=== PATIENT | male | born 1960 | race Two or more races ===

== ENCOUNTER 2016-12-31 13:06 | Inpatient (IN) | payer OTHER ==
[~2016-12-31] VITALS: Ht 182.9 cm; Wt 61.7 kg
--- NOTE | 2016-12-31 13:18 | NUR ---
PT BIBRA TO ER BED 14. C/O DIZZINESS. PT STATES HAD A SYNCOPAL EPISODE EARLIER THIS MORNING. ALSO C/O LOWER EXTREMITY PAIN. WOUNDS NOTED TO W/ VARRYING STAGES OF HEALING. APPEARS ANXIOUS. ON MONITIOR. AWAITINGMD EVAL.
--- NOTE | 2016-12-31 13:20 | NUR ---
DR QUINTANILLA AT BEDSIDE FOR EVAL.
[2016-12-31] MEDS ORDERED: IV NS 0.9% 1,000 ML BAG IV ONE (13:30)
[2016-12-31] MEDS ORDERED: IV NS 0.9% 1,000 ML ONE (13:41)
[2016-12-31] MEDS ORDERED: IV SET PRIMARY 1 EA INFUS.SET MC ONE (13:41)
[2016-12-31] MEDS ORDERED: clonazePAM 1 MG TABLET ONE (13:41)
[2016-12-31] MEDS ORDERED: clonazePAM 1 MG TABLET PO ONE (14:00)
--- NOTE | 2016-12-31 14:00 | NUR ---
IV LINE STARTED BLOOD DRAWN AND SENT TO LAB.
[2016-12-31 14:09] LABS: BASOPHILS % (AUTO) 0.5 % (0.0-2.0); EOSINOPHILS # (AUTO) 0.1 /CMM (0.0-0.7); EOSINOPHILS % (AUTO) 1.1 % (0.0-6.0); HEMATOCRIT 39 % (39-51); HEMOGLOBIN 12.4 g/dL (13.5-17.5); LYMPHOCYTES # (AUTO) 0.4 /CMM (0.8-4.8); LYMPHOCYTES % (AUTO) 7.6 % (20.0-44.0); MEAN CORPUSCULAR HEMOGLOBIN 26 PG (26.0-33.0); MEAN CORPUSCULAR HGB CONC 32 g/dl (31.0-36.0); MEAN CORPUSCULAR VOLUME 82 fL (80-96); MONOCYTES # (AUTO) 0.3 /CMM (0.1-1.30); MONOCYTES % (AUTO) 6.3 % (2.0-12.0); NEUTROPHILS % (AUTO) 84.5 % (43.0-81.0); PLATELET COUNT (AUTO) 414 /CMM (150-450); RDW COEFFICIENT OF VARIATION 16.2 (11.5-15.0); RED BLOOD CELL COUNT(AUTO) 4.76 MIL/uL (4.5-6.0); WHITE BLOOD COUNT (AUTO) 4.8 K/uL (4.3-11.0)
[2016-12-31 14:18] LABS: CALCIUM, SERUM 8.3 mg/dL (8.5-10.1); CARBON DIOXIDE 26 mmol/L (21-32); CHLORIDE 101 mmol/L (98-107); CREATININE 0.8 mg/dL (0.6-1.3); GLUCOSE 135 mg/dL (74-106); POTASSIUM 4.2 mmol/L (3.5-5.1); SODIUM SERUM 135 mmol/L (136-145); UREA NITROGEN, BLOOD 17 mg/dL (7-18)
[2016-12-31 14:22] LABS: INR 1.12 (0.87-1.13); PROTHROMBIN TIME 11.7 SECS (9.5-12.7)
[2016-12-31 14:24] LABS: ALANINE AMINOTRANSFERASE 38 U/L (12-78); ALBUMIN 3.4 g/dL (3.4-5.0); ALKALINE PHOSPHATASE 150 U/L (46-116); ASPARTATE AMINOTRANSFERASE 80 U/L (15-37); BILIRUBIN,DIRECT 0.6 mg/dL (0.0-0.2); TOTAL PROTEIN, SERUM 8.4 g/dL (6.4-8.2)
[2016-12-31 14:26] LABS: TROPONIN I < 0.017 ng/mL (0.00-0.056)
[2016-12-31] MEDS ORDERED: MORPHINE SULFATE SR 30 MG TABLET.SA PO ONE (14:30)
[2016-12-31] MEDS ORDERED: hydrOXYzine 10 MG TABLET PO ONE (14:30)
[2016-12-31] MEDS ORDERED: EMTR1TAB17 PO (14:48)
[2016-12-31] MEDS ORDERED: CLON1TAB PO (14:48)
[2016-12-31] MEDS ORDERED: CALC-838 PO (14:48)
[2016-12-31] MEDS ORDERED: ATOV750O PO (14:48)
[2016-12-31] MEDS ORDERED: DARU1TAB PO (14:48)
[2016-12-31] MEDS ORDERED: MORP30TA PO (14:48)
[2016-12-31] MEDS ORDERED: ACYC800T PO (14:48)
[2016-12-31] MEDS ORDERED: BUPR300T52 PO (14:48)
[2016-12-31] MEDS ORDERED: CALC-883 PO (14:48)
[2016-12-31] MEDS ORDERED: HYDR50CA PO (14:48)
[2016-12-31] MEDS ORDERED: DOLU50TA PO (14:48)
[2016-12-31] MEDS ORDERED: FOLI1TAB16 PO (14:48)
[2016-12-31] MEDS ORDERED: DOCU-25 PO (14:48)
[2016-12-31] MEDS ORDERED: ZINC50TA2 PO (14:48)
--- NOTE | 2016-12-31 14:50 | NUR ---
REPORT GIVEN TO KAYA. PT AWAITING TRANSFER TO FLOOR.
[2016-12-31 15:25] VITALS: BP 127/86
[2016-12-31 15:30] VITALS: BP 127/86
[2016-12-31] MEDS ORDERED: Medication Not On Formulary EA (Emtricitabine/Tenofov Alafenam (Descovy 200-25 mg Tablet PO SCH (15:30)
[2016-12-31] MEDS: ATOVAQUONE SUSP 750 MG/5 ML PACKET PO SCH ×2 (15:30→18:26)
[2016-12-31] MEDS ORDERED: Medication Not On Formulary EA (Dolutegravir Sodium (Tivicay) 50 MG) PO SCH (15:30)
--- NOTE | 2016-12-31 15:30 | NUR ---
RN NOTES RECEIVED PATIENT FROM ER, ARRIVED VIA GURNEY ASSISTED TO BED. PATIENT AWAKE ALERT AND VERBALLY RESPONSIVE ABLE TO MAKE NEEDS KNOWN. RESPIRATIONS EVEN AND UNLABORED, PER PATIENT HAS ANXIETY AND CHRONIC LEG WOUNDS WILL ASSESS. DR. SANDOVAL AWARE OF PATIENT'S ARRIVAL WILL CARRY OUT ADMISSION ORDERS AND CONTINUE TO MONITOR. IV ACCESS TO RIGHT AC NOTED PATENT AND INTACT NO REDNESS OR INFILTRATION NOTED. ORIENTED TO ROOM AND UNIT, CALL LIGHT WITHIN EASY REACH, WILL CONTINUE TO MONITOR
[2016-12-31] MEDS ORDERED: LORAZEPAM INJ 2 MG/ML VIAL ONE (15:54)
--- NOTE | 2016-12-31 16:10 | NUR ---
PT REFUSING TO GO TO CT SCAN. DEMANDING FOR ATIVAN. DR NAM MADE AWARE. ORDER FOR ATIVAN 1MG IVP. ORDER CARRIED OUT.
[2016-12-31] MEDS ORDERED: IV NS 0.9% 1,000 ML IV PRN (16:19)
[2016-12-31] MEDS ORDERED: MAG HYDROX/AL HYDROX/SIMETH 30 ML UDC PO PRN (16:30)
[2016-12-31] MEDS ORDERED: ZOLPIDEM TARTRATE 5 MG TABLET PO PRN (16:30)
[2016-12-31] MEDS: PANTOPRAZOLE 40 MG TABLET.DR PO SCH (16:30)
[2016-12-31] MEDS ORDERED: MAGNESIUM HYDROXIDE 30 ML UDC PO PRN (16:30)
[2016-12-31] MEDS ORDERED: Z GUARD REMEDY 2 OZ OINT TP PRN (16:30)
[2016-12-31] MEDS ORDERED: ONDANSETRON HCL/PF 4 MG/2 ML VIAL IVP PRN (16:30)
[2016-12-31] MEDS ORDERED: ACETAMINOPHEN 325 MG TABLET PO PRN (16:30)
[2016-12-31] MEDS ORDERED: hydrOXYzine PAMOATE 25 MG CAPSULE PO SCH (17:00)
[2016-12-31] MEDS: FOLIC ACID 1 MG TABLET PO SCH (18:26)
[2016-12-31] MEDS: ACYCLOVIR 800 MG TABLET PO SCH (18:26)
[2016-12-31] MEDS: DOCUSATE SODIUM 100 MG CAPSULE PO SCH (18:26)
[2016-12-31] MEDS: HYDROCODONE/APAP 5/325MG 1 EACH TABLET PO PRN ×2 (18:30→23:00)
--- NOTE | 2016-12-31 19:30 | NUR ---
ARMORED VEHICLE OFFICER NOTE RECEIVED PATIENT AWAKE AND ALERT IN BED. ABLE TO MAKE NEEDS KNOWN. NO RESPIRATORY DISTRESS OR SOB NOTED. PATIENT STATES HE IS HAVING 8/10 GENERALIZED PAIN. RELAXATION TECHNIQUES PROVIDED. WILL ADMINISTER PAIN MEDICATION ORDERED. IV SITE INTACT, WITH NO REDNESS OR INFILTRATION NOTED. BED LOCKED AND IN LOWEST POSITION. SIDE RAILS UP, CALL LIGHT WITHIN REACH. WILL CONTINUE TO MONITOR.
--- NOTE | 2016-12-31 19:30 | NUR ---
RN NOTES PATIENT IN AWAKE ALERT AND VERBALLY RESPONSIVE ABLE TO MAKE NEEDS KNOWN. RESPIRATIONS EVEN AND UNLABORED, PER PATIENT HAS ANXIETY AND CHRONIC LEG WOUNDS WILL ASSESS. DR. SANDOVAL AWARE OF PATIENT'S ARRIVAL WILL CARRY OUT ADMISSION ORDERS AND CONTINUE TO MONITOR. IV ACCESS TO RIGHT AC NOTED PATENT AND INTACT NO REDNESS OR INFILTRATION NOTED. ORIENTED TO ROOM AND UNIT, CALL LIGHT WITHIN EASY REACH, WILL CONTINUE TO MONITOR AND ENDORSE TO NEXT SHIFT FOR CONTINUITY OF CARE
[2016-12-31 20:00] VITALS: BP 144/87
[2016-12-31] MEDS: MORPHINE SULFATE SR 30 MG TABLET.SA PO PRN (20:18)
[2016-12-31 22:00] VITALS: BP 144/87
[2016-12-31] MEDS: clonazePAM 1 MG TABLET PO SCH (22:25)
[2017-01-01] VITALS (8 sets, daily range): BP systolic 105–146; BP diastolic 73–98
--- NOTE | 2017-01-01 00:38 | NUR ---
RN NOTES: PATIENT REQUESTED FOR SOMETHING TO HELP HIM SLEEP. ADMINISTERED AMBIEN PO. WILL CONT TO MONITOR.
[2017-01-01] MEDS: HYDROCODONE/APAP 5/325MG 1 EACH TABLET PO PRN ×4 (03:40→17:50)
--- NOTE | 2017-01-01 06:23 | NUR ---
TECHNICIAN CHEMICAL CLEANING NOTE PATIENT STABLE. AWAKE IN BED. NO RESPIRATORY DISTRESS OR SOB AT THIS TIME. PATIENT STATES HE IS HAVING 8/10 GENERALIZED PAIN. NO PAIN MEDICATION DUE AT THIS TIME. RELAXATION TECHNIQUES PROVIDED. ALL NEEDS MET AND ATTENDED TO. WILL ENDORSE TO DAY SHIFT FOR SUNNY.
[2017-01-01] MEDS: PANTOPRAZOLE 40 MG TABLET.DR PO SCH (07:30)
--- NOTE | 2017-01-01 07:56 | NUR ---
OVERHEAD CRANE INSPECTOR INITIAL NOTES REPORT RECEIVED AT THE BEDSIDE. PATIENT IS SLEEPING. NO SOB OR DISTRESS NOTED AT THIS TIME. PATIENT DOES NOT APPEAR TO BE IN PAIN, NO FACIAL GRIMACE NOTED. HEART RATE ST AT 107. BED IN A LOW POSITION, CALL LIGHT WITHIN PATIENT REACH. WILL CONTINUE TO MONITOR.
[2017-01-01] MEDS: ATOVAQUONE SUSP 750 MG/5 ML PACKET PO SCH (08:00)
[2017-01-01] MEDS: ACYCLOVIR 800 MG TABLET PO SCH ×2 (08:00→08:06)
[2017-01-01] MEDS: DOCUSATE SODIUM 100 MG CAPSULE PO SCH ×2 (08:02→17:00)
[2017-01-01] MEDS: FOLIC ACID 1 MG TABLET PO SCH (08:03)
[2017-01-01] MEDS: hydrOXYzine PAMOATE 25 MG CAPSULE PO SCH ×2 (08:04→17:50)
[2017-01-01] MEDS: clonazePAM 1 MG TABLET PO SCH ×2 (08:04→17:50)
[2017-01-01] MEDS: CALCIUM CARB 600MG /VIT D 1 EACH TABLET PO SCH (08:05)
[2017-01-01] MEDS: CHOLECALCIFEROL 1,000 UNIT TABLET (VIT D3) PO SCH (08:05)
[2017-01-01] MEDS: ZINC SULFATE 220 MG CAPSULE PO SCH (08:05)
[2017-01-01] MEDS: BUPROPION XL 150 MG TAB.ER.24 PO SCH (08:05)
[2017-01-01] MEDS: MORPHINE SULFATE SR 30 MG TABLET.SA PO PRN ×2 (10:02→23:02)
[2017-01-01 10:14] LABS: BASOPHILS % (AUTO) 0.3 % (0.0-2.0); EOSINOPHILS # (AUTO) 0.3 /CMM (0.0-0.7); EOSINOPHILS % (AUTO) 8.6 % (0.0-6.0); HEMATOCRIT 37 % (39-51); HEMOGLOBIN 11.7 g/dL (13.5-17.5); LYMPHOCYTES # (AUTO) 0.3 /CMM (0.8-4.8); LYMPHOCYTES % (AUTO) 9.7 % (20.0-44.0); MEAN CORPUSCULAR HEMOGLOBIN 26 PG (26.0-33.0); MEAN CORPUSCULAR HGB CONC 32 g/dl (31.0-36.0); MEAN CORPUSCULAR VOLUME 83 fL (80-96); MONOCYTES # (AUTO) 0.3 /CMM (0.1-1.30); MONOCYTES % (AUTO) 8.2 % (2.0-12.0); NEUTROPHILS # (AUTO) 2.5 /CMM (1.8-8.9); NEUTROPHILS % (AUTO) 73.2 % (43.0-81.0); PLATELET COUNT (AUTO) 333 /CMM (150-450); RDW COEFFICIENT OF VARIATION 17.1 (11.5-15.0); RED BLOOD CELL COUNT(AUTO) 4.45 MIL/uL (4.5-6.0); WHITE BLOOD COUNT (AUTO) 3.4 K/uL (4.3-11.0)
[2017-01-01 10:22] LABS: ALBUMIN 3.2 g/dL (3.4-5.0); BILIRUBIN,TOTAL 1.1 mg/dL (0.2-1.0); CALCIUM, SERUM 8.4 mg/dL (8.5-10.1); CREATININE 0.7 mg/dL (0.6-1.3); MAGNESIUM 2.3 mg/dL (1.8-2.4); PHOSPHORUS 4.4 mg/dL (2.5-4.9); POTASSIUM 3.6 mmol/L (3.5-5.1); TOTAL PROTEIN, SERUM 8.2 g/dL (6.4-8.2)
[2017-01-01 10:28] LABS: PREALBUMIN 13.6 MG/DL (18.0-35.7); THYROID STIMULATING HORMONE 7.79 uIU/mL (0.358-3.74)
--- NOTE | 2017-01-01 11:01 | NUR ---
Social service consult requested by Dr. Barboza for possible homelessness. Pt. was admitted to [facility] for syncope. Pt. is HIV positive and non-compliant with his medication. ZOEY met with pt. bedside. Pt. is alert and oriented x4. Pt. informed ZOEY he has been HIV positive for the past 33 years. Pt. states he has been to several hospitals in the past month. Pt. was initially at [facility] for four days and left AMA. Pt. states he took the bus to [facility] where he was hospitalized for a few days and discharged to the [facility] clinic located on [address], in [place]. Pt. was at the clinic yesterday and was sent to [facility] ED due to a syncope episode. Pt. informed ZOEY he resides at [facility] and has a housing advocate named Jaime. Pt. was unable to give ZOEY Sandoval's contact information. Pt. is open to placement and ZOEY informed trimming caser Daxa regarding pt. wanting placement. Pt. has an appointment tomorrow at the [facility] clinic on [address], in [place].
--- NOTE | 2017-01-01 11:38 | NUR ---
WOUND CARE CONSULT: PT PRESENTS WITH SACRAL SCARRING, MULTIPLE SCARS ON BODY INCLUDING LOWER LEGS AND SOME DRY ULCERS TO LOWER LEGS, PRESENT ON ADMISSION. EDEMA RESOLVING IN LOWER LEGS. RECOMMENDATIONS MADE FOR WOUND CARE. DISCUSSED WITH NURSING STAFF. DPM CONSULT WAS CALLED BY . WLL SEE PRN. [place]SON IN AGREEMENT WITH PLAN OF CARE.
--- NOTE | 2017-01-01 11:57 | NUR ---
RN NOTE PATIENT IS REFUSING IV FLUIDS AT THIS TIME. STATES "I DRINK ENOUGH" WILL INFORM MD.
[2017-01-01] MEDS ORDERED: HYDROGEL DRESSING 90 GM TUBE TP PRN (12:00)
[2017-01-01] MEDS: HYDROGEL DRESSING 90 GM TUBE TP SCH (13:22)
--- NOTE | 2017-01-01 15:18 | NUR ---
SW received a call from pt's DANYELLE Renteria informing SW that pt. would like to speak with her. SW met with pt. bedside. Pt. was sitting on his bed naked with a T-shirt covering his private parts. Pt. informed SW that he would like to leave the hospital because he hasn't seen any doctors and wants to go to the clinic to get his medications. SW explained to pt. that the doctors have seen him today and it would be best for him to stay at the hospital until his appointment tomorrow which is across the street from the hospital. Pt. informed SW he will make a call and decide as to staying or leaving. SW informed DANYELLE Renteria and artist suspect Adriana regarding pt. might wanting to leave AMA.
--- NOTE | 2017-01-01 18:19 | NUR ---
RN NOTES PATIENT STARTED EEG AND THEN ASKED TO STOP THE TEST. PATIENT IS REFUSING TO FINISH.
--- NOTE | 2017-01-01 18:36 | NUR ---
MS RN CLOSING NOTES NO SIGNIFICANT CHANGES IN PATIENT CONDITION THROUGHOUT THE SHIFT. NO SOB OR DISTRESS NOTED AT THIS TIME. PATIENT MEDICATED FOR PAIN. BED IN LOW POSITION, CALL LIGHT WITHIN PATIENT REACH. WILL ENDORSE FOR SUNNY.
--- NOTE | 2017-01-01 19:50 | NUR ---
MS/EMERGENCY SERVICES DISPATCHER; RECEIVED PT AT THE HALLWAY ON A WHEEL CHAIR AWAKE, ALERT AND ORIENTED. NO MENTIONED OF PAIN. HL RAC INTACT. PT WEARING HIS ON CLOTHES. PT WANTS TO SMOKE. I TOLD THE PT HE NEEDS TO SIGN THE SMOKING CONSENT WITH HE DID. PT WENT TO THE LOBBY WITH LORRY WEIGHER ON A WHEELCHAIR TO SMOKE. CONTINUE TO MONITOR.
--- NOTE | 2017-01-01 20:10 | NUR ---
MS/COMMERCIAL GREEN BUILDING DESIGNER; PT BACK FROM SMOKING ON A WHEELCHAIR ACCOMPANIED BY MANAGER RECRUITING. WENT TO HIS ROOM. WILL CONTINUE TO MONITOR. PT HAS NO IVF DUE TO REFUSING SINCE FROM DAY SHIFT .
--- NOTE | 2017-01-02 | NUR ---
MS/CUTTING AND SPLICING SUPERVISOR; PT INSISTED TO SMOKE, CHARGE NURSE INFORMED. PT WENT TO THE LOBBY VIA WHEELCHAIR ACCOMPANIED BY THE MUSEUM ATTENDANT.
--- NOTE | 2017-01-02 00:15 | NUR ---
MS/CAMP HEAD COUNSELOR; PT BACK FROM SMOKING ACCOMPANIED BY THE CAR SALTER VIA WHEELCHAIR. PT WENT TO BED.
--- NOTE | 2017-01-02 06:00 | NUR ---
MS/CITY DISTRIBUTION CLERK; PT WENT TO SMOKE AGAIN ACCOMPANIED BY THE DENTAL CERAMIST ASSISTANT VIA WHEELCHAIR.
--- NOTE | 2017-01-02 06:45 | NUR ---
MS/FASHION DIRECTOR; PT SLEPT ONLY FOR SHORT TIME . BREATHING NON LABORED. WILL CONTINUE TO MONITOR. CALL LIGHT WITHIN REACH. PT SAID HE VOIDED X5 BUT NO BM. WILL ENDORSE TO THE DAY SHIFT NURSE.
[2017-01-02 07:10] LABS: *BASOS 0 % (.); *EOS 9 % (.); *EOS, ABSOLUTE 0.3 x10E3/uL (0.0-0.4); *HCT 37.6 % (37.5-51.0); *HGB 11.7 g/dL (12.6-17.7); *IMMATURE GRANULOCYTES 0 % (.); *LYMPHOCYTES 13 % (.); *LYMPHS, ABSOLUTE 0.4 x10E3/uL (0.7-3.1); *MCH 25.9 pg (26.6-33.0); *MCHC 31.1 g/dL (31.5-35.7); *MCV 83 fL (79-97); *MONOCYTES 9 % (.); *MONOS, ABSOLUTE 0.3 x10E3/uL (0.1-0.9); *NEUTROPHILS 69 % (.); *NEUTROPHILS, ABSOLUTE 2.1 x10E3/uL (1.4-7.0); *PLT 383 x10E3/uL (150-379); *RBC 4.51 x10E6/uL (4.14-5.80); *RDW 16.3 % (12.3-15.4)
--- NOTE | 2017-01-02 07:10 | NUR ---
MS RN OPENING NOTES RECEIVED PT. FROM NIGHTSHIFT NURSE IN STABLE CONDITION. PT. IS A/O X3. NO SOB OR SIGNS OF DISTRESS NOTED. BREATHING IS EVEN AND UNLABORED. ON ROOM AIR AND SATING WELL AT 100%. PT. DENIES ANY DIZZINESS AT THIS TIME. NO SYNCOPAL EPISODES OCCURRED DURING THE NIGHTSHIFT. IV PRESENT ON RIGHT AC PATENT AND INTACT. PT. IS REFUSING ORDERED NS FLUIDS AT THIS TIME. MD IS AWARE. BED IN LOW LOCKED POSITION, SIDE RAILS UP X2, CALL LIGHT WITHIN REACH. WILL CONTINUE TO MONITOR.
[2017-01-02 07:58] VITALS: BP 124/92
[2017-01-02 08:00] VITALS: BP 124/92
[2017-01-02] MEDS: ACYCLOVIR 800 MG TABLET PO SCH (08:23)
[2017-01-02] MEDS: clonazePAM 1 MG TABLET PO SCH ×2 (08:23→16:54)
[2017-01-02] MEDS: HYDROGEL DRESSING 90 GM TUBE TP SCH (08:23)
[2017-01-02] MEDS: hydrOXYzine PAMOATE 25 MG CAPSULE PO SCH ×2 (08:28→16:54)
[2017-01-02] MEDS: ZINC SULFATE 220 MG CAPSULE PO SCH (08:32)
[2017-01-02] MEDS: CHOLECALCIFEROL 1,000 UNIT TABLET (VIT D3) PO SCH (08:32)
[2017-01-02] MEDS: FOLIC ACID 1 MG TABLET PO SCH (08:32)
[2017-01-02] MEDS: DOCUSATE SODIUM 100 MG CAPSULE PO SCH ×2 (08:33→16:54)
[2017-01-02] MEDS: ATOVAQUONE SUSP 750 MG/5 ML PACKET PO SCH (08:33)
[2017-01-02] MEDS: PANTOPRAZOLE 40 MG TABLET.DR PO SCH (08:34)
[2017-01-02] MEDS: CALCIUM CARB 600MG /VIT D 1 EACH TABLET PO SCH (08:36)
[2017-01-02] MEDS: BUPROPION XL 150 MG TAB.ER.24 PO SCH (08:36)
--- NOTE | 2017-01-02 09:26 | NUR ---
MS RN NOTES PT. WAS WHEELED OFF THE UNIT TO GO SMOKE. ACCOMPANIED BY PRICILLA THE AIRLINE MECHANIC
[2017-01-02] MEDS ORDERED: LACTULOSE 10 G/15 ML UDC (PYXIS) PO PRN (10:30)
[2017-01-02] MEDS: GABAPENTIN 300 MG CAPSULE PO SCH ×3 (10:48→16:53)
[2017-01-02] MEDS: SENNOSIDES 8.6 MG TABLET PO SCH ×2 (10:48→21:05)
[2017-01-02 12:11] LABS: *% CD 4 POS. LYMPH 6.3 % (30.8-58.5); *% CD 8 POS. LYMPH 75.7 % (12.0-35.5); *ABSOLUTE CD 4 HELPER 25 /uL (359-1519); *ABSOLUTE CD 8 SUPPRESSOR 303 /uL (109-897); *CD4/CD8 RATIO 0.08 (0.92-3.72)
--- NOTE | 2017-01-02 12:49 | NUR ---
SW met with pt. bedside and his [facility] case reviewer Michelle Giraldo and Macy Hoffman [phone], Managed Care Weed Controller bedside. Michelle and Macy discussed with pt. if he wants to continue to be managed by [facility] since pt. has been non-compliant and leaving AMA from several hospitals. Currently pt. has agreed into a verbal contract with [facility] to follow plan of care. Pt. has an outside psychiatrist that he sees frequently. During the meeting , pt. became emotional and started to tear up stating his youngest sister has cancer and recently had a double mastectomy. SW offered emotional support to pt. Pt. is willing to go to long-term facility and case reviewer Negra Mendez is aware. Weed Controller Randi informed SW that pt. is involved with [facility]. Randi also stated that if pt. disagrees to go to SNF, [facility] sober living programs in [place] might be an option as well and to call Ashutosh at .
[2017-01-02 13:26] LABS: BASOPHILS % (AUTO) 0.4 % (0.0-2.0); EOSINOPHILS # (AUTO) 0.4 /CMM (0.0-0.7); EOSINOPHILS % (AUTO) 11.9 % (0.0-6.0); HEMATOCRIT 36 % (39-51); HEMOGLOBIN 11.4 g/dL (13.5-17.5); LYMPHOCYTES # (AUTO) 0.6 /CMM (0.8-4.8); LYMPHOCYTES % (AUTO) 19.6 % (20.0-44.0); MEAN CORPUSCULAR HEMOGLOBIN 27 PG (26.0-33.0); MEAN CORPUSCULAR HGB CONC 32 g/dl (31.0-36.0); MEAN CORPUSCULAR VOLUME 84 fL (80-96); MONOCYTES # (AUTO) 0.3 /CMM (0.1-1.30); MONOCYTES % (AUTO) 10.1 % (2.0-12.0); NEUTROPHILS # (AUTO) 1.9 /CMM (1.8-8.9); PLATELET COUNT (AUTO) 317 /CMM (150-450); RDW COEFFICIENT OF VARIATION 17.1 (11.5-15.0); RED BLOOD CELL COUNT(AUTO) 4.26 MIL/uL (4.5-6.0); WHITE BLOOD COUNT (AUTO) 3.3 K/uL (4.3-11.0)
[2017-01-02 13:35] LABS: BILIRUBIN,TOTAL 0.7 mg/dL (0.2-1.0); CALCIUM, SERUM 8.1 mg/dL (8.5-10.1); CREATININE 0.7 mg/dL (0.6-1.3); TOTAL PROTEIN, SERUM 7.7 g/dL (6.4-8.2)
[2017-01-02] MEDS: MORPHINE SULFATE SR 30 MG TABLET.SA PO PRN (14:37)
[2017-01-02 16:00] VITALS: BP 107/73
--- NOTE | 2017-01-02 16:25 | NUR ---
ZOEY received a call from Med Surg director Corey stating that pt. would like to speak with SW. SW met with pt. bedside. Pt. informed SW that he would like for someone to buy him cigarettes. SW reiterated to pt. informing him that it is against hospital policy to buy him cigarettes. Pt. was not very happy with the response SW gave him and began mumbling saying, " this is so stupid, thank you."
[2017-01-02] MEDS: HYDROCODONE/APAP 5/325MG 1 EACH TABLET PO PRN (17:26)
--- NOTE | 2017-01-02 18:41 | NUR ---
MS RN CLOSING NOTES PT. REMAINS IN STABLE CONDITION. ALL NEEDS WERE MET DURING SHIFT AND ORDERS CARRIED OUT ACCORDINGLY. THERE WERE NO ACUTE CHANGES IN CONDITION DURING SHIFT. ALL SAFETY MEASURES IN PLACE. WILL ENDORSE TO NIGHTSHIFT NURSE FOR SUNNY
--- NOTE | 2017-01-02 19:30 | NUR ---
RN NOTES RECEIVED PATIENT UP IN WHEELCHAIR, AO X 3, ABLE TO MAKE NEEDS KNOWN. NO ACUTE DISTRESS NOTED. IV SITE PATENT, INTACT; FLUSHED. REASSURANCE GIVEN FOR ANXIETY. SAFETY REMINDERS GIVEN. CALL LIGHT WITHIN EASY REACH. WILL CONTINUE TO MONITOR.
[2017-01-02 20:00] VITALS: BP 104/73
--- NOTE | 2017-01-03 06:10 | NUR ---
RN NOTES PATIENT ASLEEP, EASILY AROUSABLE. RESPIRATIONS EVEN. NO SIGNS OF PAIN NOTED. DUE MEDS GIVEN WITH NO ASE NOTED. NEEDS ATTENDED. SAFETY PRECAUTIONS AND COMFORT MEASURES IN PLACE. WILL GIVE REPORT TO DAY SHIFT FOR CONTINUITY OF CARE.
[2017-01-03 08:00] VITALS: BP 100/58
--- NOTE | 2017-01-03 08:00 | NUR ---
m/s rehabilitation engineer: initial assessment received pt in bed sounds asleep, but easily arousable. no s/s of discomfort. call light within reach. will continue to monitor.
[2017-01-03] MEDS ORDERED: ASPIRIN 81 MG TAB.CHEW PO SCH (09:00)
[2017-01-03] MEDS: ZINC SULFATE 220 MG CAPSULE PO SCH (10:10)
[2017-01-03] MEDS: PANTOPRAZOLE 40 MG TABLET.DR PO SCH (10:10)
[2017-01-03] MEDS: clonazePAM 1 MG TABLET PO SCH (10:11)
[2017-01-03] MEDS: FOLIC ACID 1 MG TABLET PO SCH (10:11)
[2017-01-03] MEDS: hydrOXYzine PAMOATE 25 MG CAPSULE PO SCH (10:11)
[2017-01-03] MEDS: DOCUSATE SODIUM 100 MG CAPSULE PO SCH (10:11)
[2017-01-03] MEDS: ACYCLOVIR 800 MG TABLET PO SCH (10:11)
[2017-01-03] MEDS: CHOLECALCIFEROL 1,000 UNIT TABLET (VIT D3) PO SCH (10:11)
[2017-01-03] MEDS: GABAPENTIN 300 MG CAPSULE PO SCH ×2 (10:11→13:12)
[2017-01-03] MEDS: ATOVAQUONE SUSP 750 MG/5 ML PACKET PO SCH (10:13)
[2017-01-03] MEDS ORDERED: NICOTINE PATCH (21MG) 21 MG PATCH.TD24 TD SCH (10:14)
[2017-01-03] MEDS: BUPROPION XL 150 MG TAB.ER.24 PO SCH (10:14)
[2017-01-03] MEDS: CALCIUM CARB 600MG /VIT D 1 EACH TABLET PO SCH (10:56)
[2017-01-03] MEDS: MORPHINE SULFATE SR 30 MG TABLET.SA PO PRN (10:57)
--- NOTE | 2017-01-03 11:00 | NUR ---
m/s nurse transplant: notes seen by dr. love's student at this time.
[2017-01-03] MEDS: HYDROGEL DRESSING 90 GM TUBE TP SCH (11:04)
--- NOTE | 2017-01-03 11:30 | NUR ---
m/s chief of staff doctor: notes tx done to ble ulcer. instructed to call for assistance. will continue to monitor.
--- NOTE | 2017-01-03 13:37 | NUR ---
ZOEY was informed by director of casework Negra Mendez that pt. was accepted to [facility] and will be going there today. ZOEY contacted [facility] hospitality coordinator Michelle Giraldo and left her a voicemail message informing her that pt. will be discharged to [facility] located at [id number] [place] [address]. [place] .
--- NOTE | 2017-01-03 14:00 | NUR ---
m/s head silverman: md visit seen and examined by dr. love with order to discharge to [facility]. order acknowledged. pt made aware.
--- NOTE | 2017-01-03 14:45 | NUR ---
m/s route process administrator: notes placed a call to hermann lucero (sister) at this #[phone], but it's not a working number. pt doesn't her phone number. josiane sims notified, spoke to flo (rn) for continuity of care.
--- NOTE | 2017-01-03 15:30 | NUR ---
m/s turfgrass management professor: d'c instructions discharged instructions given to pt and verbalized understanding. pt refused ble ulcer photos. drsg remains in place, clean, and dry. no drainage/discharge noted. still awaiting for ambulance. will monitor.
--- NOTE | 2017-01-03 15:40 | NUR ---
m/s information analyst: notes h/l removed with tip intact with no swelling, no redness, and no bleeding noted.
--- NOTE | 2017-01-03 16:20 | NUR ---
m/s water restoration technician: notes med response here and report given to one of the crew. all belongings/valuables returned to pt
--- NOTE | 2017-01-03 17:00 | NUR ---
m/s software computer specialist: discharged discharged to snf in stable condition with all valuables and all d'c papers via roger accompanied by 2 med response crew.
== END 2017-01-03 17:03 | DRG 48 ==
LOC: ER 13:09 → TELE 15:05 → MED 01-01 08:48
PROVIDERS: ADMIT Internal Medicine; ATTEND Internal Medicine
DX: G90.8 Other disorders of autonomic nervous system (principal); B20 Human immunodeficiency virus [HIV] disease; E43 Unspecified severe protein-calorie malnutrition; R64 Cachexia; E87.1 Hypo-osmolality and hyponatremia; K76.0 Fatty (change of) liver, not elsewhere classified; D63.8 Anemia in other chronic diseases classified elsewhere; S81.801A Unspecified open wound, right lower leg, initial encounter; F17.210 Nicotine dependence, cigarettes, uncomplicated; R73.9 Hyperglycemia, unspecified; Z68.1 Body mass index [BMI] 19.9 or less, adult; R74.0 Nonspecific elevation of levels of transaminase and lactic acid dehydrogenase [LDH]; E03.9 Hypothyroidism, unspecified; R90.89 Other abnormal findings on diagnostic imaging of central nervous system; G93.9 Disorder of brain, unspecified; S81.802A Unspecified open wound, left lower leg, initial encounter; X58.XXXA Exposure to other specified factors, initial encounter; Y93.9 Activity, unspecified; Y92.9 Unspecified place or not applicable; Y99.9 Unspecified external cause status; Z59.0 Homelessness
CPT/HCPCS: 36415; 70450-TC; 71010-TC; 76700-TC; 80048-TC; 80053-TC; 80061-TC; 80074; 80076-TC; 82962-TC; 83735-TC; 84100-TC; 84134-TC; 84443-TC; 84484-TC; 85025-TC; 85730-TC; 86360; 87081-TC; 87340; 93880-TC; 97001-TC; A4606; A6248; A6402; J2060; J7030; Q0177; Z7610

== ENCOUNTER 2017-01-08 15:32 | Inpatient (IN) | payer OTHER ==
[~2017-01-08] VITALS: Ht 188 cm; Wt 62.1 kg
[~2017-01-08 15:32] MED LIST: ACYC800T PO; ATOV750O PO; BUPR300T52 PO; CALC-838 PO; CALC-883 PO; CLON1TAB PO; DARU1TAB PO; DOCU-25 PO; DOLU50TA PO; EMTR1TAB17 PO; FOLI1TAB16 PO; HYDR50CA PO; MORP30TA PO; ZINC50TA2 PO
--- NOTE | 2017-01-08 15:45 | NUR ---
PT BIB PA C/O GENERALIZED WEAKNESS AND LLE SWELLING. C/O PAIN "IN THE KNEE JOINT", VERY TENDER TO PALP. RESP EVEN UNLABORED. SKIN WARM NONDIAPHORETIC, TAUT IN LLE. VSS. IN ER BED 12 ON MONITOR.
--- NOTE | 2017-01-08 16:12 | NUR ---
CALLED NURSING SUP. FOR MS BED
[2017-01-08] MEDS ORDERED: LIDOCAINE /MPF 1% VIAL 5 ML VIAL TP ONE (16:30)
[2017-01-08] MEDS ORDERED: IV NS 0.9% 1,000 ML BAG IV ONE (16:30)
[2017-01-08] MEDS ORDERED: ONDANSETRON HCL/PF 4 MG/2 ML VIAL IV ONE (16:30)
[2017-01-08] MEDS ORDERED: MORPHINE SULFATE INJ 2 MG/ML DISP.SYRIN IV ONE (16:30)
[2017-01-08 16:31] LABS: BASOPHILS # (AUTO) 0.1 /CMM (0.0-0.2); BASOPHILS % (AUTO) 2.5 % (0.0-2.0); EOSINOPHILS # (AUTO) 0.1 /CMM (0.0-0.7); EOSINOPHILS % (AUTO) 3.5 % (0.0-6.0); HEMATOCRIT 28 % (39-51); HEMOGLOBIN 9.2 g/dL (13.5-17.5); LYMPHOCYTES # (AUTO) 0.4 /CMM (0.8-4.8); LYMPHOCYTES % (AUTO) 11.4 % (20.0-44.0); MEAN CORPUSCULAR HEMOGLOBIN 27 PG (26.0-33.0); MEAN CORPUSCULAR HGB CONC 32 g/dl (31.0-36.0); MEAN CORPUSCULAR VOLUME 83 fL (80-96); MONOCYTES # (AUTO) 0.3 /CMM (0.1-1.30); MONOCYTES % (AUTO) 9.2 % (2.0-12.0); NEUTROPHILS # (AUTO) 2.6 /CMM (1.8-8.9); NEUTROPHILS % (AUTO) 73.4 % (43.0-81.0); PLATELET COUNT (AUTO) 239 /CMM (150-450); RDW COEFFICIENT OF VARIATION 15.6 (11.5-15.0); RED BLOOD CELL COUNT(AUTO) 3.42 MIL/uL (4.5-6.0); WHITE BLOOD COUNT (AUTO) 3.5 K/uL (4.3-11.0)
[2017-01-08] MEDS ORDERED: ONDANSETRON HCL/PF 4 MG/2 ML VIAL ONE (16:34)
[2017-01-08] MEDS ORDERED: MORPHINE SULFATE INJ 10 MG/ML DISP.SYRIN ONE (16:35)
[2017-01-08 16:44] LABS: CALCIUM, SERUM 7.9 mg/dL (8.5-10.1); CREATININE 0.8 mg/dL (0.6-1.3); INR 1.09 (0.87-1.13); POTASSIUM 3.8 mmol/L (3.5-5.1); PROTHROMBIN TIME 11.3 SECS (9.5-12.7)
[2017-01-08 16:49] LABS: ALBUMIN 2.3 g/dL (3.4-5.0); BILIRUBIN,DIRECT 1.6 mg/dL (0.0-0.2); BILIRUBIN,TOTAL 1.9 mg/dL (0.2-1.0)
--- NOTE | 2017-01-08 16:54 | NUR ---
REPORT GIVEN TO ALEXANDRIA BASSETT FOR ADMISSION
[2017-01-08] MEDS ORDERED: LIDOCAINE HCL/PF 1% 30 ML SDV ONE (17:01)
[2017-01-08] MEDS ORDERED: HYDROMORPHONE 1 MG/1 ML DISP.SYRIN IV STA (17:41)
[2017-01-08] MEDS ORDERED: DOXYCYCLINE 100 MG in IV D5W 100 ML IV STA (17:58)
[2017-01-08] MEDS ORDERED: LEVOFLOXACIN 750 MG /D5W 150ML 750 MG in PREMIX 1 EA IV SCH (18:00)
[2017-01-08] MEDS ORDERED: LEVOFLOXACIN 750 MG /D5W 150ML 150 ML IV ONE (18:09)
[2017-01-08] MEDS ORDERED: HYDROMORPHONE 1 MG/1 ML DISP.SYRIN ONE (18:10)
[2017-01-08] MEDS ORDERED: ZOLP5TAB7 PO (18:24)
[2017-01-08] MEDS ORDERED: ACET325T53 PO (18:24)
[2017-01-08] MEDS ORDERED: AZIT600T2 PO (18:24)
[2017-01-08] MEDS ORDERED: LACT10SO29 PO (18:24)
[2017-01-08] MEDS ORDERED: CHOL3000 PO (18:24)
--- NOTE | 2017-01-08 18:25 | NUR ---
PT TRANSPORTED TO 325 IN STABLE CONDITION WITH ABX ONGOING.
[2017-01-08] MEDS ORDERED: MAG30ORA PO (18:33)
[2017-01-08] MEDS ORDERED: MORP30TA10 PO (18:33)
[2017-01-08] MEDS ORDERED: MAGN400O6 PO (18:33)
[2017-01-08] MEDS ORDERED: GABA300C PO (18:33)
[2017-01-08] MEDS ORDERED: TRIM100T PO (18:47)
[2017-01-08] MEDS ORDERED: NICO1PAT28 TD (18:47)
[2017-01-08] MEDS ORDERED: SENN-18 PO (18:47)
[2017-01-08] MEDS ORDERED: PANT40TA2 PO (18:47)
[2017-01-08] MEDS ORDERED: ONDA4TAB8 PO (18:47)
[2017-01-08] MEDS ORDERED: OXYC-34 PO (18:47)
[2017-01-08] MEDS ORDERED: CALC-6 PO (18:47)
[2017-01-08] MEDS ORDERED: ZINC220C6 PO (18:47)
[2017-01-08] MEDS ORDERED: ACETAMINOPHEN 325 MG TABLET PO PRN (19:00)
[2017-01-08] MEDS ORDERED: ONDANSETRON HCL/PF 4 MG/2 ML VIAL IVP PRN (19:00)
--- NOTE | 2017-01-08 19:30 | NUR ---
MS BELKIS INITIAL NOTES RECEIVED REPORT FROM AM NURSE EVA JACKSON OF SEPTIC ARTHRITIS. PT IS ALERT ORIENTED , LYING ON HIS BED LEFT KNEE UP ON PILLOWS. SKIN WARM AND DRY TO TOUCH, HE 'S ASKING ABOUT HIS MEDICATION FOR PAIN I TOLD HIM I NEED TO CHECK FIRST WHAT MEDICATION HE HAVE TONIGHT. RE-ORIENTED HIM WHERE HE AT AND HOW TO USED THE CALL LIGHT SYSTEM. NO SIGNS OF ANY ACUTE DISTRESS NOTED.EDEMA NOTED ON HIS BOTH FEET. HE ASKED FOR SOMETHING TO EAT AND WE JUST OFFERED SANDWICH AND JUICE. KEPT HIM WARM AND COMFORTABLE AT ALL TIMES. PLACE CALL LIGHT AT REACH. WILL CONTINUE TO MONITOR.
[2017-01-08 20:00] VITALS: BP 108/74
[2017-01-08] MEDS ORDERED: CEFEPIME 2 GM in IV D5W 100 ML IV SCH ×4 (21:00)
[2017-01-08] MEDS ORDERED: TIGECYCLINE 100 MG in IV D5W 100 ML IV SCH (21:00)
[2017-01-08] MEDS ORDERED: CIPROFLOXACIN IV RTU 400 MG in PREMIX 1 EA IV SCH (21:00)
[2017-01-08] MEDS: IV NS 0.9% 1,000 ML IV PRN (21:14)
[2017-01-08] MEDS: HYDROMORPHONE INJ 2 MG/ML DISP.SYRIN IV PRN (21:18)
[2017-01-08] MEDS: CEFEPIME 2 GM in IV D5W 100 ML IV SCH (21:19)
--- NOTE | 2017-01-08 21:20 | NUR ---
MS ANIMAL HUMANE AGENT SUPERVISOR/NOTES C/O LEFT KNEE PAIN 03/02 , DILAUDID 1 MG IVP GIVEN ORDERED. REPOSITION PT FOR COMFORT. IVF NS AT 75ML/HR ALSO STARTED. LIGHT DINNER ALSO SERVED. WILL CONTINUE TO MONITOR.,PLACE CALL LIGHT AT REACH.
[2017-01-08] MEDS ORDERED: AZITHROMYCIN 600 MG TABLET PO SCH (21:30)
[2017-01-08] MEDS ORDERED: MORPHINE SULFATE SR 30 MG TABLET.SA PO PRN (21:30)
[2017-01-08] MEDS ORDERED: clonazePAM 1 MG TABLET PO PRN (21:30)
[2017-01-08] MEDS ORDERED: LACTULOSE 10 G/15 ML UDC (PYXIS) PO PRN (21:30)
--- NOTE | 2017-01-08 22:10 | NUR ---
RETORT ENGINEER/NOTES PT SEEMS COMFORTABLE AT THIS TIME. AND HE WANTS TO HAVE SMOKE AND GET SOME FRESH AIR. SPOKE TO HIM AND HE SIGNED THE CONSENT TO GO DOWN. EDUCATE REGARDING SMOKING GIVEN AND PT UNDERSTOOD WELL. MARILEE STODDARD ACCOMPANIED FOR PT SAFETY . NO SIGNS OF ANY ACUTE DISTRESS NOTED.
[2017-01-08] MEDS ORDERED: clonazePAM 1 MG TABLET ONE (22:37)
[2017-01-08] MEDS ORDERED: SENNOSIDES 8.6 MG TABLET ONE (22:42)
[2017-01-08] MEDS ORDERED: AZITHROMYCIN 250 MG TABLET ONE (22:45)
[2017-01-08] MEDS: SENNOSIDES 8.6 MG TABLET PO SCH (22:47)
--- NOTE | 2017-01-08 22:50 | NUR ---
AIR CONDITIONING EQUIPMENT MECHANIC/NOTES PT AWAKE AND ASKING FOR HIS ANXIETY MEDS. KLONOPIN GIVEN ORDERED. SAFETY PRECAUTION APPLIED.KEPT HIM WARM AND COMFORTABLE AT ALL TIMES. WILL CONTINUE TO MONITOR.
[2017-01-09] MEDS ORDERED: LIDOCAINE 2% JEL UROJET 10 ML MM ONE (00:30)
[2017-01-09] MEDS ORDERED: ZOLPIDEM TARTRATE 5 MG TABLET PO PRN (00:30)
[2017-01-09] MEDS: LINEZOLID RTU BAG 600 MG in PREMIX 1 EA IV SCH ×3 (00:50→22:13)
[2017-01-09] MEDS ORDERED: ZOLPIDEM TARTRATE 5 MG TABLET ONE (00:54)
[2017-01-09] MEDS: ZOLPIDEM TARTRATE 5 MG TABLET PO PRN ×2 (00:57→22:27)
--- NOTE | 2017-01-09 00:57 | NUR ---
MS VP SECURITY NOTES PATENT STILL AWAKE AND WATCHING TV SITTING ON HIS WHEELCHAIR AND HE ASKED FOR HIS SLEEPING MEDICATION , I TOLD HIM HE NEEDS TO GO BACK TO HIS BED BEFORE I GIVE IT TO HIM FOR HIS OWN SAFETY AND PATIENT STATED "OK BUT YOU WILL GIVE ME ANOTHER MILK AND CRACKERS. STARTED TO INFUSE IVF AGAIN AND AMBIEN ALSO GIVEN ORDERED. MILK AND CRACKERS ALSO SERVED . EDUCATE PT REGARDING SIDE EFFECT OF AMBIEN THEN PATIENT STATE'S BULL SHIT I KNOW THAT ALREADY LEAVE ME ALONE ". BED ALARM SET AND WILL CONTINUE TO MONITOR. PLACE CALL LIGHT AT REACH.
--- NOTE | 2017-01-09 01:57 | NUR ---
MEDICAL CHEMIST/NOTES PT RESTING AT THIS TIME WITHOUT ANY ACUTE DISTRESS NOTED. IVF NS STILL INFUSING. WILL CONTINUE TO MONITOR.
[2017-01-09] MEDS: HYDROMORPHONE INJ 2 MG/ML DISP.SYRIN IV PRN ×5 (03:06→22:27)
--- NOTE | 2017-01-09 03:07 | NUR ---
TABLE GAMES FLOOR SUPERVISOR/NOTES PT WOKE UP AND SCREAMING AND SAYING 'WHERE IS THE KEN NURSE, I NEEDS MY PAIN MEDS, I WENT TO HIS ROOM AND TALKED TO HIM IN A NICE WAY AND HE STATES PAIN LIKE 10/10 ON HIS LEFT KNEE. DILAUDID 1 MG ADMINISTERED BY ANOTHER NURSE ASTRID/RN TOMAS IVP FOR PT COMFORT. UP HIS LEFT KNEE ON PILLOWS KEPT HIM WARM AND COMFORTABLE AT ALL TIMES. EDUCATE HIM REGARDING HIS MEDICATION. WILL CONTINUE TO MONITOR PLACE CALL LIGHT AT REACH.
--- NOTE | 2017-01-09 03:36 | NUR ---
ELECTRICAL HELPER/NOTES PT CALMED AT THIS TIME AFTER PAIN MEDS GIVEN , IVF STILL INFUSING. WILL CONTINUE TO MONITOR.
--- NOTE | 2017-01-09 05:30 | NUR ---
ASSISTANT SALES DIRECTOR/NOTES PT WOKE UP AND STARTED SCREAMING, ASKING FOR HIS PAIN SHOT , I TOLD HIM IS NOT DUE YET BUT I OFFERED OTHER PAIN MED LIKE OXY-IR. THEN HE SAID OK. HE ALSO ASKED FOR ANOTHER MILK AND CRACKER AT THE SAME TIME. I TOLD HIM OK I WILL GET IT BUT BE PATIENCE ALSO, BUT INSTEAD HE ANSWERED ME BAD WORDS AND TOMAS HIS EMPTY URINAL BOTTLE ON THE FLOOR. CALLED THE CHARGE NURSE BUT PATIENT STARTED SAYING BAD WORDS LIKE "FUCK YOU " . WE TRIED TO BE CALMED AND GET HIS PAIN MEDICATION.
[2017-01-09] MEDS: CEFEPIME 2 GM in IV D5W 100 ML IV SCH ×3 (05:52→21:06)
[2017-01-09] MEDS ORDERED: oxyCODONE IR immediate release 5 MG CAPSULE ONE (06:11)
--- NOTE | 2017-01-09 06:30 | NUR ---
DIETARY WORKER/NOTES I STARTED TO SCAN HIS MEDICATION AND VERIFIED HIS NAME AND DATE AT THE SAME THEN PATIENT STATED " LET ME CHECKED THE LABEL , I GAVE IT TO HIM AND HE STATES I DON'T LIKE IT, EVEN I EXPLAINED TO HIM THE PURPOSE OF THIS MEDICATION , HE STARTED TO QUIET AND SAYING I'LL JUST WAIT FOR MY PAIN SHOT. CHARGE NURSE AWARE. WILL CONTINUE TO MONITOR.
--- NOTE | 2017-01-09 07:30 | NUR ---
TECHNICAL ASSOCIATE/CLOSING NOTES PT AWAKE AND ALERT IVF STILL INFUSING AND HE'S AWARE THAT I ENDORSE TO AM NURSE ROBYN WILL ADMINISTERED HIS PAIN MEDICATION . NO SIGNS OF ANY ACUTE DISTRESS NOTED. ENDORSE TO AM NURSE FOR CONTINUITY OF CARE.
--- NOTE | 2017-01-09 07:58 | NUR ---
RN OPENING NOTES RECEIVED PATIENT IN BED, AWAKE, HOB ELEVATED, NO SOB OR DISTRESS NOTED. A/O X4 VERBALLY RESPONSIVE AND ABLE TO MAKE NEEDS KNOWN. IV INTACT AND PATENT. KEEP PATIENT CLEAN AND COMFORTABLE IN BED, CALL LIGHT WITHIN PATIENT REACH, WILL CONTINUE TO MONITOR ACCORDINGLY.
[2017-01-09 08:00] VITALS: BP 112/62
[2017-01-09] MEDS: ZINC SULFATE 220 MG CAPSULE PO SCH (08:46)
[2017-01-09] MEDS: DOCUSATE SODIUM 100 MG CAPSULE PO SCH ×2 (08:46→18:18)
[2017-01-09] MEDS: PANTOPRAZOLE 40 MG TABLET.DR PO SCH (08:46)
[2017-01-09] MEDS: FOLIC ACID 1 MG TABLET PO SCH (08:46)
[2017-01-09] MEDS: GABAPENTIN 300 MG CAPSULE PO SCH ×3 (08:46→18:17)
[2017-01-09] MEDS: NICOTINE PATCH (21MG) 21 MG PATCH.TD24 TD SCH (08:47)
[2017-01-09] MEDS ORDERED: TRIMETHOPRIM PO SCH (09:00)
[2017-01-09] MEDS ORDERED: hydrOXYzine PAMOATE 50 MG CAPSULE PO SCH (09:00)
[2017-01-09] MEDS ORDERED: Medication Not On Formulary EA (Dolutegravir Sodium (Tivicay) 50 MG) PO SCH (09:00)
[2017-01-09] MEDS ORDERED: Medication Not On Formulary EA (Emtricitabine/Tenofov Alafenam (Descovy 200-25 mg Tablet PO SCH (09:00)
[2017-01-09] MEDS ORDERED: HYDROMORPHONE 1 MG/1 ML DISP.SYRIN IV STA (10:18)
--- NOTE | 2017-01-09 10:30 | NUR ---
RN NOTES MIDLINE WAS INSERTED BY DR. DOLLY CARRINGTON.
[2017-01-09 10:33] LABS: BASOPHILS % (AUTO) 0.3 % (0.0-2.0); EOSINOPHILS # (AUTO) 0.1 /CMM (0.0-0.7); EOSINOPHILS % (AUTO) 4.8 % (0.0-6.0); HEMATOCRIT 26 % (39-51); HEMOGLOBIN 8.6 g/dL (13.5-17.5); LYMPHOCYTES # (AUTO) 0.3 /CMM (0.8-4.8); LYMPHOCYTES % (AUTO) 11.4 % (20.0-44.0); MEAN CORPUSCULAR HEMOGLOBIN 27 PG (26.0-33.0); MEAN CORPUSCULAR HGB CONC 33 g/dl (31.0-36.0); MEAN CORPUSCULAR VOLUME 82 fL (80-96); MONOCYTES # (AUTO) 0.2 /CMM (0.1-1.30); MONOCYTES % (AUTO) 9.3 % (2.0-12.0); NEUTROPHILS # (AUTO) 1.8 /CMM (1.8-8.9); NEUTROPHILS % (AUTO) 74.2 % (43.0-81.0); PLATELET COUNT (AUTO) 185 /CMM (150-450); RDW COEFFICIENT OF VARIATION 16.8 (11.5-15.0); RED BLOOD CELL COUNT(AUTO) 3.19 MIL/uL (4.5-6.0); WHITE BLOOD COUNT (AUTO) 2.5 K/uL (4.3-11.0)
[2017-01-09 10:52] LABS: BAND % (MANUAL) 2 % (0.0-5.0); EOSINOPHILS % (MANUAL) 3 % (0-4); LYMPHOCYTES % (MANUAL) 13 % (16-48); MONOCYTES % (MANUAL) 8 % (0-11.0); NEUTROPHILS % (MANUAL) 74 (42-76)
[2017-01-09 10:58] LABS: CALCIUM, SERUM 7.4 mg/dL (8.5-10.1); CREATININE 0.7 mg/dL (0.6-1.3); MAGNESIUM 1.7 mg/dL (1.8-2.4); PHOSPHORUS 2.4 mg/dL (2.5-4.9); POTASSIUM 3.8 mmol/L (3.5-5.1)
[2017-01-09 11:09] LABS: THYROID STIMULATING HORMONE 3.016 uIU/mL (0.358-3.74)
[2017-01-09] MEDS: clonazePAM 1 MG TABLET PO SCH ×2 (12:06→21:15)
[2017-01-09] MEDS: ACYCLOVIR 800 MG TABLET PO SCH (12:12)
[2017-01-09] MEDS: ATOVAQUONE SUSP 750 MG/5 ML PACKET PO SCH (14:49)
[2017-01-09] MEDS: BUPROPION XL 150 MG TAB.ER.24 PO SCH (14:50)
[2017-01-09] MEDS: oxyCODONE IR immediate release 5 MG CAPSULE PO PRN ×2 (14:52→21:15)
[2017-01-09 16:00] VITALS: BP 130/60
[2017-01-09] MEDS ORDERED: K PHOS NEUTRAL 250 MG TABLET PO ONE ×2 (17:00→19:00)
[2017-01-09] MEDS: hydrOXYzine PAMOATE 25 MG CAPSULE PO SCH (18:16)
[2017-01-09] MEDS: AZITHROMYCIN 250 MG TABLET PO SCH (18:17)
[2017-01-09 20:00] VITALS: BP 97/65
--- NOTE | 2017-01-09 20:03 | NUR ---
RN NOTES ALL NEEDS PROVIDED, ATTENDED, AND ANTICIPATED. KEPT PATIENT CLEAN AND COMFORTABLE IN BED. CALL LIGHT WITHIN PATIENT REACH, WILL CONTINUE TO MONITOR ACCORDINGLY. ENDORSED TO NEXT SHIFT RN TO CONTINUE CARE.
[2017-01-09] MEDS: SENNOSIDES 8.6 MG TABLET PO SCH (21:16)
--- NOTE | 2017-01-09 21:20 | NUR ---
PT COMPLAIN OF LEFT KNEE PAIN IN A SCALE OF 9/10. OXYCODONE 10MG PO GIVEN ORDERED. WILL CONTINUE TO MONITOR AND REASSESS.
--- NOTE | 2017-01-09 22:30 | NUR ---
PT COMPLAIN OF LEFT KNEE PAIN IN A SCALE OF 10/10. DILAUDID 1MG IV GIVEN ORDERED. WILL CONTINUE TO MONITOR AND REASSESS.
[2017-01-09 22:56] VITALS: BP 97/65
--- NOTE | 2017-01-09 23:45 | NUR ---
RN NOTES REPORT RECEIVED FROM KIKO BASSETT FOR CONTINUITY OF CARE.
[2017-01-09] MEDS: IV NS 0.9% 1,000 ML IV PRN (23:49)
[2017-01-10] MEDS: HYDROMORPHONE INJ 2 MG/ML DISP.SYRIN IV PRN ×5 (02:36→22:29)
[2017-01-10] MEDS: clonazePAM 1 MG TABLET PO SCH ×3 (04:39→20:42)
[2017-01-10] MEDS: CEFEPIME 2 GM in IV D5W 100 ML IV SCH (04:39)
--- NOTE | 2017-01-10 06:22 | NUR ---
RN NOTES PATIENT AWAKE, AO X 3, ABLE TO MAKE NEEDS KNOWN. NO ACUTE DISTRESS NOTED. IV SITES PATENT, INTACT; FLUSHED. DUE MEDS GIVEN WITH NO ASE NOTED. NEEDS ATTENDED. SAFETY PRECAUTIONS AND COMFORT MEASURES IN PLACE. WILL GIVE REPORT TO DAY SHIFT FOR CONTINUITY OF CARE.
--- NOTE | 2017-01-10 07:32 | NUR ---
RN OPENING NOTES RECEIVED PATIENT IN BED, AWAKE, HOB ELEVATED, NO SOB OR DISTRESS NOTED. A/O X3-4 VERBALLY RESPONSIVE AND ABLE TO MAKE NEEDS KNOWN. IV INTACT AND PATENT. KEEP PATIENT CLEAN AND COMFORTABLE IN BED, CALL LIGHT WITHIN PATIENT REACH, WILL CONTINUE TO MONITOR ACCORDINGLY.
[2017-01-10 08:00] VITALS: BP 100/67
[2017-01-10 08:12] LABS: BASOPHILS % (AUTO) 0.1 % (0.0-2.0); EOSINOPHILS # (AUTO) 0.2 /CMM (0.0-0.7); EOSINOPHILS % (AUTO) 8.9 % (0.0-6.0); HEMATOCRIT 27 % (39-51); HEMOGLOBIN 8.7 g/dL (13.5-17.5); LYMPHOCYTES # (AUTO) 0.3 /CMM (0.8-4.8); LYMPHOCYTES % (AUTO) 12.7 % (20.0-44.0); MEAN CORPUSCULAR HEMOGLOBIN 27 PG (26.0-33.0); MEAN CORPUSCULAR HGB CONC 33 g/dl (31.0-36.0); MEAN CORPUSCULAR VOLUME 82 fL (80-96); MONOCYTES # (AUTO) 0.2 /CMM (0.1-1.30); MONOCYTES % (AUTO) 9.6 % (2.0-12.0); NEUTROPHILS # (AUTO) 1.5 /CMM (1.8-8.9); NEUTROPHILS % (AUTO) 68.7 % (43.0-81.0); PLATELET COUNT (AUTO) 208 /CMM (150-450); RDW COEFFICIENT OF VARIATION 16.7 (11.5-15.0); RED BLOOD CELL COUNT(AUTO) 3.24 MIL/uL (4.5-6.0); WHITE BLOOD COUNT (AUTO) 2.1 K/uL (4.3-11.0)
[2017-01-10 08:34] LABS: CALCIUM, SERUM 7.5 mg/dL (8.5-10.1); CREATININE 0.6 mg/dL (0.6-1.3); MAGNESIUM 1.7 mg/dL (1.8-2.4); PHOSPHORUS 3.1 mg/dL (2.5-4.9); POTASSIUM 3.9 mmol/L (3.5-5.1)
[2017-01-10] MEDS: BUPROPION XL 150 MG TAB.ER.24 PO SCH (09:00)
[2017-01-10 09:05] LABS: BAND % (MANUAL) 5 % (0.0-5.0); EOSINOPHILS % (MANUAL) 3 % (0-4); LYMPHOCYTES % (MANUAL) 15 % (16-48); MONOCYTES % (MANUAL) 10 % (0-11.0); NEUTROPHILS % (MANUAL) 67 (42-76)
[2017-01-10] MEDS: ATOVAQUONE SUSP 750 MG/5 ML PACKET PO SCH (10:22)
[2017-01-10] MEDS: GABAPENTIN 300 MG CAPSULE PO SCH ×3 (10:22→17:56)
[2017-01-10] MEDS: ACYCLOVIR 800 MG TABLET PO SCH (10:22)
[2017-01-10] MEDS: PANTOPRAZOLE 40 MG TABLET.DR PO SCH (10:22)
[2017-01-10] MEDS: NICOTINE PATCH (21MG) 21 MG PATCH.TD24 TD SCH (10:22)
[2017-01-10] MEDS: FOLIC ACID 1 MG TABLET PO SCH (10:22)
[2017-01-10] MEDS: hydrOXYzine PAMOATE 25 MG CAPSULE PO SCH ×2 (10:22→17:56)
[2017-01-10] MEDS: ZINC SULFATE 220 MG CAPSULE PO SCH (10:23)
[2017-01-10] MEDS: DOCUSATE SODIUM 100 MG CAPSULE PO SCH ×2 (10:23→17:56)
[2017-01-10] MEDS ORDERED: EMTRICITABINE/TENOFOVIR 1 TAB PO SCH (10:30)
[2017-01-10] MEDS: RITONAVIR 100 MG CAPSULE PO SCH ×2 (10:30→17:00)
[2017-01-10] MEDS: TENOFOVIR DISOPROXIL FUMARATE 300 MG TABLET PO SCH (11:00)
[2017-01-10] MEDS: EMTRICITABINE 200 MG CAPSULE PO SCH (11:00)
--- NOTE | 2017-01-10 12:50 | NUR ---
RN NOTES PATIENT REFUSED HIV MEDICATIONS.
[2017-01-10] MEDS: CLINDAMYCIN 900 MG in IV D5W 50 ML IV SCH ×2 (12:59→20:32)
[2017-01-10] MEDS: CEFAZOLIN 2 GM in IV D5W 50 ML IV SCH ×2 (13:40→21:18)
--- NOTE | 2017-01-10 14:25 | NUR ---
RN NOTES ARCHIE CARRINGTON INFORMED ME THAT PATIENT MAY BE DISCHARGE TOMORROW MORNING.
[2017-01-10] MEDS: Magnesium 1GM/D5W 100ML PREMIX 100 ML IV SCH ×2 (14:33→15:14)
--- NOTE | 2017-01-10 15:19 | NUR ---
derrick worker met with patient at bedside along with registered nurse hh case manager Lyla and informed patient that he cannot return to [facility]. derrick worker asked patient if he would be interested in going to a sober living facility. Patient stated that he was at [facility] and wanted to return. derrick worker spoke to Renato from [facility] ([phone]/ [phone]) who stated that he would get in touch with the patient's registered nurse hh case manager Jaime (Housing Navigator) to see if he could reconnect the patient with services. Renato stated that he would follow-up with high school social studies teacher. derrick worker attempted to contact patient's high school social studies teacher from [facility] BETTY Haynes ([phone]) however, she was unavailable. derrick worker left a detailed message with her contact information. derrick worker will follow-up.
[2017-01-10 16:00] VITALS: BP 90/52
--- NOTE | 2017-01-10 16:01 | NUR ---
bone worker spoke to BETTY Haynes ([phone]) social insurance administrator from [facility] who stated that patient has burned all bridges with [facility] as she stated that he was caught "dealing" and were not going to accept him back. Per Macy, pt. has been in hospitals multiple times and leaves AMA. Per Macy, they have tried everything to help him. Macy stated that he could be discharged to another intermediate. bone worker will follow-up with patient.
--- NOTE | 2017-01-10 17:07 | NUR ---
apartment maintenance worker informed caser up Lyla that there is no shelters open on the weekends. modeling agency manager Lyla stated that she would follow-up with [facility] since it is there patient and they should be able to take him back.
[2017-01-10 20:06] VITALS: BP 90/64
[2017-01-10] MEDS: SENNOSIDES 8.6 MG TABLET PO SCH (20:42)
[2017-01-10] MEDS: oxyCODONE IR immediate release 5 MG CAPSULE PO PRN (20:42)
[2017-01-10 20:56] VITALS: BP 90/64
--- NOTE | 2017-01-10 21:29 | NUR ---
RN OPENING NOTES RECEIVED PATIENT IN BED, AWAKE, NO SOB OR DISTRESS NOTED. A/O X3-4 VERBALLY RESPONSIVE, IV INTACT AND PATENT. NO INFILTRATION/REDNESS NOTED. KEEP PATIENT CLEAN AND COMFORTABLE IN BED. CALL LIGHT WITHIN PATIENT REACH, WILL CONTINUE TO MONITOR ACCORDINGLY.
[2017-01-10] MEDS: ZOLPIDEM TARTRATE 5 MG TABLET PO PRN (21:33)
[2017-01-11] MEDS: IV NS 0.9% 1,000 ML IV PRN ×2 (00:58→17:47)
[2017-01-11] MEDS: HYDROMORPHONE INJ 2 MG/ML DISP.SYRIN IV PRN ×6 (02:45→23:58)
[2017-01-11] MEDS: CLINDAMYCIN 900 MG in IV D5W 50 ML IV SCH ×3 (04:19→20:15)
[2017-01-11] MEDS: clonazePAM 1 MG TABLET PO SCH ×3 (04:19→20:15)
[2017-01-11] MEDS: CEFAZOLIN 2 GM in IV D5W 50 ML IV SCH ×3 (05:02→21:51)
--- NOTE | 2017-01-11 06:06 | NUR ---
RN NOTES PATIENT AWAKE IN BED. AO X 3. NO SOB. RESPIRATION EVEN AND UNLABORED. NO ACUTE DISTRESS NOTED. IV SITES PATENT AND INTACT. NO REDNESS/INFILTRATION NOTED. ALL NEEDS ATTENDED AND ANTICIPATED. SAFETY PRECAUTIONS AND COMFORT MEASURES IMPLEMENTED. WILL GIVE REPORT TO NEXT SHIFT NURSE FOR SUNNY.
--- NOTE | 2017-01-11 07:11 | NUR ---
RN MS OPENING NOTES RECEIVED PATIENT IN BED, ASLEEP, HOB ELEVATED, NO SOB OR DISTRESS NOTED. A/O X4 VERBALLY RESPONSIVE AND ABLE TO MAKE NEEDS KNOWN. MIDLINE INTACT AND PATENT. KEEP PATIENT CLEAN AND COMFORTABLE IN BED, CALL LIGHT WITHIN PATIENT REACH, WILL CONTINUE TO MONITOR ACCORDINGLY.
[2017-01-11 08:00] VITALS: BP 96/65
[2017-01-11] MEDS: NICOTINE PATCH (21MG) 21 MG PATCH.TD24 TD SCH (08:21)
[2017-01-11] MEDS: ACYCLOVIR 800 MG TABLET PO SCH (08:22)
[2017-01-11] MEDS: GABAPENTIN 300 MG CAPSULE PO SCH ×3 (08:22→17:00)
[2017-01-11] MEDS: DOCUSATE SODIUM 100 MG CAPSULE PO SCH ×2 (08:22→17:00)
[2017-01-11] MEDS: FOLIC ACID 1 MG TABLET PO SCH (08:22)
[2017-01-11] MEDS: ATOVAQUONE SUSP 750 MG/5 ML PACKET PO SCH (08:22)
[2017-01-11] MEDS: hydrOXYzine PAMOATE 25 MG CAPSULE PO SCH ×2 (08:22→17:00)
[2017-01-11] MEDS: ZINC SULFATE 220 MG CAPSULE PO SCH (08:23)
[2017-01-11] MEDS: PANTOPRAZOLE 40 MG TABLET.DR PO SCH (08:23)
[2017-01-11] MEDS: TENOFOVIR DISOPROXIL FUMARATE 300 MG TABLET PO SCH (08:23)
[2017-01-11] MEDS: EMTRICITABINE 200 MG CAPSULE PO SCH (08:23)
[2017-01-11] MEDS: BUPROPION XL 150 MG TAB.ER.24 PO SCH (08:23)
[2017-01-11] MEDS: oxyCODONE IR immediate release 5 MG CAPSULE PO PRN ×2 (09:05→18:30)
--- NOTE | 2017-01-11 10:25 | NUR ---
RN NOTES PATIENT IS LYING DOWN IN BED WITH NO SOB OR DISTRESS NOTED.
[2017-01-11] MEDS: RALTEGRAVIR POTASSIUM 400 MG TABLET PO SCH ×2 (11:06→17:00)
--- NOTE | 2017-01-11 14:25 | NUR ---
RN NOTES PATIENT WENT DOWNSTAIR TO SMOKE ON STABLE CONDITION WITH NO SOB OR DISTRESS NOTED.
[2017-01-11 15:54] LABS: BASOPHILS % (AUTO) 0.7 % (0.0-2.0); EOSINOPHILS # (AUTO) 0.2 /CMM (0.0-0.7); EOSINOPHILS % (AUTO) 10.8 % (0.0-6.0); HEMATOCRIT 30 % (39-51); HEMOGLOBIN 9.8 g/dL (13.5-17.5); LYMPHOCYTES # (AUTO) 0.2 /CMM (0.8-4.8); LYMPHOCYTES % (AUTO) 13.2 % (20.0-44.0); MEAN CORPUSCULAR HEMOGLOBIN 27 PG (26.0-33.0); MEAN CORPUSCULAR HGB CONC 32 g/dl (31.0-36.0); MEAN CORPUSCULAR VOLUME 83 fL (80-96); MONOCYTES # (AUTO) 0.2 /CMM (0.1-1.30); MONOCYTES % (AUTO) 8.9 % (2.0-12.0); NEUTROPHILS # (AUTO) 1.2 /CMM (1.8-8.9); NEUTROPHILS % (AUTO) 66.4 % (43.0-81.0); PLATELET COUNT (AUTO) 220 /CMM (150-450); RDW COEFFICIENT OF VARIATION 16.4 (11.5-15.0); RED BLOOD CELL COUNT(AUTO) 3.67 MIL/uL (4.5-6.0)
[2017-01-11 15:59] LABS: WHITE BLOOD COUNT (AUTO) 1.9 K/uL (4.3-11.0)
[2017-01-11 16:00] VITALS: BP 90/55
[2017-01-11 16:12] LABS: CALCIUM, SERUM 7.6 mg/dL (8.5-10.1); CREATININE 0.7 mg/dL (0.6-1.3); MAGNESIUM 1.8 mg/dL (1.8-2.4); PHOSPHORUS 3.6 mg/dL (2.5-4.9); POTASSIUM 4.4 mmol/L (3.5-5.1)
[2017-01-11 16:41] LABS: BAND % (MANUAL) 7 % (0.0-5.0); EOSINOPHILS % (MANUAL) 9 % (0-4); LYMPHOCYTES % (MANUAL) 14 % (16-48); MONOCYTES % (MANUAL) 3 % (0-11.0); NEUTROPHILS % (MANUAL) 67 (42-76)
[2017-01-11 20:00] VITALS: BP 101/59
[2017-01-11] MEDS: SENNOSIDES 8.6 MG TABLET PO SCH (21:53)
[2017-01-12] MEDS: oxyCODONE IR immediate release 5 MG CAPSULE PO PRN ×2 (02:53→11:16)
[2017-01-12] MEDS: HYDROMORPHONE INJ 2 MG/ML DISP.SYRIN IV PRN ×3 (04:12→12:57)
[2017-01-12] MEDS: CLINDAMYCIN 900 MG in IV D5W 50 ML IV SCH ×3 (04:14→20:19)
[2017-01-12] MEDS: clonazePAM 1 MG TABLET PO SCH ×3 (04:14→20:20)
[2017-01-12] MEDS: CEFAZOLIN 2 GM in IV D5W 50 ML IV SCH ×3 (05:25→21:25)
--- NOTE | 2017-01-12 06:34 | NUR ---
MS RN NOTES AWAKE & RESPONSIVE. NOT IN ANY DISTRESS. NO SOB NOTED. DENIES ANY PAIN OR DISCOMFORT AT THIS TIME. WITH IVF INFUSING WELL.AM CARE DONE. MONITORED ACCORDINGLY. CALL LIGHT WITHIN REACH. BED IN LOWEST POSITION. SR UP X 2 FOR SAFETY. WILL ENDORSE TO NEXT SHIFT.
--- NOTE | 2017-01-12 07:35 | NUR ---
RN MS NOTES PATIENT ASLEEP BUT EASILY AROUSABLE, COMPLAINTS OF PAIN BUT TOLERABLE AT THIS TIME, NO DISTRESS NOTED, BREATHING EVEN AND UNLABORED, ALL NEEDS ATTENDED, SAFETY MEASURES IN PLACED, CALL LIGHT WITHIN REACH, WILL CONTINUE TO MONITOR.
[2017-01-12 08:00] VITALS: BP 97/53
[2017-01-12] MEDS: GABAPENTIN 300 MG CAPSULE PO SCH ×3 (08:26→16:21)
[2017-01-12] MEDS: ACYCLOVIR 800 MG TABLET PO SCH (08:26)
[2017-01-12] MEDS: DOCUSATE SODIUM 100 MG CAPSULE PO SCH ×2 (08:26→16:21)
[2017-01-12] MEDS: BUPROPION XL 150 MG TAB.ER.24 PO SCH (08:26)
[2017-01-12] MEDS: PANTOPRAZOLE 40 MG TABLET.DR PO SCH (08:26)
[2017-01-12] MEDS: FOLIC ACID 1 MG TABLET PO SCH (08:26)
[2017-01-12] MEDS: NICOTINE PATCH (21MG) 21 MG PATCH.TD24 TD SCH (08:27)
[2017-01-12] MEDS: EMTRICITABINE 200 MG CAPSULE PO SCH (08:27)
[2017-01-12] MEDS: RALTEGRAVIR POTASSIUM 400 MG TABLET PO SCH ×2 (08:27→16:20)
[2017-01-12] MEDS: ATOVAQUONE SUSP 750 MG/5 ML PACKET PO SCH (08:27)
[2017-01-12] MEDS: ZINC SULFATE 220 MG CAPSULE PO SCH (08:27)
[2017-01-12] MEDS: hydrOXYzine PAMOATE 25 MG CAPSULE PO SCH ×2 (08:27→16:21)
[2017-01-12] MEDS: TENOFOVIR DISOPROXIL FUMARATE 300 MG TABLET PO SCH (08:28)
[2017-01-12 10:21] LABS: BASOPHILS % (AUTO) 0.1 % (0.0-2.0); EOSINOPHILS # (AUTO) 0.2 /CMM (0.0-0.7); EOSINOPHILS % (AUTO) 10.2 % (0.0-6.0); HEMATOCRIT 25 % (39-51); LYMPHOCYTES # (AUTO) 0.2 /CMM (0.8-4.8); LYMPHOCYTES % (AUTO) 11.4 % (20.0-44.0); MEAN CORPUSCULAR HEMOGLOBIN 26 PG (26.0-33.0); MEAN CORPUSCULAR HGB CONC 32 g/dl (31.0-36.0); MEAN CORPUSCULAR VOLUME 82 fL (80-96); MONOCYTES # (AUTO) 0.2 /CMM (0.1-1.30); MONOCYTES % (AUTO) 11.7 % (2.0-12.0); NEUTROPHILS # (AUTO) 1.4 /CMM (1.8-8.9); NEUTROPHILS % (AUTO) 66.6 % (43.0-81.0); PLATELET COUNT (AUTO) 211 /CMM (150-450); RDW COEFFICIENT OF VARIATION 16.5 (11.5-15.0); RED BLOOD CELL COUNT(AUTO) 3.03 MIL/uL (4.5-6.0)
[2017-01-12 10:42] LABS: CALCIUM, SERUM 6.9 mg/dL (8.5-10.1); CREATININE 0.7 mg/dL (0.6-1.3); MAGNESIUM 1.7 mg/dL (1.8-2.4); PHOSPHORUS 3.7 mg/dL (2.5-4.9)
[2017-01-12 10:52] LABS: BAND % (MANUAL) 12 % (0.0-5.0); EOSINOPHILS % (MANUAL) 6 % (0-4); LYMPHOCYTES % (MANUAL) 11 % (16-48); MONOCYTES % (MANUAL) 8 % (0-11.0); NEUTROPHILS % (MANUAL) 63 (42-76)
[2017-01-12 10:59] VITALS: BP 97/53
[2017-01-12] MEDS: Magnesium 1GM/D5W 100ML PREMIX 100 ML IV SCH ×2 (13:02→14:06)
[2017-01-12] MEDS: FLUOCINONIDE 0.05% CREAM 60 GM TUBE TP SCH ×2 (14:00→18:37)
[2017-01-12] MEDS: MORPHINE SULFATE SR 30 MG TABLET.SA PO SCH ×2 (14:56→23:10)
--- NOTE | 2017-01-12 15:15 | NUR ---
RN MS NOTES PATIENT SEEN BY DR. CARRINGTON AND RECEIVED NEW ORDERS, ORDERS NOTED AND CARRIED OUT. PATIENT AWARE AND APPRECIATIVE.
[2017-01-12 16:00] VITALS: BP 96/61
[2017-01-12] MEDS: HYDROMORPHONE 1 MG/1 ML DISP.SYRIN IV PRN ×2 (16:22→20:35)
--- NOTE | 2017-01-12 19:21 | NUR ---
RN MS NOTES PATIENT ALERT AND ORIENTED, ABLE TO TOLERATE PAIN AT THIS TIME, ALL DUE MEDS GIVEN ORDERED, NO SOB NOR DISTRESS NOTED, PATIENT SMOKE A FEW TIMES ACCOMPANIED BY STAFF, ALL NEEDS ATTENDED, CALL LIGHT WITHIN REACH, SAFETY MEASURES IN PLACED, WILL ENDORSE TO GLUCOSE AND SYRUP WEIGHER FOR SUNNY.
--- NOTE | 2017-01-12 19:25 | NUR ---
RN OPEN NOTES RECEIVED PATIENT AWAKE IN BED. A/O X4. NO SIGNS OF DISTRESS OR DISCOMFORT. BREATHING EVEN AND UNLABORED. IV ACCESS IN SILVIO MIDLINE WITH NS INFUSING, NO SIGNS OF REDNESS OR INFILTRATION. BED IN LOW LOCKED POSITION WITH SIDE RAILS X2. CALL LIGHT WITHIN REACH. WILL CONTINUE TO MONITOR.
[2017-01-12 20:00] VITALS: BP 92/57
[2017-01-12] MEDS: IV NS 0.9% 1,000 ML IV PRN (20:19)
[2017-01-12] MEDS: SENNOSIDES 8.6 MG TABLET PO SCH (21:25)
[2017-01-13] MEDS: HYDROMORPHONE 1 MG/1 ML DISP.SYRIN IV PRN ×7 (02:11→23:01)
[2017-01-13] MEDS: CLINDAMYCIN 900 MG in IV D5W 50 ML IV SCH ×2 (04:21→12:46)
[2017-01-13] MEDS: clonazePAM 1 MG TABLET PO SCH ×3 (04:21→20:37)
[2017-01-13] MEDS: CEFAZOLIN 2 GM in IV D5W 50 ML IV SCH ×3 (05:54→20:36)
[2017-01-13 07:17] LABS: BASOPHILS % (AUTO) 0.3 % (0.0-2.0); EOSINOPHILS # (AUTO) 0.3 /CMM (0.0-0.7); HEMATOCRIT 25 % (39-51); HEMOGLOBIN 8.3 g/dL (13.5-17.5); LYMPHOCYTES # (AUTO) 0.3 /CMM (0.8-4.8); LYMPHOCYTES % (AUTO) 14.5 % (20.0-44.0); MEAN CORPUSCULAR HEMOGLOBIN 27 PG (26.0-33.0); MEAN CORPUSCULAR HGB CONC 33 g/dl (31.0-36.0); MEAN CORPUSCULAR VOLUME 83 fL (80-96); MONOCYTES # (AUTO) 0.2 /CMM (0.1-1.30); NEUTROPHILS # (AUTO) 1.3 /CMM (1.8-8.9); NEUTROPHILS % (AUTO) 62.2 % (43.0-81.0); PLATELET COUNT (AUTO) 206 /CMM (150-450); RDW COEFFICIENT OF VARIATION 16.6 (11.5-15.0); RED BLOOD CELL COUNT(AUTO) 3.07 MIL/uL (4.5-6.0); WHITE BLOOD COUNT (AUTO) 2.1 K/uL (4.3-11.0)
--- NOTE | 2017-01-13 07:25 | NUR ---
RECEIVED PT IN BED, AWAKE AND ALERT. PT SHOWS NO SIGNS OF DISTRESS AND HAS NO COMPLAINTS OF PAIN. SILVIO MIDLINE IS RUNNING NS AT 75ML/HR. SAFETY MEASURES ARE IN PLACE. WILL CONTINUE TO MONITOR.
--- NOTE | 2017-01-13 07:28 | NUR ---
RN CLOSING NOTES PATIENT AWAKE IN BED. A/O X4. NO SIGNS OF DISTRESS OR DISCOMFORT. BREATHING EVEN AND UNLABORED. IV ACCESS IN SILVIO MIDLINE WITH NS INFUSING, NO SIGNS OF REDNESS OR INFILTRATION. ALL NEEDS MET. NO SIGNIFICANT CHANGES THROUGH THE NIGHT. BED IN LOW LOCKED POSITION WITH SIDE RAILS X2. CALL LIGHT WITHIN REACH. ENDORSED TO AM SHIFT FOR SUNNY.
[2017-01-13 07:34] LABS: CALCIUM, SERUM 7.1 mg/dL (8.5-10.1); CREATININE 0.7 mg/dL (0.6-1.3); MAGNESIUM 2.1 mg/dL (1.8-2.4); PHOSPHORUS 3.5 mg/dL (2.5-4.9); POTASSIUM 4.1 mmol/L (3.5-5.1)
[2017-01-13 07:44] LABS: BAND % (MANUAL) 4 % (0.0-5.0); EOSINOPHILS % (MANUAL) 13 % (0-4); LYMPHOCYTES % (MANUAL) 15 % (16-48); MONOCYTES % (MANUAL) 13 % (0-11.0); NEUTROPHILS % (MANUAL) 55 (42-76)
[2017-01-13 08:00] VITALS: BP 98/60
[2017-01-13] MEDS: EMTRICITABINE 200 MG CAPSULE PO SCH (08:30)
[2017-01-13] MEDS: FOLIC ACID 1 MG TABLET PO SCH (08:30)
[2017-01-13] MEDS: DOCUSATE SODIUM 100 MG CAPSULE PO SCH ×2 (08:30→16:00)
[2017-01-13] MEDS: RALTEGRAVIR POTASSIUM 400 MG TABLET PO SCH ×2 (08:30→16:00)
[2017-01-13] MEDS: MORPHINE SULFATE SR 30 MG TABLET.SA PO SCH ×2 (08:33→21:44)
[2017-01-13] MEDS: GABAPENTIN 300 MG CAPSULE PO SCH ×3 (08:33→16:00)
[2017-01-13] MEDS: ATOVAQUONE SUSP 750 MG/5 ML PACKET PO SCH (08:33)
[2017-01-13] MEDS: NICOTINE PATCH (21MG) 21 MG PATCH.TD24 TD SCH (08:34)
[2017-01-13] MEDS: ACYCLOVIR 800 MG TABLET PO SCH (08:34)
[2017-01-13] MEDS: hydrOXYzine PAMOATE 25 MG CAPSULE PO SCH ×2 (08:34→16:00)
[2017-01-13] MEDS: ZINC SULFATE 220 MG CAPSULE PO SCH (08:34)
[2017-01-13] MEDS: BUPROPION XL 150 MG TAB.ER.24 PO SCH (08:34)
[2017-01-13] MEDS: PANTOPRAZOLE 40 MG TABLET.DR PO SCH (08:34)
[2017-01-13] MEDS: TENOFOVIR DISOPROXIL FUMARATE 300 MG TABLET PO SCH (08:34)
[2017-01-13] MEDS: FLUOCINONIDE 0.05% CREAM 60 GM TUBE TP SCH ×2 (08:35→16:03)
[2017-01-13] MEDS: oxyCODONE IR immediate release 5 MG CAPSULE PO PRN (11:20)
[2017-01-13 16:00] VITALS: BP 118/66
--- NOTE | 2017-01-13 17:00 | NUR ---
PER MEDARDO, PATIENT IS ACCEPTED TO [facility] AND WILL BE DISCHARGED TOMORROW 01/14/17. CHARGE NURSE MADE AWARE.
--- NOTE | 2017-01-13 19:26 | NUR ---
PT IS IN BED, ALERT AND AWAKE. PT SHOWS NO SIGNS OF SOB OR DIFFICULTY BREATHING. SILVIO MIDLINE INTACT AND PATENT. ALL MEDS WERE GIVEN ORDERED. BED IS IN LOW AND LOCKED POSITION, SIDE RAILS UP X2, AND CALL LIGHT IS IN REACH. ENDORSED TO CRIMINAL JUSTICE INSTRUCTOR RN FOR CONTINUITY OF CARE.
[2017-01-13 20:00] VITALS: BP 89/61
[2017-01-13 20:30] VITALS: BP 92/60
[2017-01-13] MEDS: IV NS 0.9% 1,000 ML IV PRN (20:36)
[2017-01-13] MEDS: SENNOSIDES 8.6 MG TABLET PO SCH (21:44)
[2017-01-14] MEDS: HYDROMORPHONE 1 MG/1 ML DISP.SYRIN IV PRN ×5 (03:53→22:41)
[2017-01-14] MEDS: CEFAZOLIN 2 GM in IV D5W 50 ML IV SCH ×3 (04:54→21:37)
[2017-01-14] MEDS: clonazePAM 1 MG TABLET PO SCH ×3 (04:54→23:21)
--- NOTE | 2017-01-14 06:39 | NUR ---
RN CLOSING NOTES PATIENT RESTING IN BED. A/O X4. NO SIGNS OF DISTRESS OR DISCOMFORT. BREATHING EVEN AND UNLABORED. IV ACCESS IN SILVIO MIDLINE WITH NS INFUSING, NO SIGNS OF REDNESS OR INFILTRATION. ALL NEEDS MET. NO SIGNIFICANT CHANGES THROUGH THE NIGHT. BED IN LOW LOCKED POSITION WITH SIDE RAILS X2. CALL LIGHT WITHIN REACH. WILL ENDORSE TO AM SHIFT FOR SUNNY.
--- NOTE | 2017-01-14 07:30 | NUR ---
RECEIVED PT. IN AM ALERT AND ORIENTED X4. CASE FOLDER LIGHT FREQ.VS STABLE.
[2017-01-14 08:00] VITALS: BP 93/50
[2017-01-14] MEDS: hydrOXYzine PAMOATE 25 MG CAPSULE PO SCH ×2 (08:55→17:57)
[2017-01-14] MEDS: EMTRICITABINE 200 MG CAPSULE PO SCH (08:55)
[2017-01-14] MEDS: ACYCLOVIR 800 MG TABLET PO SCH (08:55)
[2017-01-14] MEDS: BUPROPION XL 150 MG TAB.ER.24 PO SCH (08:56)
[2017-01-14] MEDS: DOCUSATE SODIUM 100 MG CAPSULE PO SCH ×2 (08:56→17:57)
[2017-01-14] MEDS: FOLIC ACID 1 MG TABLET PO SCH (08:56)
[2017-01-14] MEDS: PANTOPRAZOLE 40 MG TABLET.DR PO SCH (08:57)
[2017-01-14] MEDS: ZINC SULFATE 220 MG CAPSULE PO SCH (08:57)
[2017-01-14] MEDS: NICOTINE PATCH (21MG) 21 MG PATCH.TD24 TD SCH (08:57)
[2017-01-14] MEDS: GABAPENTIN 300 MG CAPSULE PO SCH ×3 (08:57→17:57)
[2017-01-14] MEDS: TENOFOVIR DISOPROXIL FUMARATE 300 MG TABLET PO SCH (08:57)
[2017-01-14] MEDS: ATOVAQUONE SUSP 750 MG/5 ML PACKET PO SCH (08:57)
[2017-01-14] MEDS: RALTEGRAVIR POTASSIUM 400 MG TABLET PO SCH ×2 (09:01→17:56)
[2017-01-14] MEDS: FLUOCINONIDE 0.05% CREAM 60 GM TUBE TP SCH ×2 (09:12→17:59)
[2017-01-14] MEDS: MORPHINE SULFATE SR 30 MG TABLET.SA PO SCH ×2 (10:22→21:02)
--- NOTE | 2017-01-14 10:30 | NUR ---
REQUESTING PAIN MEDS OFTEN.BP CHECKED PRIOR TO EACH PAIN INJ. DUE TO FACT BP RUNNING LOW.
--- NOTE | 2017-01-14 11:37 | NUR ---
ZOEY returned Dayron Romero call from [facility] . Dayron informed ZOEY that Can from [place] will be coming to visit with pt. and discuss housing options. ZOEY informed Dayron that pt. will be discharged today to [facility] facility.
--- NOTE | 2017-01-14 14:00 | NUR ---
INFECTIOUS DZ NURSE IN TO SEE PT.
[2017-01-14] MEDS: MEROPENEM 500 MG in IV NS 0.9% 50 ML IV SCH ×2 (14:27→20:49)
--- NOTE | 2017-01-14 15:30 | NUR ---
STILL NO DC AWAITING PLACEMENT.
[2017-01-14 16:00] VITALS: BP 88/57
[2017-01-14] MEDS: IV NS 0.9% 1,000 ML IV PRN (16:19)
--- NOTE | 2017-01-14 18:00 | NUR ---
NO CHANGE IN STATUS.
--- NOTE | 2017-01-14 19:30 | NUR ---
MS/RN RECEIVE PATIENT AWAKE, ALERT, ORIENTED, COMFORTABLE, NO DISTRESS NOTED, CALL LIGHT IN REACH. WILL MONITOR.
[2017-01-14 20:00] VITALS: BP 95/62
[2017-01-14] MEDS: SENNOSIDES 8.6 MG TABLET PO SCH (20:57)
--- NOTE | 2017-01-14 23:25 | NUR ---
MS/RN PATIENT REFUSED IV FLUIDS.
--- NOTE | 2017-01-14 23:40 | NUR ---
MS RN OPENING NOTES: RECEIVED PT FROM DANYELLE RIZZO. PT IS IN BED AND IS RESTING IN BED. NO SIGNS OR SYMPTOMS OF DISTRESS NOTED AT THIS TIME. CALL LIGHT WITHIN PT'S REACH. BED KEPT IN LOCKED, LOWEST POSITION, AND SIDE RAILS X 2 UP. PT IS STILL REFUSING IV FLUIDS. WILL CONTINUE TO MONITOR PT.
--- NOTE | 2017-01-14 23:41 | NUR ---
MS/RN PATIENT IS AWAKE, NO CHANGE IN CONDITION. ENDORSED TO NEXT RN FOR CONTINUITY OF CARE.
[2017-01-15] MEDS: HYDROMORPHONE 1 MG/1 ML DISP.SYRIN IV PRN ×4 (03:31→20:06)
--- NOTE | 2017-01-15 03:31 | NUR ---
LI BASSETT NOTES: PT COMPLAINED OF 8/10 L KNEE PAIN. PT WAS ADMINISTERED DILAUDID 1MG IV. WILL CONTINUE TO MONITOR PT. Addendum: 01/15/17 at 0519 by LISSETH BENAVIDEZ RN MS BASSETT NOTES* (NOT TELE)
--- NOTE | 2017-01-15 04:00 | NUR ---
MS RN NOTES: ENCOURAGED PT TO ELEVATE LEGS FOR HIS BP TO RISE UP. WILL CONTINUE TO MONITOR PT.
[2017-01-15] MEDS: MEROPENEM 500 MG in IV NS 0.9% 50 ML IV SCH ×3 (04:03→22:01)
--- NOTE | 2017-01-15 04:03 | NUR ---
MS RN NOTES: WAS ABLE TO GET PT TO COOPERATE AND RESTART HIM BACK ON THE IV FLUIDS.
[2017-01-15] MEDS: CEFAZOLIN 2 GM in IV D5W 50 ML IV SCH ×3 (04:37→22:01)
[2017-01-15] MEDS: clonazePAM 1 MG TABLET PO SCH ×3 (04:48→20:06)
--- NOTE | 2017-01-15 07:19 | NUR ---
MS RN CLOSING NOTES: ALL NEEDS WERE ATTENDED AND ANTICIPATED FOR. PT IS ASLEEP IN BED WITH LEGS ELEVATED. NO SIGNS OR SYMPTOMS OF DISTRESS NOTED AT THIS TIME. CALL LIGHT WITHIN PT'S REACH. BED KEPT IN LOCKED, LOWEST POSITION, AND SIDE RAILS X 2 UP. PT'S IV IS INTACT AND IS BEING INFUSED WITH NS AT 75ML/HR. ENDORSED TO AM NURSE FOR SUNNY.
--- NOTE | 2017-01-15 07:50 | NUR ---
RN MS NOTES RECEIVED PATIENT IN BED, NO APPARENT DISTRESS NOTED, NO SOB NOTED. SILVIO MIDLINE PATENT INFUSING NS AT 75ML/HR. ALL NEEDS MET, KEPT CLEAN AND DRY, CALL LIGHT WITHIN REACH.
[2017-01-15 08:00] VITALS: BP 97/61
[2017-01-15] MEDS: DOCUSATE SODIUM 100 MG CAPSULE PO SCH ×2 (08:57→16:34)
[2017-01-15] MEDS: BUPROPION XL 150 MG TAB.ER.24 PO SCH (08:57)
[2017-01-15] MEDS: hydrOXYzine PAMOATE 25 MG CAPSULE PO SCH ×2 (08:58→16:34)
[2017-01-15] MEDS: EMTRICITABINE 200 MG CAPSULE PO SCH (08:58)
[2017-01-15] MEDS: GABAPENTIN 300 MG CAPSULE PO SCH ×3 (08:58→16:34)
[2017-01-15] MEDS: TENOFOVIR DISOPROXIL FUMARATE 300 MG TABLET PO SCH (08:58)
[2017-01-15] MEDS: FOLIC ACID 1 MG TABLET PO SCH (08:58)
[2017-01-15] MEDS: NICOTINE PATCH (21MG) 21 MG PATCH.TD24 TD SCH (08:58)
[2017-01-15] MEDS: ZINC SULFATE 220 MG CAPSULE PO SCH (08:58)
[2017-01-15] MEDS: ACYCLOVIR 800 MG TABLET PO SCH (08:58)
[2017-01-15] MEDS: RALTEGRAVIR POTASSIUM 400 MG TABLET PO SCH ×2 (08:59→16:33)
[2017-01-15] MEDS: PANTOPRAZOLE 40 MG TABLET.DR PO SCH (08:59)
[2017-01-15] MEDS: MORPHINE SULFATE SR 30 MG TABLET.SA PO SCH ×2 (09:00→22:03)
[2017-01-15] MEDS ORDERED: GABAPENTIN 300 MG CAPSULE PO SCH (09:00)
[2017-01-15] MEDS: FLUOCINONIDE 0.05% CREAM 60 GM TUBE TP SCH ×2 (09:47→16:27)
[2017-01-15] MEDS: ATOVAQUONE SUSP 750 MG/5 ML PACKET PO SCH (09:48)
[2017-01-15 16:00] VITALS: BP 88/60
--- NOTE | 2017-01-15 19:14 | NUR ---
RN MS CLOSING NOTES PATIENT IN BED, NO APPARENT DISTRESS NOTED, NO SOB NOTED NO FACIAL GRIMACING NOTED. ALL DUE MEDS GIVEN ALL NEEDS MET, KEPT LEAN AND DRY. SILVIO MIDLINE PATENT, WILL ENDORSE CARE TO PM SHIFT.
--- NOTE | 2017-01-15 19:45 | NUR ---
MS RN INITIAL NOTES RECEIVED PATIENT IN BED, COMPLAINTS OF PAIN 03/02. NO SOB NOTED. SILVIO MIDLINE PATENT INFUSING NS AT 75ML/HR. BED IS IN LOW AND LOCKED POSITION, CALL LIGHT WITHIN REACH. WILL CONTINUE TO MONITOR PT
[2017-01-15 20:00] VITALS: BP 96/63
[2017-01-15] MEDS: SENNOSIDES 8.6 MG TABLET PO SCH (22:01)
[2017-01-15] MEDS: IV NS 0.9% 1,000 ML IV PRN (22:02)
[2017-01-16] MEDS: HYDROMORPHONE 1 MG/1 ML DISP.SYRIN IV PRN ×7 (00:14→22:47)
[2017-01-16] MEDS: clonazePAM 1 MG TABLET PO SCH ×3 (03:33→21:10)
[2017-01-16] MEDS: CEFAZOLIN 2 GM in IV D5W 50 ML IV SCH ×3 (04:02→22:46)
[2017-01-16] MEDS: MEROPENEM 500 MG in IV NS 0.9% 50 ML IV SCH ×3 (04:02→21:11)
--- NOTE | 2017-01-16 06:26 | NUR ---
MS RN CLOSING NOTES PT IS IN BED RESTING, NO SOB OR DISTRESS NOTED. SILVIO MIDLINE IS PATENT AND INTACT WITH NS RUNNING AT 75ML/ HR. ALL NEEDS WERE ANTICIPATED AND MET, ALL DUE MEDS WERE GIVEN. BED IS IN LOW AND LOCKED POSITION, CALL LIGHT IS WITHIN REACH. WILL ENDORSE TO DAY SHIFT.
[2017-01-16 08:00] VITALS: BP 91/56
--- NOTE | 2017-01-16 08:54 | NUR ---
MS RN OPENING NOTES: PT IS IN BED AND IS RESTING IN BED. NO SIGNS OR SYMPTOMS OF DISTRESS NOTED AT THIS TIME. RESPIRATIOSN EVEN AND UNLABORED. PATIENT COMPLAINING OF PAIN 9/10 IN THE LEFT KNEE. CALL LIGHT WITHIN REACH. BED LOCKED IN THE LOWEST POSITION, AND SIDE RAILS X 2 UP. PT IS COOPERATING WITH TREATMENT AT THIS TIME. WILL CONTINUE TO MONITOR ASSESS AND EDUCATE PT
--- NOTE | 2017-01-16 08:54 | NUR ---
RN OPENING NOTES PT IS IN BED AND IS RESTING IN BED. NO SIGNS OR SYMPTOMS OF DISTRESS NOTED AT THIS TIME. RESPIRATIOSN EVEN AND UNLABORED. PATIENT COMPLAINING OF PAIN 9/10 IN THE LEFT KNEE. PATIENT HAS SILVIO MIDLINE THAT IS PATENT ANS INTACT. NS RUNNING 75ML/HR AT THIS TIME. CALL LIGHT WITHIN REACH. BED LOCKED IN THE LOWEST POSITION, AND SIDE RAILS X 2 UP. PT IS COOPERATING WITH TREATMENT AT THIS TIME. WILL CONTINUE TO MONITOR ASSESS AND EDUCATE PT
[2017-01-16] MEDS: hydrOXYzine PAMOATE 25 MG CAPSULE PO SCH ×2 (09:36→16:39)
[2017-01-16] MEDS: NICOTINE PATCH (21MG) 21 MG PATCH.TD24 TD SCH (09:36)
[2017-01-16] MEDS: GABAPENTIN 300 MG CAPSULE PO SCH ×3 (09:37→16:47)
[2017-01-16] MEDS: PANTOPRAZOLE 40 MG TABLET.DR PO SCH (09:37)
[2017-01-16] MEDS: DOCUSATE SODIUM 100 MG CAPSULE PO SCH ×2 (09:37→16:39)
[2017-01-16] MEDS: ACYCLOVIR 800 MG TABLET PO SCH (09:37)
[2017-01-16] MEDS: BUPROPION XL 150 MG TAB.ER.24 PO SCH (09:37)
[2017-01-16] MEDS: FOLIC ACID 1 MG TABLET PO SCH (09:37)
[2017-01-16] MEDS: ZINC SULFATE 220 MG CAPSULE PO SCH (09:37)
[2017-01-16] MEDS: FLUOCINONIDE 0.05% CREAM 60 GM TUBE TP SCH ×2 (09:38→16:40)
[2017-01-16] MEDS: TENOFOVIR DISOPROXIL FUMARATE 300 MG TABLET PO SCH (09:42)
[2017-01-16] MEDS: EMTRICITABINE 200 MG CAPSULE PO SCH (09:43)
[2017-01-16] MEDS: RALTEGRAVIR POTASSIUM 400 MG TABLET PO SCH ×2 (09:43→16:39)
[2017-01-16] MEDS: MORPHINE SULFATE SR 30 MG TABLET.SA PO SCH ×2 (09:45→21:11)
[2017-01-16] MEDS: ATOVAQUONE SUSP 750 MG/5 ML PACKET PO SCH (09:50)
[2017-01-16] MEDS: AZITHROMYCIN 250 MG TABLET PO SCH (14:32)
[2017-01-16 16:00] VITALS: BP 99/65
--- NOTE | 2017-01-16 19:12 | NUR ---
RN OPENING NOTES PT IS IN BED AND IS RESTING IN BED. NO SIGNS OR SYMPTOMS OF DISTRESS NOTED AT THIS TIME. RESPIRATIONS EVEN AND UNLABORED. PATIENT COMPLAINING OF PAIN 8/10 IN THE LEFT KNEE. PATIENT HAS SILVIO MIDLINE THAT IS PATENT ANS INTACT. NS RUNNING 75ML/HR AT THIS TIME. CALL LIGHT WITHIN REACH. BED LOCKED IN THE LOWEST POSITION, AND SIDE RAILS X 2 UP. WILL GIVE REPORT TO NIGHT RN FOR CONTINUATION OF CARE. Addendum: 01/16/17 at 1939 by ELIEL GROVER RN RN CLOSING NOTES PT IS IN BED AND IS RESTING IN BED. NO SIGNS OR SYMPTOMS OF DISTRESS NOTED AT THIS TIME. RESPIRATIONS EVEN AND UNLABORED. PATIENT COMPLAINING OF PAIN 8/10 IN THE LEFT KNEE. PATIENT HAS SILVIO MIDLINE THAT IS PATENT ANS INTACT. NS RUNNING 75ML/HR AT THIS TIME. CALL LIGHT WITHIN REACH. BED LOCKED IN THE LOWEST POSITION, AND SIDE RAILS X 2 UP. WILL GIVE REPORT TO NIGHT RN FOR CONTINUATION OF CARE.
[2017-01-16 20:23] VITALS: BP 96/61
[2017-01-16] MEDS: SENNOSIDES 8.6 MG TABLET PO SCH (21:10)
[2017-01-16] MEDS: IV NS 0.9% 1,000 ML IV PRN (22:50)
--- NOTE | 2017-01-16 22:54 | NUR ---
ms/rn notes patient complained of left knee pain, medicated with dilaudid ivp as ordered. v/s stable. fall precautions rendered. will monitor.
[2017-01-17] MEDS: HYDROMORPHONE 1 MG/1 ML DISP.SYRIN IV PRN ×5 (03:13→20:16)
--- NOTE | 2017-01-17 03:17 | NUR ---
ms/rn notes patient complained of left knee pain, 8/10 level of pain medicated with dilaudid ivp as ordered. v/s stable. fall precautions rendered. will monitor.
[2017-01-17] MEDS: clonazePAM 1 MG TABLET PO SCH ×3 (04:07→21:20)
[2017-01-17] MEDS: CEFAZOLIN 2 GM in IV D5W 50 ML IV SCH ×3 (04:08→22:11)
[2017-01-17] MEDS: MEROPENEM 500 MG in IV NS 0.9% 50 ML IV SCH ×3 (04:11→21:20)
--- NOTE | 2017-01-17 07:37 | NUR ---
RN MS OPENING NOTES RECEIVED PATIENT IN BED, AWAKE, HOB ELEVATED, NO SOB OR DISTRESS NOTED. A/O X4 VERBALLY RESPONSIVE AND ABLE TO MAKE NEEDS KNOWN. MIDLINE INTACT AND PATENT. KEEP PATIENT CLEAN AND COMFORTABLE IN BED, CALL LIGHT WITHIN PATIENT REACH, WILL CONTINUE TO MONITOR ACCORDINGLY.
[2017-01-17 08:00] VITALS: BP 92/60
[2017-01-17] MEDS: hydrOXYzine PAMOATE 25 MG CAPSULE PO SCH ×2 (08:25→17:15)
[2017-01-17] MEDS: FOLIC ACID 1 MG TABLET PO SCH (08:25)
[2017-01-17] MEDS: ZINC SULFATE 220 MG CAPSULE PO SCH (08:26)
[2017-01-17] MEDS: GABAPENTIN 300 MG CAPSULE PO SCH ×3 (08:26→17:15)
[2017-01-17] MEDS: DOCUSATE SODIUM 100 MG CAPSULE PO SCH ×2 (08:26→17:15)
[2017-01-17] MEDS: MORPHINE SULFATE SR 30 MG TABLET.SA PO SCH ×2 (08:26→21:00)
[2017-01-17] MEDS: BUPROPION XL 150 MG TAB.ER.24 PO SCH (08:26)
[2017-01-17] MEDS: PANTOPRAZOLE 40 MG TABLET.DR PO SCH (08:27)
[2017-01-17] MEDS: ACYCLOVIR 800 MG TABLET PO SCH (08:27)
[2017-01-17] MEDS: ATOVAQUONE SUSP 750 MG/5 ML PACKET PO SCH (08:27)
[2017-01-17] MEDS: NICOTINE PATCH (21MG) 21 MG PATCH.TD24 TD SCH (08:27)
[2017-01-17] MEDS: TENOFOVIR DISOPROXIL FUMARATE 300 MG TABLET PO SCH (08:28)
[2017-01-17] MEDS: EMTRICITABINE 200 MG CAPSULE PO SCH (08:28)
[2017-01-17] MEDS: RALTEGRAVIR POTASSIUM 400 MG TABLET PO SCH ×2 (08:28→17:15)
[2017-01-17] MEDS: FLUOCINONIDE 0.05% CREAM 60 GM TUBE TP SCH ×2 (08:43→17:15)
--- NOTE | 2017-01-17 11:45 | NUR ---
RN NOTES PATIENT IS IN WHEELCHAIR IN STABLE CONDITION WITH NO SOB OR DISTRESS NOTED.
[2017-01-17 16:00] VITALS: BP 102/66
--- NOTE | 2017-01-17 19:20 | NUR ---
MS/RN NOTES RECEIVED PT. SITTING UP IN BED. AWAKE, ALERT AND ORIENTED X4. BREATHING EVEN AND UNLABORED ON ROOM AIR. NO SOB OR RESPIRATORY DISTRESS NOTED AT THIS TIME. PT. COMPLAINING OF GENERALIZED PAIN 01/30 WILL ADMINISTER TO PT. PAIN MEDICATION ORDERED. PT. WITH RIGHT UPPER ARM MIDLINE PRESENT, PATENT AND INTACT. BED IN LOWEST POSITION, CALL LIGHT WITHIN REACH, SIDE RAILS UP X2, WILL CONTINUE TO MONITOR.
[2017-01-17 20:00] VITALS: BP 95/58
[2017-01-17] MEDS: SENNOSIDES 8.6 MG TABLET PO SCH (22:00)
[2017-01-18] MEDS: HYDROMORPHONE 1 MG/1 ML DISP.SYRIN IV PRN ×5 (01:36→15:29)
[2017-01-18] MEDS: clonazePAM 1 MG TABLET PO SCH ×2 (04:00→12:04)
[2017-01-18] MEDS: MEROPENEM 500 MG in IV NS 0.9% 50 ML IV SCH ×2 (05:14→12:28)
[2017-01-18] MEDS: CEFAZOLIN 2 GM in IV D5W 50 ML IV SCH ×2 (06:05→12:03)
--- NOTE | 2017-01-18 06:13 | NUR ---
MS/RN NOTES PT. LYING IN BED RESTING. BREATHING EVEN AND UNLABORED ON ROOM AIR. NO SOB OR RESPIRATORY DISTRESS OR COMPLAINTS OF PAIN NOTED AT THIS TIME. PT. WITH RIGHT UPPER ARM MIDLINE PRESENT, PATENT AND INTACT. ALL PT. NEEDS MET. BED IN LOWEST POSITION, CALL LIGHT WITHIN REACH, SIDE RAILS UP X2, WILL ENDORSE TO DAYSHIFT NURSE FOR CONTINUITY OF CARE.
[2017-01-18] MEDS: oxyCODONE IR immediate release 5 MG CAPSULE PO PRN (07:19)
[2017-01-18 08:00] VITALS: BP 95/68
[2017-01-18] MEDS: EMTRICITABINE 200 MG CAPSULE PO SCH (09:00)
[2017-01-18] MEDS: MORPHINE SULFATE SR 30 MG TABLET.SA PO SCH (09:00)
[2017-01-18] MEDS: ATOVAQUONE SUSP 750 MG/5 ML PACKET PO SCH (09:05)
[2017-01-18] MEDS: FOLIC ACID 1 MG TABLET PO SCH (09:06)
[2017-01-18] MEDS: PANTOPRAZOLE 40 MG TABLET.DR PO SCH (09:06)
[2017-01-18] MEDS: BUPROPION XL 150 MG TAB.ER.24 PO SCH (09:06)
[2017-01-18] MEDS: ZINC SULFATE 220 MG CAPSULE PO SCH (09:06)
[2017-01-18] MEDS: ACYCLOVIR 800 MG TABLET PO SCH (09:06)
[2017-01-18] MEDS: GABAPENTIN 300 MG CAPSULE PO SCH ×2 (09:06→12:04)
[2017-01-18] MEDS: RALTEGRAVIR POTASSIUM 400 MG TABLET PO SCH (09:07)
[2017-01-18] MEDS: NICOTINE PATCH (21MG) 21 MG PATCH.TD24 TD SCH (09:07)
[2017-01-18] MEDS: hydrOXYzine PAMOATE 25 MG CAPSULE PO SCH (09:07)
[2017-01-18] MEDS: TENOFOVIR DISOPROXIL FUMARATE 300 MG TABLET PO SCH (09:07)
[2017-01-18] MEDS: DOCUSATE SODIUM 100 MG CAPSULE PO SCH (09:08)
[2017-01-18] MEDS: FLUOCINONIDE 0.05% CREAM 60 GM TUBE TP SCH (09:19)
--- NOTE | 2017-01-18 14:25 | NUR ---
RN NOTES PATIENT IS IN WHEELCHAIR IN STABLE CONDITION WITH NO SOB OR DISTRESS NOTED.
--- NOTE | 2017-01-18 17:10 | NUR ---
RN NOTES DISCHARGE INSTRUCTIONS GIVEN TO PATIENT AND ABLE TO UNDERSTAND INSTRUCTIONS AND SIGNED DISCHARGE PAPER AND BELONGINGS LIST. PATIENT LEFT VIA GURNEY ACCOMPANIED WITH EMT'S IN STABLE CONDITION. NO SOB OR DISTRESS NOTED. PICTURES TAKEN AND FILED. VITALS SIGNS CHECKED AND RECORDED. MD AND CHARGE NURSE AWARE.
--- NOTE | 2017-01-22 14:43 | NUR ---
SW received a voicemail from pt's casework manager Adrienne from [facility] [phone] informing SW that pt. informed him that he has not yet received wound care treatment and IV treatment at his board and care. ZOEY contacted casework manager Lyla regarding Adrienne's concerns. Lyla informed SW she spoke with Adrienne and left a message for Vanessa, board and care senior pensions administrator regarding pt. not receiving treatment.
== END 2017-01-18 16:00 | disposition home or self-care (01) | DRG 48 ==
LOC: ER 15:38 → MED 17:01
PROVIDERS: ADMIT Nurse Practitioner Acute Care; ATTEND Nurse Practitioner Acute Care
PROC: 05H533Z Insertion of Infusion Device into Right Subclavian Vein, Percutaneous Approach (ICD-10-PCS; principal; 2017-01-14)
DX: G90.8 Other disorders of autonomic nervous system (principal); E43 Unspecified severe protein-calorie malnutrition; B20 Human immunodeficiency virus [HIV] disease; M00.9 Pyogenic arthritis, unspecified; E87.1 Hypo-osmolality and hyponatremia; E27.40 Unspecified adrenocortical insufficiency; F11.20 Opioid dependence, uncomplicated; Z88.2 Allergy status to sulfonamides; Z88.1 Allergy status to other antibiotic agents; Z88.8 Allergy status to other drugs, medicaments and biological substances; D63.8 Anemia in other chronic diseases classified elsewhere; B18.2 Chronic viral hepatitis C; Z59.0 Homelessness; Z76.5 Malingerer [conscious simulation]; Z91.19 Patient's noncompliance with other medical treatment and regimen; Z79.2 Long term (current) use of antibiotics; R73.9 Hyperglycemia, unspecified; E03.9 Hypothyroidism, unspecified; F17.200 Nicotine dependence, unspecified, uncomplicated; K59.03 Drug induced constipation; T40.2X5A Adverse effect of other opioids, initial encounter; Z79.899 Other long term (current) drug therapy; B95.0 Streptococcus, group A, as the cause of diseases classified elsewhere; D72.819 Decreased white blood cell count, unspecified; F22 Delusional disorders; Z85.89 Personal history of malignant neoplasm of other organs and systems
CPT/HCPCS: 36415; 36569; 71010-TC; 73564-TC; 80048-TC; 80061-TC; 80076-TC; 83605-TC; 83735-TC; 84100-TC; 84443-TC; 85025-TC; 85730-TC; 86850-TC; 86880-TC; 87040-TC; 87070-TC; 87081-TC; 87186-TC; 89051-TC; 97001-TC; A4216; A4606; A6402; A6403; J0690; J0692; J0744; J1170; J1956; J2020; J2185; J2270; J2405; J3243; J3475; J3490; J7030; J7060; Q0177; Z7610

== ENCOUNTER 2017-01-24 14:35 | Emergency (ER) | payer OTHER ==
[~2017-01-24 14:35] MED LIST changes: +ACET325T53 PO; +AZIT600T2 PO; -CALC-838 PO; +CHOL3000 PO; +GABA300C PO; +LACT10SO29 PO; +MAG30ORA PO; +MAGN400O6 PO; -MORP30TA PO; +MORP30TA10 PO; +NICO1PAT28 TD; +ONDA4TAB8 PO; +OXYC-34 PO; +PANT40TA2 PO; +SENN-18 PO; +TRIM100T PO; +ZINC220C6 PO; -ZINC50TA2 PO; +ZOLP5TAB7 PO
--- NOTE | 2017-01-24 14:43 | NUR ---
ERROR IN REGISTRATION
== END 2017-01-24 15:00 | disposition left against medical advice (07) ==
LOC: ER 14:44
DX: Z53.21 Procedure and treatment not carried out due to patient leaving prior to being seen by health care provider (principal)
CPT/HCPCS: A4606; Z7610

== ENCOUNTER 2017-01-24 14:59 | Emergency (ER) | payer OTHER ==
--- NOTE | 2017-01-24 16:04 | NUR ---
DR CARRINGTON AT BEDSIDE FOR PICC LINE PLACEMENT.
[2017-01-24] MEDS ORDERED: HYDROMORPHONE INJ 2 MG/ML DISP.SYRIN ONE (16:25)
[2017-01-24] MEDS ORDERED: HYDROMORPHONE INJ 2 MG/ML DISP.SYRIN IV ONE (16:30)
== END 2017-01-24 16:58 | disposition home or self-care (01) ==
LOC: ER 15:01
DX: Z45.2 Encounter for adjustment and management of vascular access device (principal); K21.9 Gastro-esophageal reflux disease without esophagitis; I10 Essential (primary) hypertension; Z88.2 Allergy status to sulfonamides; Z88.1 Allergy status to other antibiotic agents; Z88.8 Allergy status to other drugs, medicaments and biological substances
CPT/HCPCS: A4606; J1170; Z7610

== ENCOUNTER 2017-02-18 21:34 | Emergency (ER) | payer OTHER ==
[~2017-02-18] VITALS: Ht 188 cm; Wt 72.1 kg
--- NOTE | 2017-02-18 21:50 | NUR ---
PT WHEELED TO ER BED 12. SENT HERE FROM [facility] FOR MIDLINE PLACEMENT. STATES ACCIDENTALLY PULLED OUT LAST FRIDAY. PT IS AAO, STABLE VITALS. NAD NOTED. AWAITING MD CAMARGO.
--- NOTE | 2017-02-18 22:59 | NUR ---
DR CARRINGTON AT BEDSIDE FOR MIDLINE PLACEMENT.
[2017-02-18] MEDS ORDERED: ONDANSETRON HCL/PF 4 MG/2 ML VIAL ONE (23:19)
[2017-02-18] MEDS ORDERED: HYDROMORPHONE INJ 2 MG/ML DISP.SYRIN ONE (23:19)
[2017-02-18] MEDS ORDERED: ONDANSETRON HCL/PF 4 MG/2 ML VIAL IV ONE (23:30)
[2017-02-18] MEDS ORDERED: HYDROMORPHONE INJ 2 MG/ML DISP.SYRIN IV ONE (23:30)
--- NOTE | 2017-02-18 23:38 | NUR ---
PT OK FOR D/C. CALLED FACILITY TO TAKE PT BACK. D/C IN STABLE CONDITION.
[2017-02-18 23:39] VITALS: BP 112/74
== END 2017-02-18 23:40 | disposition home or self-care (01) ==
LOC: ER 21:36
DX: Z95.9 Presence of cardiac and vascular implant and graft, unspecified (principal); I10 Essential (primary) hypertension; K21.9 Gastro-esophageal reflux disease without esophagitis; Z88.2 Allergy status to sulfonamides; Z88.1 Allergy status to other antibiotic agents; Z88.8 Allergy status to other drugs, medicaments and biological substances
CPT/HCPCS: 36569; 96374; 96375; 99285; A4606; J1170; J2405; Z7610

== ENCOUNTER 2017-02-26 00:17 | Inpatient (IN) | payer OTHER ==
[2017-02-26] VITALS (10 sets, daily range): BP systolic 83–99; BP diastolic 48–55
[~2017-02-26] VITALS: Ht 175.3 cm; Wt 68.0 kg
--- NOTE | 2017-02-26 00:33 | NUR ---
56 YO MALE C/O GENERALIZED BODY PAIN. PT ASSISTED TO ER BED, SKIN WARM AND DRY, RR EVEN AND UNLABORED. PT GOWNED, PLACED ON ELECTRICIAN SOUND. AWAITING ORDERS FROM PROVIDER, WILL CONTINUE TO MONITOR
--- NOTE | 2017-02-26 01:35 | NUR ---
LAB AT BED SIDE FOR BLOOD DRAW
[2017-02-26 02:02] LABS: CALCIUM, SERUM 7.5 mg/dL (8.5-10.1); CREATININE 0.9 mg/dL (0.6-1.3); POTASSIUM 3.8 mmol/L (3.5-5.1)
[2017-02-26 02:05] LABS: INR 1.14 (0.87-1.13); PROTHROMBIN TIME 12.3 SECS (9.5-12.7)
[2017-02-26 02:37] LABS: EOSINOPHILS # (AUTO) 0.2 /CMM (0.0-0.7); EOSINOPHILS % (AUTO) 10.9 % (0.0-6.0); LYMPHOCYTES # (AUTO) 0.2 /CMM (0.8-4.8); LYMPHOCYTES % (AUTO) 12.7 % (20.0-44.0); MEAN CORPUSCULAR HEMOGLOBIN 34 PG (26.0-33.0); MEAN CORPUSCULAR HGB CONC 33 g/dl (31.0-36.0); MEAN CORPUSCULAR VOLUME 105 fL (80-96); MONOCYTES # (AUTO) 0.1 /CMM (0.1-1.30); NEUTROPHILS # (AUTO) 1.3 /CMM (1.8-8.9); NEUTROPHILS % (AUTO) 70.4 % (43.0-81.0); PLATELET COUNT (AUTO) 136 /CMM (150-450)
[2017-02-26 02:45] LABS: HEMOGLOBIN 4.4 g/dL (13.5-17.5); WHITE BLOOD COUNT (AUTO) 1.9 K/uL (4.3-11.0)
[2017-02-26 02:46] LABS: HEMATOCRIT 14 % (39-51)
--- NOTE | 2017-02-26 02:52 | NUR ---
ASSIGNED M/S 307-1
--- NOTE | 2017-02-26 05:19 | NUR ---
medicated pt as ordered
[2017-02-26 05:56] LABS: BAND % (MANUAL) 1 % (0.0-5.0); EOSINOPHILS % (MANUAL) 3 % (0-4); LYMPHOCYTES % (MANUAL) 16 % (16-48); METAMYELOCYTES % 1 % (0-0); MYELOCYTES % 1 % (0-0); NEUTROPHILS % (MANUAL) 78 (42-76)
--- NOTE | 2017-02-26 06:36 | NUR ---
medicated pt as ordered
--- NOTE | 2017-02-26 06:48 | NUR ---
patient resting in er bed, nad noted, skin warm and dry, will continue to monitor. Pt in on security monitor
--- NOTE | 2017-02-26 07:36 | NUR ---
lizeth ambrose took report for riky
--- NOTE | 2017-02-26 07:39 | NUR ---
TRANSPORTED PT TO [facility] BED WITHOUT INCIDENT
[2017-02-26 08:27] LABS: IRON, SERUM 76 ug/dl (50-175); TOTAL IRON BINDING CAPACITY 233 ug/dl (250-450)
--- NOTE | 2017-02-26 09:00 | NUR ---
PT AOX4, VSS, AGITATED, REFUSING TO GIVE ANY HISTORY AND ASSESSMENT PRIOR TO BEING MEDICATED FOR PAIN. PT NOTIFIED THAT MEDICATION IS OUT OF STOCK IN THE [facility]LE [facility], AND THE ORDER IS BEING CHANGED BY PHARMACY. PT NOTED TO HAVE RUE MIDLINE THAT HE STATS WAS INSERTED HERE PRIOR TO HIS PREVIOUS DISCHARGE TO [facility]. UNABLE TO ASSESS MIDLINE DUE TO MULTIPLE LAYERS OF HEAVENLY SOILED DRESSINGS AND TAPE. REFUSED ADDITIONAL IV INSERTION. FULLY HEALED SCARS NOTED ONE SACRAL AMD ONE ON RUE, PT REFUSED PHOTOS.
--- NOTE | 2017-02-26 11:00 | NUR ---
PT IS UNCOOPERATIVE. MIDLINE CARE PROVIDED.
[2017-02-27] VITALS (16 sets, daily range): BP systolic 90–111; BP diastolic 51–72
[2017-02-27 06:29] LABS: BASOPHILS % (AUTO) 0.1 % (0.0-2.0); EOSINOPHILS # (AUTO) 0.2 /CMM (0.0-0.7); EOSINOPHILS % (AUTO) 13.7 % (0.0-6.0); LYMPHOCYTES # (AUTO) 0.2 /CMM (0.8-4.8); LYMPHOCYTES % (AUTO) 21.7 % (20.0-44.0); MEAN CORPUSCULAR HEMOGLOBIN 39 PG (26.0-33.0); MEAN CORPUSCULAR HGB CONC 35 g/dl (31.0-36.0); MEAN CORPUSCULAR VOLUME 111 fL (80-96); MONOCYTES # (AUTO) 0.1 /CMM (0.1-1.30); MONOCYTES % (AUTO) 7.3 % (2.0-12.0); NEUTROPHILS # (AUTO) 0.6 /CMM (1.8-8.9); NEUTROPHILS % (AUTO) 57.2 % (43.0-81.0); PLATELET COUNT (AUTO) 119 /CMM (150-450); RETICULOCYTE COUNT 8.4 % (0.6-2.5)
[2017-02-27 06:32] LABS: RED BLOOD CELL COUNT(AUTO) 1.32 MIL/uL (4.5-6.0)
[2017-02-27 06:34] LABS: HEMOGLOBIN 5.1 g/dL (13.5-17.5); WHITE BLOOD COUNT (AUTO) 1.1 K/uL (4.3-11.0)
[2017-02-27 06:35] LABS: HEMATOCRIT 15 % (39-51)
[2017-02-27 07:21] LABS: CALCIUM, SERUM 7.2 mg/dL (8.5-10.1); CREATININE 0.8 mg/dL (0.6-1.3); MAGNESIUM 1.9 mg/dL (1.8-2.4); PHOSPHORUS 2.6 mg/dL (2.5-4.9); POTASSIUM 3.4 mmol/L (3.5-5.1)
[2017-02-27 07:31] LABS: THYROID STIMULATING HORMONE 2.002 uIU/mL (0.358-3.74); URIC ACID 5.4 mg/dL (2.6-7.2)
--- NOTE | 2017-02-27 08:04 | NUR ---
RN NOTES RECV'D REPORT FROM RAGHAV RN "IMELDA". ASSESSED PT A&OX4 LYING IN BED. NO SOB. ROOM AIR. TELE MONITOR NSR 70-80 BPM. ASSISTED PT TO W/C AND BR. BM+. VOIDS. NO SKIN BREAKDOWN. LEFT KNEE SWELLING. C/O KNEE PAIN NOC RN GAVE MORPHINE PO SCHEDULED. WBC 1.1. AFEBRILE. HGB 4.4 OVER NIGHT GIVEN PRBC X2 UNITS NOW HGB 5.1. WILL TRANSFUSE ADDT'L PRBC. IV IRON HAS ALSO BEEN ORDERED BY . IVF NS @75CC/HR RUNNING RUE MIDLINE PATENT. BED IN LOW LOCKED POSITION. BED ALARM ON. SIDE RAILS UP X3. CALL IN REACH. WILL CONT TO MONITOR CLOSELY.
--- NOTE | 2017-02-27 08:15 | NUR ---
SW left a voicemail message for pt's special education case manager Adrienne at [facility] [phone] informing him that pt. was evicted from his board and care for selling drugs and that pt. will be discharged today to a [facility] since it's the only option available at this time.
--- NOTE | 2017-02-27 10:39 | NUR ---
RN NOTES SPOKE WITH DR. PARRY NOTIFIED WBC 1.1 AND SHE IS AGREEABLE TO REVERSE ISOLATION PRECAUTIONS. PT HAS H/O HIV/AIDS.
[2017-02-27 11:10] LABS: *BASOS 1 % (.); *COMMENTS Note: (.); *EOS 9 % (.); *EOS, ABSOLUTE 0.1 x10E3/uL (0.0-0.4); *IMMATURE GRANULOCYTES 1 % (.); *LYMPHOCYTES 20 % (.); *LYMPHS, ABSOLUTE 0.3 x10E3/uL (0.7-3.1); *MCH 32.2 pg (26.6-33.0); *MCHC 32.2 g/dL (31.5-35.7); *MCV 100 fL (79-97); *MONOCYTES 7 % (.); *MONOS, ABSOLUTE 0.1 x10E3/uL (0.1-0.9); *NEUTROPHILS 62 % (.); *NEUTROPHILS, ABSOLUTE 0.8 x10E3/uL (1.4-7.0); *NRBC 4 % (0 - 0); *PLT 110 x10E3/uL (150-379); *RBC 1.21 x10E6/uL (4.14-5.80); *RDW 15.6 % (12.3-15.4)
--- NOTE | 2017-02-27 11:31 | NUR ---
ms rn note spoke with dr belle aware that hg 5.[address] love order 2 units prbc
--- NOTE | 2017-02-27 12:18 | NUR ---
MS RN NOTE SPOKE WITH DR PARRY NOTIFIED THAT FOR BLOOD TRANSFUSION HAS WARM AUTOANTIBODIES IN BLOOD OK TO GIVE BENADRYL 25 MG IV Q8 HR PRN , ORDER CARRIED OUT Addendum: 02/27/17 at 1227 by LEONIE GATES RN IST UNIT PRBC START TO INFUSE ORDERED , NO ADVERSE REACTION NOTED STARTED AT 50 ML PER HOUR ,WILL CONT TO MONITOR CLOSELY
--- NOTE | 2017-02-27 13:14 | NUR ---
RN NOTES PT TOLERATING PRBC TRF INFUSING AT PRESENT. SITTING UP IN BED WATCHING TV. ATE ABOUT 50% DIET OFFERED. DENIES SOB. RA O2 SATS 100%. TELE MONITOR NSR. NEUTROPENIC ISOLATION PRECAUTIONS IN PLACE. BED IN LOW LOCKED POSITION. CALL LIGHT IN REACH. WILL CONT TO MONITOR.
--- NOTE | 2017-02-27 15:17 | NUR ---
MS RN NOTE BLOOD TRANSFUSION COMPLETED , NO ADVERSE REACTION NOTED , VS WNL ,NOT IN ACUTE DISTRESS
[2017-02-27 16:35] LABS: ALBUMIN 2.5 g/dL (3.4-5.0); BILIRUBIN,DIRECT 1.7 mg/dL (0.0-0.2); BILIRUBIN,TOTAL 3.9 mg/dL (0.2-1.0); TOTAL PROTEIN, SERUM 6.2 g/dL (6.4-8.2)
--- NOTE | 2017-02-27 16:40 | NUR ---
RN NOTES PT SITTING UP AWAKE IN BED WATCHING TV. MD BARROW'D IV IRON. PT TOLERATED PRBC. WILL START NEXT PRBC UNIT ONCE READY IN BLOOD BANK.
--- NOTE | 2017-02-27 17:28 | NUR ---
MS RN NOTE REFUSED TO BE CLEANED AND CHANGED LINEN ,OFFEREDX3 STILL REFUGED WILL CONT TO MONITOR CLOSELY
--- NOTE | 2017-02-27 17:35 | NUR ---
RN NOTES 2ND UNIT PRBC STARTED 15 MIN AGO. NO REACTION AT PRESENT. PT RESTING COMFORTABLY. WILL RECHECK VITALS IN ONE HR.
--- NOTE | 2017-02-27 17:57 | NUR ---
RN NOTES PT CURRENTLY RECEIVING 2ND PRBC ON THIS SHIFT AND TOLERATING WELL. NO SOB. DENIES FEVER, CHILLS, BACK PAIN. PT RECEIVED NORCO TWICE PRN AND MORPHINE IR PO SCHEDULED ONCE TODAY. HE HAS EATEN ABOUT 50% OF FOOD PROVIDED. PT IS RESTING COMFORTABLY O2 SATS 100% RA. WILL ENDORSE REPORT TO NOC RN. BED IN LOW LOCKED POSITION. SIDE RAILS UP X3. CALL LIGHT IN REACH.
--- NOTE | 2017-02-27 19:15 | NUR ---
RN INITIAL NOTES RECEIVED REPORT FROM AM SHIFT. PATIENT IS IN BED, AWAKE AND ALERT X3-4. PATIENT OBSERVED WITH SOME AGITATION AND NONCOMPLIANCE WITH CARE OFFERED. CURRENTLY RECEIVING 2ND UNIT OF BLOOD FROM AM SHIFT, NO TRANSFUSION REACTION NOTED. C/O BACK PAIN, MEDICATED WITH NORCO BY AM NURSE. ON ROOM AIR WITH NO DISTRESS. WITH SILVIO MIDLINE, INTACT AND PATENT. NOTED WITH LLE SWELLING, ELEVATED WITH PILLOWS TOLERATED. PATIENT'S NEEDS ANTICIPATED AND MET. SAFETY AND COMFORT ENSURED. BED IN LOW AND LOCKED POSITION. CALL LIGHT IN REACH. WILL MONITOR.
--- NOTE | 2017-02-27 21:15 | NUR ---
RN NOTES H/H AND REPEAT BLOOD CULTURES DRAWN ORDERED AT THIS TIME. AT 2030, BLOOD TRANSFUSION COMPLETED. NO TRANSFUSION REACTION NOTED. VS STABLE, RECORDED AT TRANSFUSION SPREADSHEET.
[2017-02-27 21:33] LABS: HEMOGLOBIN 6.4 g/dL (13.5-17.5)
--- NOTE | 2017-02-27 22:30 | NUR ---
RN NOTES RECEIVED REPORT FROM LABS REGARDING PATIENT'S H/H RESULTS, WITH VALUE OF 6.4/20. CALLED AND SPOKE WITH DR. SANDOVAL AND CONFIRMED AND VERIFIED STANDING ORDER FROM DR. TURNER AND DR. PARRY THIS AM, TO GIVE 1UNIT OF PRBC IF REPEAT HEMOGLOBIN POST BLOOD TRANSFUSION IS LESS THAN 7. ORDER OBTAINED, NOTED AND CARRIED OUT. F/UP ACCORDINGLY WITH BLOOD BANK, AWAITING AVAILABILITY.
--- NOTE | 2017-02-27 23:45 | NUR ---
RN NOTES 1unit OF PRBC STARTED ORDERED. VERIFIED AND CHECKED PRBC WITH ANOTHER RN. VS STABLE AT THIS TIME, AFEBRILE. WILL MONITOR.
[2017-02-28] VITALS (16 sets, daily range): BP systolic 83–115; BP diastolic 53–67
--- NOTE | 2017-02-28 03:00 | NUR ---
RN NOTES BLOOD TRANSFUSION COMPLETED. NO TRANSFUSION REACTION NOTED. PATIENT'S NEEDS ANTICIPATED AND MET. SAFETY AND COMFORT ENSURED. PATIENT WITH C/O BACK PAIN, MEDICATED WITH DILAUDID PRN PER PATIENT'S REQUESTS, SAFETY AND COMFORT ENSURED AT THIS TIME. CALL LIGHT IN REACH.
--- NOTE | 2017-02-28 06:45 | NUR ---
RN CLOSING NOTES PATIENT WITH NO ACUTE DISTRESS AND CHANGE IN CONDITION OBSERVED OVERNIGHT. PATIENT'S NEEDS ANTICIPATED AND MET, HOWEVER PATIENT STRONGLY REFUSES PM/AM CARE. SILIVO MIDLINE REMAINS INTACT AND PATENT. ALL DUE MEDS GIVEN ORDERED. AM LABS DRAWN. SAFETY AND COMFORT ENSURED. BED IN LOW AND LOCKED POSITION. CALL LIGHT IN REACH. WILL ENDORSE ACCORDINGLY FOR CONTINUITY OF CARE.
--- NOTE | 2017-02-28 07:30 | NUR ---
RN INITIAL NOTES PATIENT IS IN BED, AWAKE AND ALERT X3-4. C/O KNEE PAIN, MORPHINE ADMINISTERED PER SCHEDULE.ON ROOM AIR WITH NO DISTRESS. WITH SILVIO MIDLINE, INTACT AND PATENT. NOTED WITH LLE SWELLING, ELEVATED WITH PILLOWS TOLERATED. PATIENT'S NEEDS ANTICIPATED AND MET. SAFETY AND COMFORT ENSURED. BED IN LOW AND LOCKED POSITION. CALL LIGHT IN REACH. WILL MONITOR.
[2017-02-28 07:37] LABS: D-DIMER 0.97 mg/L(FEU (0.17-0.50); INR 1.11 (0.87-1.13)
[2017-02-28 07:45] LABS: CALCIUM, SERUM 7.2 mg/dL (8.5-10.1); CREATININE 0.8 mg/dL (0.6-1.3); MAGNESIUM 1.9 mg/dL (1.8-2.4); PHOSPHORUS 2.3 mg/dL (2.5-4.9); POTASSIUM 4.1 mmol/L (3.5-5.1)
[2017-02-28 08:29] LABS: EOSINOPHILS # (AUTO) 0.1 /CMM (0.0-0.7); HEMATOCRIT 21 % (39-51); LYMPHOCYTES # (AUTO) 0.1 /CMM (0.8-4.8); LYMPHOCYTES % (AUTO) 4.7 % (20.0-44.0); MEAN CORPUSCULAR HEMOGLOBIN 32 PG (26.0-33.0); MEAN CORPUSCULAR HGB CONC 33 g/dl (31.0-36.0); MEAN CORPUSCULAR VOLUME 99 fL (80-96); MONOCYTES # (AUTO) 0.1 /CMM (0.1-1.30); MONOCYTES % (AUTO) 2.4 % (2.0-12.0); NEUTROPHILS # (AUTO) 2.5 /CMM (1.8-8.9); NEUTROPHILS % (AUTO) 88.9 % (43.0-81.0); PLATELET COUNT (AUTO) 102 /CMM (150-450); RDW COEFFICIENT OF VARIATION 18.6 (11.5-15.0); RED BLOOD CELL COUNT(AUTO) 2.11 MIL/uL (4.5-6.0); WHITE BLOOD COUNT (AUTO) 2.8 K/uL (4.3-11.0)
[2017-02-28 08:33] LABS: HEMOGLOBIN 6.8 g/dL (13.5-17.5)
--- NOTE | 2017-02-28 08:56 | NUR ---
WOUND CARE CONSULT: PT ADAMANTLY REFUSED SKIN ASSESSMENT. PT ON WALTER ISOFLEX LOW AIRLOSS BED. ALL SKIN PROTECTION MEASURES IN PLACE AND DISCUSSED WITH NURSING STAFF. PER NURSING STAFF, PT HAS SACRAL SCAR. WILL SEE PRN. [place]SON IN AGREEMENT WITH PLAN OF CARE.
[2017-02-28 09:08] LABS: BAND % (MANUAL) 16 % (0.0-5.0); EOSINOPHILS % (MANUAL) 3 % (0-4); LYMPHOCYTES % (MANUAL) 5 % (16-48); METAMYELOCYTES % 1 % (0-0); MONOCYTES % (MANUAL) 4 % (0-11.0); NEUTROPHILS % (MANUAL) 71 (42-76)
--- NOTE | 2017-02-28 14:47 | NUR ---
SW met with pt. bedside. Pt. is alert and oriented x4. Pt. is disgruntle not very cooperative with SW. SW is familiar with pt. from previous admissions. Pt. was residing at [facility] for the past month and has been evicted as of earlier this month due to selling narcotics outside his board and care. Pt. has burned his bridges from several homes and placements due to his behaviors and drug use. Pt's bilingual patient support caseworker from [facility] Michelle Giraldo RN stopped by to speak with bilingual patient support caseworker Ashutosh today and to see pt. telecommunications project manager Ashutosh informed SW that Michelle was informed about pt. losing his placement and might have to go to homeless penitentiary, if deemed appropriate at time of discharge. SW to follow up with pt. prior to discharge regarding discharge plan. Currently pt. is not medically cleared for discharge and is receiving blood transfusion.
[2017-02-28 16:49] LABS: HEMOGLOBIN 7.7 g/dL (13.5-17.5)
--- NOTE | 2017-02-28 19:21 | NUR ---
RECEIVED NEW ORDER FOR MIDLINE INSERTION FROM JAILER(I.D) SINCE SHE THINKS MIDLINE IS OLD AND POSSIBLY INFECTED.PATIENT IS ALERT AND VERBALIZED IT WAS INSERTED 02/27/2017.ORDER WAS CANCELLED AND N.P MADE AWARE
--- NOTE | 2017-02-28 19:46 | NUR ---
RN INITIAL NOTE ; PT ON THE BED RESTING WITHOUT ANY DISTRESS . A/O X 4 , BREATHING EVEN AND UNLABORED ON ROOM AIR . SILVIO MIDLINE INTACT AND PATENT . VERBALIZED PAIN WITHIN TOLERABLE LEVEL AT THIS TIME. CONTINENT TO BOWEL/BLADDER . CALL LIGHT WITHIN REACH . WILL CONTINUE TO MONITOR .
--- NOTE | 2017-02-28 21:15 | NUR ---
RN NOTE; PRN DILAUDID 0.5 MG IV GIVEN FOR KNEE PAIN LEVEL 8/10 , TOLERATED WELL AT THIS TIME. WILL REASSESS.
--- NOTE | 2017-02-28 22:05 | NUR ---
RN NOTE; PRN AMBIEN 5 MG PO GIVEN PER PT REQUEST FOR INSOMNIA , TOLERATED WELL AT THIS TIME . WILL REASSESS
[2017-03-01 01:19] LABS: ERYTHROPOIETIN 381.4 mIU/mL (2.6-18.5)
--- NOTE | 2017-03-01 03:25 | NUR ---
RN NOTE; PRN DILAUDID 0.5 MG IV GIVEN FOR KNEE PAIN LEVEL 8/10 , TOLERATED WELL AT THIS TIME. WILL CONTINUE TO MONITOR.
[2017-03-01 04:00] VITALS: BP 90/51
[2017-03-01 05:11] LABS: HAPTOGLOBIN <10 mg/dL (34-200)
--- NOTE | 2017-03-01 07:00 | NUR ---
RN EOS NOTE; PT REMAINED STABLE DURING THE SHIFT . ALL NEEDS ATTENDED PROMPTLY. PRN PAIN MEDS GIVEN NEEDED , PT REFUSED AM CARE AND AM BLOOD DRAW . RISK EXPLAINED X 3 . ALL PRESCRIBED ATB TOLERATED WELL. WILL ENDORSE TO NEXT SHIFT RN FOR CONTINUITY OF CARE.
--- NOTE | 2017-03-01 07:00 | NUR ---
RN NOTES RECEIVED PATIENT IN BED ALERT, AWAKE, ORIENTED X3 WITH BREATHING NORMAL, EVEN AND UNLABORED. NO SOB NOTED. ON ROOM AIR, SATURATING WELL. NO ACUTE DISTRESS NOTED. PAIN MANAGEMENT PER ORDER. SILVIO MIDLINE IS PATENT AND INTACT. KEPT CLEAN, DRY AND COMFORTABLE. ALL NEEDS ATTENDED. SAFETY MEASURE OBSERVED. CALL LIGHT WITH IN REACH. WILL CONT TO MONITOR.
[2017-03-01 08:00] VITALS: BP 107/68
[2017-03-01 10:57] LABS: BASOPHILS % (AUTO) 0.2 % (0.0-2.0); EOSINOPHILS # (AUTO) 0.2 /CMM (0.0-0.7); EOSINOPHILS % (AUTO) 6.4 % (0.0-6.0); HEMATOCRIT 23 % (39-51); HEMOGLOBIN 7.9 g/dL (13.5-17.5); LYMPHOCYTES # (AUTO) 0.3 /CMM (0.8-4.8); LYMPHOCYTES % (AUTO) 11.5 % (20.0-44.0); MEAN CORPUSCULAR HEMOGLOBIN 36 PG (26.0-33.0); MEAN CORPUSCULAR HGB CONC 34 g/dl (31.0-36.0); MEAN CORPUSCULAR VOLUME 105 fL (80-96); MONOCYTES # (AUTO) 0.1 /CMM (0.1-1.30); NEUTROPHILS # (AUTO) 2.1 /CMM (1.8-8.9); NEUTROPHILS % (AUTO) 79.9 % (43.0-81.0); PLATELET COUNT (AUTO) 112 /CMM (150-450); RDW COEFFICIENT OF VARIATION 17.3 (11.5-15.0); RED BLOOD CELL COUNT(AUTO) 2.19 MIL/uL (4.5-6.0); WHITE BLOOD COUNT (AUTO) 2.6 K/uL (4.3-11.0)
[2017-03-01 11:17] LABS: ALBUMIN 2.9 g/dL (3.4-5.0); BILIRUBIN,TOTAL 3.6 mg/dL (0.2-1.0); CALCIUM, SERUM 7.9 mg/dL (8.5-10.1); CREATININE 0.7 mg/dL (0.6-1.3); POTASSIUM 4.1 mmol/L (3.5-5.1); TOTAL PROTEIN, SERUM 7.3 g/dL (6.4-8.2)
[2017-03-01 11:21] LABS: BAND % (MANUAL) 7 % (0.0-5.0); EOSINOPHILS % (MANUAL) 2 % (0-4); LYMPHOCYTES % (MANUAL) 13 % (16-48); MONOCYTES % (MANUAL) 6 % (0-11.0); NEUTROPHILS % (MANUAL) 72 (42-76)
[2017-03-01 11:23] LABS: D-DIMER 1.46 mg/L(FEU (0.17-0.50); INR 1.12 (0.87-1.13); PROTHROMBIN TIME 12.1 SECS (9.5-12.7)
[2017-03-01 16:00] VITALS: BP 120/71
[2017-03-01 16:19] VITALS: BP 120/71
--- NOTE | 2017-03-01 18:55 | NUR ---
RN NOTES PATIENT ENDORSED TO NEXT SHIFT IN STABLE CONDITION WITH BREATHING NORMAL, EVEN AND UNLABORED. NO SOB NOTED. NO ACUTE DISTRESS NOTED. KEPT CLEAN, DRY AND COMFORTABLE. ALL NEEDS ATTENDED. SAFETY MEASURE OBSERVED. CALL LIGHT WITH IN REACH. WILL CONT TO MONITOR.
--- NOTE | 2017-03-01 19:56 | NUR ---
RN INITIAL NOTE ; PT ON THE BED RESTING WITHOUT ANY DISTRESS . A/O X 4 , BREATHING EVEN AND UNLABORED ON ROOM AIR . SILVIO MIDLINE INTACT AND PATENT . C/O PAIN 11/30, NON PHARMACOLOGICAL INTERVENTIONS APPLIED. WILL GIVE PAIN MEDS . CONTINENT TO BOWEL/BLADDER . CALL LIGHT WITHIN REACH . WILL CONTINUE TO MONITOR .
[2017-03-01 20:00] VITALS: BP 101/57
--- NOTE | 2017-03-01 21:35 | NUR ---
RN NOTE; PRN DILAUDID 0.5 MG IV GIVEN FOR LEFT FOOT PAIN LEVEL 8/10 , TOLERATED WELL AT THIS TIME. WILL CONTINUE TO MONITOR.
--- NOTE | 2017-03-01 22:20 | NUR ---
RN NOTE; PRN AMBIEN 5 MG PO GIVEN PER PT REQUEST FOR INSOMNIA , TOLERATED WELL AT THIS TIME . WILL REASSESS
--- NOTE | 2017-03-02 03:45 | NUR ---
RN NOTE; PRN DILAUDID 0.5 MG IV GIVEN FOR LEFT FOOT PAIN LEVEL 8/10 , TOLERATED WELL AT THIS TIME. WILL CONTINUE TO MONITOR.
[2017-03-02 04:00] VITALS: BP 89/51
[2017-03-02 08:00] VITALS: BP 91/48
--- NOTE | 2017-03-02 08:30 | NUR ---
RN NOTE PATIENT HAS REFUSED ALL HIV/ AIDS MEDICATION STATES HE NEEDS TO SPEAK WITH HIS PRIMARY PHYSICIAN HE STATES HE BELIEVES THE MEDICATIONS HE IS RECEIVING HERE ARE DIFFERENT THAN HIS NORMAL MEDICATIONS WHEN HE IS AT HOME. PT STATES HE WILL CALL PCP IN THE AM TO VERIFY ALL MEDICATION . PATIENT ALSO HAS DARK AUTUMN URINE WITH FOUL SMELL. ARCHIE DOWNS NOTIFIED NO ACTION AT THIS TIME RN WILL CONTINUE TO MONITOR
--- NOTE | 2017-03-02 08:30 | NUR ---
RN INITIAL NOTE ; PT IN THE BED RESTING WITHOUT ANY DISTRESS . A/O X 3-4 , BREATHING EVEN AND UNLABORED ON ROOM AIR . SILVIO MIDLINE INTACT AND PATENT . C/O PAIN 7/10 LEFT LOWER EXTREMITY , NON PHARMACOLOGICAL INTERVENTIONS ATTEMPTED NO RELIEF NOTED . WILL GIVE PAIN MEDS . CONTINENT TO BOWEL/BLADDER USES URINAL . CALL LIGHT WITHIN REACH . RN WILL CONTINUE TO MONITOR .
[2017-03-02 16:00] VITALS: BP_SYST 100; BP_SYST 165; BP_DIAS 60; BP_DIAS 78
--- NOTE | 2017-03-02 16:29 | NUR ---
RN NOTE RN TRANSFERRED CARE TO DANYELEL ROMEO DUE TO PATIENT ACUITY LEVEL CHANGES. PATIENT STABLE;E ALL PM CARE RENDERED PATIENT HELPED WITH REPOSTIONING PAIN MEDICATION ADMINISTERED PER PATIENTS REQUEST ALL QUESTION ANSWERED PATIENT STABLE AND WITHOUT DISTRESS AT THIS TIME
--- NOTE | 2017-03-02 16:30 | NUR ---
RN NOTES RECEIVED PT FROM KIMBER[facility] [id number], PT RESTING IN BED ON ROOM AIR NO DISTRESS NOTED. SILVIO MIDLINE DRESSING DRY AND INTACT. PAIN MEDICATIONS JUST GIVEN BY LUCINA, NO COMPLAINTS OF PAIN AT THE MOMENT. CALL LIGHT WITHIN REACH, SIDE RAILS UPX3, BED LOCKED AND IN LOWEST POSITION WILL CONT TO MONITOR.
--- NOTE | 2017-03-02 18:40 | NUR ---
RN NOTES PTS RESTING COMFORTABLY IN BED, NO DISTRESS OR SOB NOTED. NO SIGNIFICANT CHANGES, BLOOD CULTURES ORDERED, DRAW BY LAB. WILL ENDORSE TO ONCOMING SHIFT.
--- NOTE | 2017-03-02 19:57 | NUR ---
MS/RN OPENING NOTES PATIENT IN BED, ALERT, AWAKE, ABLE TO VERBALIZE NEEDS. VERBALIZED NEED TO HAVE SOME SANDWICH AND COOPERATIVE W/ LAB DRAW, LEFT AC LINE PATENT. VERBALIZED PAIN AND PRN NORCO 10-325 MG DUE. WILL ADMINISTER IV ATB, MANDA CONTINUE MONITOR. HAND HYGIENE AND INFECTION CONTROL MEASURES PROVIDED. CALL LIGHTS WITHIN REACH AND WILL CONTINUE MONITORING.
[2017-03-02 20:00] VITALS: BP 94/55
[2017-03-02 20:01] VITALS: BP 94/55
[2017-03-02 20:06] LABS: BASOPHILS % (AUTO) 0.4 % (0.0-2.0); EOSINOPHILS # (AUTO) 0.1 /CMM (0.0-0.7); EOSINOPHILS % (AUTO) 4.9 % (0.0-6.0); LYMPHOCYTES # (AUTO) 0.3 /CMM (0.8-4.8); LYMPHOCYTES % (AUTO) 20.4 % (20.0-44.0); MEAN CORPUSCULAR HEMOGLOBIN 35 PG (26.0-33.0); MEAN CORPUSCULAR HGB CONC 34 g/dl (31.0-36.0); MEAN CORPUSCULAR VOLUME 103 fL (80-96); MONOCYTES # (AUTO) 0.1 /CMM (0.1-1.30); MONOCYTES % (AUTO) 5.2 % (2.0-12.0); NEUTROPHILS # (AUTO) 0.9 /CMM (1.8-8.9); NEUTROPHILS % (AUTO) 69.1 % (43.0-81.0); PLATELET COUNT (AUTO) 77 /CMM (150-450); RDW COEFFICIENT OF VARIATION 15.9 (11.5-15.0)
[2017-03-02 20:20] LABS: WHITE BLOOD COUNT (AUTO) 1.4 K/uL (4.3-11.0)
[2017-03-02 20:21] LABS: HEMATOCRIT 16 % (39-51); HEMOGLOBIN 5.5 g/dL (13.5-17.5); RED BLOOD CELL COUNT(AUTO) 1.55 MIL/uL (4.5-6.0)
--- NOTE | 2017-03-02 20:24 | NUR ---
MS/RN NOTES CRITICAL LAB REPORTED BY BOYD Zimmer/ HGB LEVEL 5.5, WBC 1.4, HCT- 16 CALLED ANTONIO GOODSON AWAITING FOR RETURN CALL TOUR MANAGER MD RODRIGUEZ.
--- NOTE | 2017-03-02 20:30 | NUR ---
ms/rn notes DR venegas called and gave order regarding low hgb level critical 5.5 to transfuse 2 pack rbc after 1 pack rbc administer to request cbc and recheck and give another pack rbc if hgb level less than 7.
[2017-03-02 21:34] LABS: BAND % (MANUAL) 10 % (0.0-5.0); EOSINOPHILS % (MANUAL) 4 % (0-4); LYMPHOCYTES % (MANUAL) 16 % (16-48); MONOCYTES % (MANUAL) 8 % (0-11.0); NEUTROPHILS % (MANUAL) 62 (42-76)
[2017-03-03] VITALS (12 sets, daily range): BP systolic 97–144; BP diastolic 58–87
--- NOTE | 2017-03-03 | NUR ---
RN NOTES MIDLINE DRESSING NOTED TO BE SOILED. DRESSING CHANGED, PATIENT TOLERATED PROCEDURE WELL
--- NOTE | 2017-03-03 02:17 | NUR ---
ms/rn notes patient verbalized pain level of 8/10 on left knee, will monitor pain effectiveness after prn norco 10-325 mg po given
--- NOTE | 2017-03-03 06:16 | NUR ---
ms/rn closing notes patient resting comfortably in bed, able to verbalize needs at all times, pain management monitoring, no bleeding, labs draw , cooperative to care, respirations even and unlabored, call lights within reach, bed in lock position, provide fluids, will endorse to am rn regarding plan of care.
[2017-03-03 06:42] LABS: CALCIUM, SERUM 7.7 mg/dL (8.5-10.1); CREATININE 0.8 mg/dL (0.6-1.3); POTASSIUM 3.7 mmol/L (3.5-5.1)
[2017-03-03 07:07] LABS: EOSINOPHILS # (AUTO) 0.1 /CMM (0.0-0.7); LYMPHOCYTES # (AUTO) 0.2 /CMM (0.8-4.8)
[2017-03-03 07:24] LABS: BASOPHILS % (AUTO) 0.7 % (0.0-2.0); EOSINOPHILS % (AUTO) 5.6 % (0.0-6.0); LYMPHOCYTES % (AUTO) 14.8 % (20.0-44.0); MEAN CORPUSCULAR HEMOGLOBIN 32 PG (26.0-33.0); MEAN CORPUSCULAR HGB CONC 33 g/dl (31.0-36.0); MEAN CORPUSCULAR VOLUME 96 fL (80-96); MONOCYTES # (AUTO) 0.3 /CMM (0.1-1.30); MONOCYTES % (AUTO) 18.1 % (2.0-12.0); NEUTROPHILS % (AUTO) 60.8 % (43.0-81.0); PLATELET COUNT (AUTO) 76 /CMM (150-450); RDW COEFFICIENT OF VARIATION 16.9 (11.5-15.0)
[2017-03-03 07:27] LABS: RED BLOOD CELL COUNT(AUTO) 1.78 MIL/uL (4.5-6.0)
[2017-03-03 07:30] LABS: HEMATOCRIT 17 % (39-51); HEMOGLOBIN 5.6 g/dL (13.5-17.5); WHITE BLOOD COUNT (AUTO) 1.7 K/uL (4.3-11.0)
--- NOTE | 2017-03-03 07:35 | NUR ---
RN NOTES RECEIVED PT IN BED RESTING WITHOUT ANY DISTRESS . A/O X 3-4 , BREATHING EVEN AND UNLABORED ON ROOM AIR . SILVIO MIDLINE INTACT AND PATENT ONGOING IV NS RUNNING TKO. S/P PAIN MED ADMINISTRATION, WILL MONITOR FOR EFFECTIVENESS, ALL PERSONAL BELONGINGS WITHIN REACH. SAFETY MAINTAINED, CALL LIGHT WITHIN REACH . WILL CONTINUE TO MONITOR .
[2017-03-03 07:58] LABS: BAND % (MANUAL) 8 % (0.0-5.0); EOSINOPHILS % (MANUAL) 3 % (0-4); LYMPHOCYTES % (MANUAL) 23 % (16-48); MONOCYTES % (MANUAL) 6 % (0-11.0); NEUTROPHILS % (MANUAL) 60 (42-76)
--- NOTE | 2017-03-03 10:35 | NUR ---
RN NOTES PT NOTED WITH C/O LLE PAIN 8/O, DILAUDID 0.5MG PRN GIVEN, WILL MONITOR FOR EFFECTIVENESS. PT INFORMED THAT HE CAN RECEIVE HIS NEXT PAIN MED DOSE AT 1435, PT VERBALIZED UNDERSTANDING
--- NOTE | 2017-03-03 12:05 | NUR ---
RN NOTES PT IN ROOM RESTING COMFORTABLY, ASSESSED FOR PAIN PT VERBALIZED PAIN MED HELPED WITH HIS PAIN. URINAL KEPT AT BEDSIDE. ALL NEEDS ATTENDED. CALL LIGHT WITHIN REACH.
--- NOTE | 2017-03-03 13:17 | NUR ---
RN NOTE TRANSFER OF CARE REPORT GIVEN VIA ANTOINE BASSETT. RN RECEIVED PT IN BED AWAKE AND OREIENTED X 3-4 WITHOUT ANY DISTRESS. BREATHING EVEN AND UNLABORED ON ROOM AIR . SILVIO MIDLINE INTACT AND PATENT ONGOING IV NS RUNNING TKO. PATIENT STATES CONSTANT PAIN WHEN AVALIABLE RN WILL ASSESS PAIN RATE AND ADMINISTER PAIN MEDICATION PER PATIENT REQUEST RN WILL CONTINUE TO MONITOR FOR EFFECTIVENESS, ALL PERSONAL BELONGINGS WITHIN REACH. SAFETY MAINTAINED, CALL LIGHT WITHIN REACH . RN WILL CONTINUE TO MONITOR .
--- NOTE | 2017-03-03 13:27 | NUR ---
RN NOTES REPORT GIVEN TO ARVIND BASSETT FOR CONTINUITY OF CARE. ALL DUE MEDS GIVEN AT THIS TIME. VS STABLE.
--- NOTE | 2017-03-03 15:58 | NUR ---
RN Note PATIENT STATES SUDDEN CHILLS DURING BLOOD ADMINISTRATION. RN STOPPED THE TRANSFUSION IMMEDIATELY. CONTACTED ARCHIE DOWNS AND ALSO LAB , RN ADVISED TO CONTINUE WITH THE BLOOD TRANSFUSION AND ADMINISTER TYLENOL TO THE PATIENT . ARCHIE DOWNS STATES THIS IS NOT A REACTION TO THE BLOOD TRANSFUSION RN ACKNOWLEDGED AND WILL FOLLOW PLASTIC CNC MACHINE OPERATOR ORDERS. CHARGE NURSE NOTIFIED ABOUT THE INCIDENT.
--- NOTE | 2017-03-03 19:05 | NUR ---
MS RN OPENING NOTES RECEIVED REPORT FROM ARVIND BASSETT. PATIENT A/A/O X3-4. BREATHING EVEN AND UNLABORED, ON ROOM AIR. DENIES SOB OR DIFFICULTY BREATHING. PULSES PRESENT. SKIN WARM TO TOUCH W/ DRESSINGS INTACT. BOWEL SOUNDS PRESENT IN ALL QUADRANTS. RIGHT UPPER ARM MIDLINE INTACT AND PATENT W/ DRESSING CDI, ON TKO. DENIES ANY N/V/D. SAFETY MEASURES IN PLACE W/ SIDE RAILS UP, BED LOCKED IN LOWEST POSITION, CALL LIGHT WITHIN REACH. WILL CONTINUE TO MONITOR.
--- NOTE | 2017-03-03 19:38 | NUR ---
RN END OF SHIFT NOTE PATIENT OVERALL STABLE AT THIS TIME. ALL MEDICATION ACCEPTED BY PATIENT RENDERED PATIENT REFUSED ALL HIV MEDICATION AND ALSO SOME NEW MEDICATION ORDERED FOR TODAY , RN REVIEWED ALL MEDICATIONS AND WENT THROUGH EDUCATION ON THE MEDICATIONS AND SIDE EFFECTS ACKNOWLEDGED BUT STATES HE NEEDS TO SPEAK WITH HIS PRIMARY PHYSICIAN . PATIENT GIVEN 1 BAG OF THE 2 RBCS ORDERED 2ND BAG ENDORSED TO PM SHIFT POST LAB DRAW TO CHECK H/H LEVEL. ALSO PATIENT RECEIVED PM SQ INJECTION DR. CENTENO NOTIFIED AND STATED THAT IT IS OK AND SHE IS CURRENTLY PLACING ORDERS PATIENT HELPED WITH REPOSITIONING PAIN MEDICATION ADMINISTERED PER PATIENTS REQUEST ALL QUESTION ANSWERED PATIENT STABLE AND WITHOUT DISTRESS AT THIS TIME RN EXPEIRENCED SOME ISSUES DURING MEDICATION ADMINISTRATION WITH THE COMPUTER SYSTEM CHIEF LOCK TENDER OPERATOR ASHLEY PLACED ORDER TO ENGINEERING FOR THE AM.
[2017-03-03 21:03] LABS: HEMOGLOBIN 6.1 g/dL (13.5-17.5)
[2017-03-03 21:50] LABS: D-DIMER 0.86 mg/L(FEU (0.17-0.50); INR 1.17 (0.87-1.13); PROTHROMBIN TIME 12.7 SECS (9.5-12.7)
--- NOTE | 2017-03-03 23:24 | NUR ---
RN NOTES 2ND UNIT OF PRBC STARTED. CHECKED AND VERIFIED W/ 2ND RN. NO INITIAL REACTIONS NOTED.
[2017-03-04] VITALS (13 sets, daily range): BP systolic 94–136; BP diastolic 56–69
--- NOTE | 2017-03-04 02:20 | NUR ---
RN NOTES 2ND UNIT OF PRBC TRANSFUSED W/ NO ADVERSE REACTIONS NOTED. PATIENT TOLERATED WELL.
--- NOTE | 2017-03-04 02:20 | NUR ---
RN NOTES BLOOD TRANSFUSION ENDED. NO ADVERSE REACTIONS NOTED. PATIENT TOLERATED WELL.
[2017-03-04 07:49] LABS: APPEARANCE,URINE CLEAR (CLEAR); BILIRUBIN,URINE NEGATIVE (NEGATIVE); BLOOD, URINE NEGATIVE Ery/uL (NEGATIVE); KETONES,URINE NEGATIVE (NEGATIVE); LEUKOCYTE ESTERASE ,URINE NEGATIVE (NEGATIVE); NITRITE, URINE NEGATIVE (NEGATIVE); PH,URINE 6.5 (5.0-8.0); PROTEIN,URINE NEGATIVE (NEGATIVE); UGLUCOSE NEGATIVE (NEGATIVE); UROBILINOGEN,URINE 0.2 EU/dL (0.2)
[2017-03-04 07:52] LABS: COLOR,URINE DARK YELLOW (YELLOW)
--- NOTE | 2017-03-04 10:42 | NUR ---
ZOEY received a call back from pt's caser up Adrienne at [facility] [phone]. ZOEY informed him that pt. continues to be hospitalized due to having low H&H and is receiving blood transfusions. Pt. is also refusing his HIV medications at this time. Adrienne informed ZOEY, he will try to come by and visit with pt. today.
[2017-03-04 11:37] LABS: BASOPHILS % (AUTO) 0.7 % (0.0-2.0); EOSINOPHILS # (AUTO) 0.1 /CMM (0.0-0.7); EOSINOPHILS % (AUTO) 4.9 % (0.0-6.0); LYMPHOCYTES # (AUTO) 0.2 /CMM (0.8-4.8); LYMPHOCYTES % (AUTO) 11.8 % (20.0-44.0); MEAN CORPUSCULAR HEMOGLOBIN 34 PG (26.0-33.0); MEAN CORPUSCULAR HGB CONC 33 g/dl (31.0-36.0); MEAN CORPUSCULAR VOLUME 102 fL (80-96); MONOCYTES # (AUTO) 0.2 /CMM (0.1-1.30); NEUTROPHILS # (AUTO) 1.4 /CMM (1.8-8.9); NEUTROPHILS % (AUTO) 73.6 % (43.0-81.0); PLATELET COUNT (AUTO) 57 /CMM (150-450); RDW COEFFICIENT OF VARIATION 17.3 (11.5-15.0)
[2017-03-04 11:47] LABS: RED BLOOD CELL COUNT(AUTO) 1.64 MIL/uL (4.5-6.0)
[2017-03-04 11:48] LABS: HEMATOCRIT 17 % (39-51); HEMOGLOBIN 5.6 g/dL (13.5-17.5); WHITE BLOOD COUNT (AUTO) 1.9 K/uL (4.3-11.0)
[2017-03-04 12:02] LABS: CALCIUM, SERUM 7.9 mg/dL (8.5-10.1); CREATININE 0.8 mg/dL (0.6-1.3); POTASSIUM 3.9 mmol/L (3.5-5.1)
[2017-03-04 12:22] LABS: BAND % (MANUAL) 6 % (0.0-5.0); EOSINOPHILS % (MANUAL) 7 % (0-4); LYMPHOCYTES % (MANUAL) 14 % (16-48); MONOCYTES % (MANUAL) 11 % (0-11.0); NEUTROPHILS % (MANUAL) 62 (42-76)
--- NOTE | 2017-03-04 16:16 | NUR ---
ZOEY and manager rn case Albina and Lyla met with pt. bedside per his request. Pt. states he is willing to go back to [facility] board and care. ZOEY informed him that he was evicted from the board and care, however pt. states, " that's not true, and I will call [facility] myself." Pt. also wanted the phone number to [facility] clinic in [place]. ZOEY gave pt. the [facility] clinic phone number . Pt. states, he will most likely go to the [facility] clinic in [place] upon discharge to get his medications. [facility] address is [address] [place] [address], [address], [place] [address]. Case management to look into board and care facilities that [facility] insurance might be willing to fund. ZOEY and manager rn case to follow up with pt. tomorrow regarding discharge planning.
--- NOTE | 2017-03-04 19:07 | NUR ---
RN CLOSING NOTE CARRIED OUT ALL MD ORDERS. PATIENT KEPT CLEAN AND DRY. ALL NEEDS ANTICIPATED. WILL GIVE REPORT TO PM RN FOR SUNNY.
--- NOTE | 2017-03-04 20:05 | NUR ---
MS RN NOTE PT IN BED AWAKE. C/O PAIN IN LT KNEE 11/30, NORCO 1 TAB PO GIVEN FOR PAIN. ALSO STARTED 1ST UNIT OF PRBC ORDERED AND INFUSE AT 110 ML/HR. NO S/S OF INFILTRATION NOTED. NO A/R NOTED. ALL NEEDS ATTENDED. SIDE RAILS UP X 2 AND CALL LIGHT WITHIN REACH. VSS. CONTINUE TO MONITOR HIM.
[2017-03-04 22:44] LABS: *HGB 3.9
[2017-03-04 22:45] LABS: *HCT 12.1
--- NOTE | 2017-03-04 23:33 | NUR ---
MS RN NOTE FIRST UNIT OF PRBC FINISHED. VSS. NO FLUID OVERLOAD NOTED.
[2017-03-05] VITALS (10 sets, daily range): BP systolic 100–111; BP diastolic 55–72
--- NOTE | 2017-03-05 00:30 | NUR ---
MS RN NOTE LAB TACH DRAW BLOOD FOR H/H. WILL FOLLOW UP WITH THE RESULT.
[2017-03-05 01:17] LABS: HEMOGLOBIN 5.9 g/dL (13.5-17.5)
--- NOTE | 2017-03-05 01:20 | NUR ---
MS RN NOTE H/H RESULT 5.03/09 DR MICHELE INFORMED, ACCORDING TO MD MIGUEL TO GIVE SECOND UNIT AND REPEAT H/H AFTER 1 HR OF SECOND UNIT OF PRBC. ORDER NOTED AND CARRIED OUT.
--- NOTE | 2017-03-05 02:09 | NUR ---
MS RN NOTE 2ND UNIT OF PRBC STARTED. PT IN ON DISTRESS. VSS. CONTINUE TO MONITOR HIM.
--- NOTE | 2017-03-05 06:38 | NUR ---
MS RN NOTE PT IN BED ASLEEP, AROUSABLE. NO DISTRESS OR DISCOMFORT NOTED. DENIES PAIN AT THIS TIME. MEDICATED HIM FOR PAIN DURING THE SHIFT. ALL NEEDS ATTENDED. SIDE RAILS UP X 2 AND CALL LIGHT WITHIN REACH. WILL ENDORSE TO DAY SHIFT NURSE FOR CONTINUE TO CARE.
[2017-03-05 07:30] LABS: BASOPHILS % (AUTO) 0.3 % (0.0-2.0); EOSINOPHILS # (AUTO) 0.1 /CMM (0.0-0.7); EOSINOPHILS % (AUTO) 1.9 % (0.0-6.0); HEMOGLOBIN 7.1 g/dL (13.5-17.5); LYMPHOCYTES # (AUTO) 0.3 /CMM (0.8-4.8); LYMPHOCYTES % (AUTO) 6.6 % (20.0-44.0); MEAN CORPUSCULAR HEMOGLOBIN 38 PG (26.0-33.0); MEAN CORPUSCULAR HGB CONC 35 g/dl (31.0-36.0); MEAN CORPUSCULAR VOLUME 107 fL (80-96); MONOCYTES # (AUTO) 0.3 /CMM (0.1-1.30); MONOCYTES % (AUTO) 8.2 % (2.0-12.0); NEUTROPHILS # (AUTO) 3.2 /CMM (1.8-8.9); PLATELET COUNT (AUTO) 78 /CMM (150-450); RDW COEFFICIENT OF VARIATION 17.2 (11.5-15.0); WHITE BLOOD COUNT (AUTO) 3.9 K/uL (4.3-11.0)
[2017-03-05 07:38] LABS: RED BLOOD CELL COUNT(AUTO) 1.88 MIL/uL (4.5-6.0)
[2017-03-05 07:44] LABS: HEMATOCRIT 20 % (39-51)
[2017-03-05 07:52] LABS: ALBUMIN 2.8 g/dL (3.4-5.0); BILIRUBIN,TOTAL 3.2 mg/dL (0.2-1.0); CALCIUM, SERUM 7.9 mg/dL (8.5-10.1); CREATININE 0.7 mg/dL (0.6-1.3); POTASSIUM 4.9 mmol/L (3.5-5.1); TOTAL PROTEIN, SERUM 7.1 g/dL (6.4-8.2)
[2017-03-05 08:12] LABS: D-DIMER 0.67 mg/L(FEU (0.17-0.50); INR 1.15 (0.87-1.13); PROTHROMBIN TIME 12.4 SECS (9.5-12.7)
--- NOTE | 2017-03-05 09:30 | NUR ---
ZURI SANTANA RN: TRANSFER NOTE RECEIVED PT A/O X4. AGGRESSIVE AND UNCOOPERATIVE. YELLING ABOUT NOT WANTING TO BE IN THE HOSPITAL. INSTRUCTED THE PT TO REMAIN CALM. PT IS ON ISOLATION FOR MRSA OF NARES. PLACED IN ISOLATION CONTACT PRECAUTION. SLIVIO MIDLINE IN PLACE. DRESSING INTACT, PATENT. NO PAIN NOTED. PT REFUSED WOUND CONSULT. ALL RISKS AND BENEFITS EXPLAINED.
--- NOTE | 2017-03-05 10:00 | NUR ---
MED SURGE RN: NOTE PT REFUSED TO COOPERATE. PT IS YELLING AND USING INAPPROPRIATE LANGUAGE WITH ALL STAFF. PT DOES NOT WANT TO LISTEN TO NURSING EDUCATION PROVIDED. PT SAID HE DOES NOT WANT TO BE BOTHERED UNLESS IT IS FOR MEDICATIONS. PT REFUSED TO BE HOOKED ON IV FLUIDS. PT WANTS TO BE PUSH HIMSELF IN THE HALLWAYS. PT REFUSED BODY CHECK AND PICTURES. EDUCATED PT ABOUT THE RISKS AND BENEFITS. PT STATED HE DOES NOT CARE.
[2017-03-05 10:40] LABS: BAND % (MANUAL) 2 % (0.0-5.0); LYMPHOCYTES % (MANUAL) 8 % (16-48); MONOCYTES % (MANUAL) 5 % (0-11.0); NEUTROPHILS % (MANUAL) 85 (42-76)
--- NOTE | 2017-03-05 16:27 | NUR ---
ABOUT TO ASK THE PT ABOUT HIS PENTAMIDINE MEDICATION AND PT SCREAMED SAYING HE DOESN'T WANT TO BE BOTHERED.WILL TRY LATER.
--- NOTE | 2017-03-05 18:16 | NUR ---
MED SURGE RN: CLOSING NOTE PT A/O X4. ALL MEDICATIONS PROVIDED. NO ADVERSE REACTIONS NOTED. PT UNCOOPERATIVE AND YELLING AT ALL TIMES. PT DOES NOT CARE ABOUT EDUCATION PROVIDED BY STAFF. EXPLAINED TO PT TO REMAN CALM. PLACED IN CONTACT ISOLATION FOR MRSA NARES. RIGHT UPPER ARM MIDLINE. PATENT. NO REDNESS. DRESSING INTACT, CLEAR. PT REFUSED IV FLUIDS. ALL RISKS AND BENEFITS EXPLAINED. PT REFUSED WOUND CONSULT. DOES NOT WANT TO BE BOTHERED UNLESS IT IS FOR MEDICATIONS. RESTING IN BED COMFORTABLY. CALL LIGHT WITHIN REACH.
--- NOTE | 2017-03-05 19:25 | NUR ---
MS RN NOTE RECEIVED PATIENT FROM DAY SHIFT, PATIENT IS ALERT AND ORIENTEDX3, ON WHEELCHAIR ASKING FOR PAIN MED, RIGHT UPPER ARM MID LINE IS PATENT AND INTACT. NO S/S OF RESPIRATORY DISTRESS AT THIS TIME. SRX2, BED IN LOW POSITION, CALL LIGHT WITHIN REACH, WILL CONTINUE TO MONITOR.
--- NOTE | 2017-03-05 20:30 | NUR ---
MS RN MISTY GAVE REPORT TO JUAN ANTONIO DANYELLE COCHRAN FOR TRANSFER.
--- NOTE | 2017-03-05 21:00 | NUR ---
MS RN NOTE NORCO 10-325MG PO GIVEN PATIENT COMPLAINS OF PAIN ON HIS LEGS.
--- NOTE | 2017-03-05 21:15 | NUR ---
MS RN NOTE TRANSFERRED THE PATIENT TO JUAN ANTONIO UNIT PER ACLS PROTOCOL.
--- NOTE | 2017-03-05 21:30 | NUR ---
MS RN INITIAL NOTE PT RECEIVED FROM 3HEAD WATERS VIA WHEELCHAIR. PT ON ROOM AIR, A/O X4 AND ABLE TO MAKE NEEDS KNOWN. IV SITE SILVIO MIDLINE INTACT AND FLUSHING WELL. NO SOB NOTED. CALL LIGHT WITHIN REACH. SAFELY TRANSFERRED TO BED IN ROOM 110. WILL CONTINUE TO MONITOR.
[2017-03-06 04:00] VITALS: BP 99/62
[2017-03-06 07:18] LABS: CALCIUM, SERUM 7.7 mg/dL (8.5-10.1); CREATININE 0.8 mg/dL (0.6-1.3); POTASSIUM 4.2 mmol/L (3.5-5.1)
--- NOTE | 2017-03-06 07:30 | NUR ---
MS RN CLOSING NOTE PT C/O PAIN THROUGHOUT THE NIGHT. GAVE PRN'S AND SCHEDULED MEDS. PUT PT ON 2L OF O2 VIA NC DUE TO PT C/O SOB AND FOR COMFORT. PT REFUSED SCHEDULED MORPHINE 15MG PO. EXPLAINED RISKS AND BENEFITS X'S 3. PT STILL REFUSED. KEPT CLEAN AND DRY. CALL LIGHT WITHIN REACH. WILL ENDORSE TO NEXT SHIFT FOR CONTINUITY OF CARE.
[2017-03-06 07:55] LABS: BASOPHILS % (AUTO) 0.4 % (0.0-2.0); EOSINOPHILS % (AUTO) 1.2 % (0.0-6.0); LYMPHOCYTES # (AUTO) 0.3 /CMM (0.8-4.8); LYMPHOCYTES % (AUTO) 10.5 % (20.0-44.0); MEAN CORPUSCULAR HEMOGLOBIN 31 PG (26.0-33.0); MEAN CORPUSCULAR HGB CONC 34 g/dl (31.0-36.0); MEAN CORPUSCULAR VOLUME 93 fL (80-96); MONOCYTES # (AUTO) 0.1 /CMM (0.1-1.30); MONOCYTES % (AUTO) 1.8 % (2.0-12.0); NEUTROPHILS # (AUTO) 2.8 /CMM (1.8-8.9); NEUTROPHILS % (AUTO) 86.1 % (43.0-81.0); PLATELET COUNT (AUTO) 74 /CMM (150-450); RDW COEFFICIENT OF VARIATION 17.2 (11.5-15.0); WHITE BLOOD COUNT (AUTO) 3.3 K/uL (4.3-11.0)
[2017-03-06 08:00] VITALS: BP 109/56
[2017-03-06 08:02] LABS: RED BLOOD CELL COUNT(AUTO) 1.84 MIL/uL (4.5-6.0)
[2017-03-06 08:04] LABS: HEMOGLOBIN 5.8 g/dL (13.5-17.5)
[2017-03-06 08:05] LABS: HEMATOCRIT 17 % (39-51)
[2017-03-06 09:54] LABS: BAND % (MANUAL) 4 % (0.0-5.0); EOSINOPHILS % (MANUAL) 4 % (0-4); LYMPHOCYTES % (MANUAL) 5 % (16-48); MONOCYTES % (MANUAL) 4 % (0-11.0); NEUTROPHILS % (MANUAL) 83 (42-76)
--- NOTE | 2017-03-06 10:00 | NUR ---
RN NOTE PATIENT COMPLAINING OF GENERALIZED PAIN 10/10 UNRELIEVED BY PAIN MEDICATION. PATIENT REFUSING ALL PAIN MEDICATION EXCEPT DILAUDID Q3H, STATING THE OTHER MEDICATIONS DO NOT WORK FOR HIM. REFUSED ALL 0900 AM MEDICATION EXCEPT B12 AND THIAMINE. PATIENT REQUESTING ATIVAN R/T ANXIETY. DR. TATIANA MADDEN ROUNDING AT THIS TIME, INFORMED OF ALL THIS- MD ALSO AWARE OF HR AND TEMP. NO NEW ORDERS AT THIS TIME, MD SAID CONTINUE TO MONITOR. PATIENT THOROUGHLY EDUCATED ON RISKS OF MEDICATION NON-COMPLIANCE.
[2017-03-06 16:00] VITALS: BP 92/54
--- NOTE | 2017-03-06 16:37 | NUR ---
spoke to Dr. galeas about infection control plan of care and informed that patient refusing atx, anti fungal and ativiral after detailed education of risks. Requested MD to speak to patient about infection, culture and sensitivity. MD not on floor at this time.
--- NOTE | 2017-03-06 19:30 | NUR ---
END OF SHIFT HANDED OFF REPORT TO NIGHT NURSE. BREATHING EVEN AND UNLABORED. CHEST PAIN SUBSIDED WITH PAIN MEDICATION. VERBALIZING NEEDS CLEARLY. PATIENT REFUSED AFTERNOON ADL ASSISTANCE. PER LAB, BLOOD NOT READY YET. INFORMED NIGHT NURSE TO ADMIN WHEN BLOOD IS READY. CALL LIGHT IN REACH
[2017-03-06 20:00] VITALS: BP 94/52
[2017-03-06 21:18] VITALS: BP 101/69
[2017-03-07] VITALS (11 sets, daily range): BP systolic 95–130; BP diastolic 49–62
[2017-03-07 06:28] LABS: BASOPHILS % (AUTO) 0.1 % (0.0-2.0); EOSINOPHILS % (AUTO) 0.4 % (0.0-6.0); LYMPHOCYTES # (AUTO) 0.1 /CMM (0.8-4.8); LYMPHOCYTES % (AUTO) 4.1 % (20.0-44.0); MEAN CORPUSCULAR HEMOGLOBIN 38 PG (26.0-33.0); MEAN CORPUSCULAR HGB CONC 36 g/dl (31.0-36.0); MEAN CORPUSCULAR VOLUME 108 fL (80-96); MONOCYTES # (AUTO) 0.8 /CMM (0.1-1.30); NEUTROPHILS # (AUTO) 2.5 /CMM (1.8-8.9); NEUTROPHILS % (AUTO) 71.4 % (43.0-81.0); WHITE BLOOD COUNT (AUTO) 3.5 K/uL (4.3-11.0)
[2017-03-07 06:48] LABS: RED BLOOD CELL COUNT(AUTO) 1.55 MIL/uL (4.5-6.0)
[2017-03-07 06:50] LABS: HEMATOCRIT 17 % (39-51); HEMOGLOBIN 5.9 g/dL (13.5-17.5)
[2017-03-07 06:51] LABS: PLATELET COUNT (AUTO) 41 /CMM (150-450)
--- NOTE | 2017-03-07 08:25 | NUR ---
RN NOTES RECEIVED PATIENT IN BED WITH NO RESPIRATORY DISTRESS NOTED. COMPLAINT OF SEVERE PAIN, PRN MEDS GIVEN (DILAUDID, NORCO). SEVERE ANXIETY NOTED, NOT EFFECTIVE. TRANSFUSE 1 UNIT OF BLOOD WITH SIDE EFFECTS NOTED. TEMPERATURE FLACTUATES FROM 97.5 TO 102 WITHIN 1 HOUR AND GOES BACK TO 98 IN 1 HOUR, TYLENOL GIVEN FOR ELEVATED TEMP. ALL NEEDS ATTENDED. KEPT CLEAN AND DRY. WILL ENDORSE TO AM SHIFT FOR CONTINUITY OF CARE.
--- NOTE | 2017-03-07 08:28 | NUR ---
RN NOTES RECEIVED PT FROM NIGHT IN STABLE CONDITION. PT ANGRY YELLING FOR PAIN MEDICATIONS, EXPLAINED TO PT THEY ARE NOT DUE YET, WILL F/O WITH A&0X3, ON ROOM AIR NO SOB OR DISTRESS NOTED. SILVIO MIDLINE DRESSING DRY AND INTACT. SIDE RAILS UPX3, CALL LIGHT WITHIN REACH, BED LOCKED AND IN LOWEST POSITION, WILL CONT TO MONITOR.
[2017-03-07 09:01] LABS: LYMPHOCYTES % (MANUAL) 5 % (16-48); MONOCYTES % (MANUAL) 7 % (0-11.0); NEUTROPHILS % (MANUAL) 88 (42-76)
[2017-03-07 11:29] LABS: CALCIUM, SERUM 7.7 mg/dL (8.5-10.1); CREATININE 0.9 mg/dL (0.6-1.3); POTASSIUM 4.5 mmol/L (3.5-5.1)
--- NOTE | 2017-03-07 16:00 | NUR ---
RN NOTES PT WENT FROM 98.9 TO 100.[address] MADDEN AWARE, TYLENOL ORDERED AND RATE LOWERED. WILL CONT TO MONITOR.
--- NOTE | 2017-03-07 17:00 | NUR ---
RN NOTES PT STILL HAS 100.0 FEVER, WILL CONT TO MONITOR. ORDER TO CONTINUE BLOOD AND MONITOR.
--- NOTE | 2017-03-07 18:15 | NUR ---
RN NOTES PT NOTED TEMP 102. BLOOD TRANSFUSION STOPPED. DR MADDEN CALLED ND REPORTED TEMP WENT UP. PER DR MADDEN DO MI TRANSFUSION REACTION PROTOCOL. BAG SENT TO LAB FOR CROSS MATCHING PER PROTOCOL. WILL MONITOR PT
--- NOTE | 2017-03-07 18:50 | NUR ---
RN NOTE PT REFUSED TO GIVE URINE SAMPLE, PT REFUSED TO LET LAB DRAW
--- NOTE | 2017-03-07 19:00 | NUR ---
RN NOTES PT STILL AGITATED LAB AT BEDSIDE STILL ATTEMPTING TO DRAW BLOOD. REPORT ENDORSED TO ONCOMING SHIFT.
--- NOTE | 2017-03-07 19:44 | NUR ---
JUAN ANTONIO RN INCIDENT REPORT FILED, [id number]
--- NOTE | 2017-03-07 20:00 | NUR ---
RN INITIAL NOTE; PT ON THE BED YELLING FOR THE PAIN MEDS , EXPLAINED ABOUT WHEN HE IS DUE FOR IT. NON PHARMACOLOGICAL INTERVENTION APPLIED. A/O X 3 , BREATHING EVEN AND UNLABORED ON 2 LPM VIA NC . BLOOD DRAWN BY LABS FOR BLOOD TRANSFUSION REACTION . URINE SENT PER ORDER .SILVIO MIDLINE INTACT AND PATENT . BED IN THE LOWEST/LOCKED POSITION . SAFETY MEASURES APPLIED. CALL LIGHT WITHIN REACH . WILL CONTINUE TO MONITOR .
--- NOTE | 2017-03-07 21:15 | NUR ---
RN NOTE; PRN DILAUDID 0.5 MG IV GIVEN FOR KNEE PAIN LEVEL 9/10 , TOLERATED WELL AT THIS TIME. WILL REASSESS.
[2017-03-07 21:30] LABS: HEMOGLOBIN 5.3 g/dL (13.5-17.5)
--- NOTE | 2017-03-07 21:35 | NUR ---
RN NOTE; PRN ZOFRAN 4 MG IV GIVEN FOR C/O NAUSEA , TOLERATED WELL AT THIS TIME .WILL REASSESS.
--- NOTE | 2017-03-07 22:00 | NUR ---
RN NOTE; PT'S HGB/HCT NOTED 5.3 , TRANSFUSION REACTION BLOOD WORKUP STILL PENDING , WILL NOT BE ABLE TO TRANSFUSE BEFORE TRANSFUSION REACTION WORKUP RESULT COMES OUT. PER LAB ORACLE SOA ARCHITECT ,THE REPORT WILL PROBABLY COMES OUT IN AM . NO ACTIVE BLEEDING NOTED , WILL CONTINUE TO MONITOR .
[2017-03-07 22:14] LABS: APPEARANCE,URINE CLEAR (CLEAR); BILIRUBIN,URINE 3+ (NEGATIVE); BLOOD, URINE TRACE-INTA Ery/uL (NEGATIVE); COLOR,URINE DARK YELLO (YELLOW); KETONES,URINE NEGATIVE (NEGATIVE); LEUKOCYTE ESTERASE ,URINE NEGATIVE (NEGATIVE); NITRITE, URINE POSITIVE (NEGATIVE); PROTEIN,URINE 1+ mg/dl (NEGATIVE); UGLUCOSE NEGATIVE (NEGATIVE); UROBILINOGEN,URINE 0.2 EU/dL (0.2)
[2017-03-07 22:37] LABS: BACTERIA,URINE Rare /HPF (None Seen); RBC,URINE 0-2 /HPF (0-2); SQUAMOUS EPITHELIAL CELL,UR Few /HPF (None Seen); URINE AMORPHOUS URATE Few /HPF (None Seen); WBC,URINE NONE SEEN /HPF (0-3)
--- NOTE | 2017-03-08 00:20 | NUR ---
RN NOTE; PRN DILAUDID 0.5 MG IV GIVEN FOR KNEE PAIN LEVEL 9/10 , TOLERATED WELL AT THIS TIME. WILL REASSESS.
--- NOTE | 2017-03-08 01:37 | NUR ---
RN NOTE; PRN AMBIEN 5 MG PO GIVEN FOR INSOMNIA , TOLERATED WELL AT THIS TIME . WILL REASSESS
--- NOTE | 2017-03-08 03:20 | NUR ---
RN NOTE; PRN DILAUDID 0.5 MG IV GIVEN FOR KNEE PAIN LEVEL 9/10 , TOLERATED WELL AT THIS TIME. WILL REASSESS.
[2017-03-08 04:00] VITALS: BP 98/54
--- NOTE | 2017-03-08 07:01 | NUR ---
RN NOTE; PRN DILAUDID 0.5 MG IV GIVEN FOR KNEE PAIN LEVEL 9/10 , TOLERATED WELL AT THIS TIME. WILL REASSESS.
--- NOTE | 2017-03-08 07:05 | NUR ---
MS RN NOTE: RECEIVED PT RESTING IN BED, EASILY AROUSABLE TO NAME, A&OX3. ON 2LPM O2 VIA NC, RESPIRATIONS EVEN AND UNLABORED WITH NO SOB NOTED. SILVIO MIDLINE INTACT AND PATENT. BED LOW, LOCKED, X2 SIDERAILS UP WITH CALL LIGHT WITHIN REACH. ISOLATION PRECAUTIONS IN PLACE. WILL CONTINUE TO MONITOR .
--- NOTE | 2017-03-08 07:08 | NUR ---
RN EOS NOTE; ALL NEEDS ATTENDED PROMPTLY. CRYING , SCREAMING, FOR PAIN, PRN PAIN MEDS GIVEN NEEDED. KEPT CLEAN AND DRY , TRANSFUSION REACTION WORKUP STILL PENDING . ENDORSE TO NEXT SHIFT RN FOR CONTINUITY OF CARE.
[2017-03-08 08:00] VITALS: BP 92/53
[2017-03-08 11:45] LABS: BASOPHILS % (AUTO) 0.1 % (0.0-2.0); EOSINOPHILS % (AUTO) 0.1 % (0.0-6.0); LYMPHOCYTES # (AUTO) 0.1 /CMM (0.8-4.8); LYMPHOCYTES % (AUTO) 4.9 % (20.0-44.0); MEAN CORPUSCULAR HEMOGLOBIN 38 PG (26.0-33.0); MEAN CORPUSCULAR HGB CONC 35 g/dl (31.0-36.0); MEAN CORPUSCULAR VOLUME 110 fL (80-96); MONOCYTES % (AUTO) 2.1 % (2.0-12.0); NEUTROPHILS # (AUTO) 1.7 /CMM (1.8-8.9); NEUTROPHILS % (AUTO) 92.8 % (43.0-81.0); RDW COEFFICIENT OF VARIATION 16.6 (11.5-15.0)
[2017-03-08 11:46] LABS: ALBUMIN 2.5 g/dL (3.4-5.0); BILIRUBIN,TOTAL 8.7 mg/dL (0.2-1.0); CALCIUM, SERUM 7.8 mg/dL (8.5-10.1); POTASSIUM 4.9 mmol/L (3.5-5.1); TOTAL PROTEIN, SERUM 6.8 g/dL (6.4-8.2)
[2017-03-08 11:51] LABS: RED BLOOD CELL COUNT(AUTO) 1.19 MIL/uL (4.5-6.0)
[2017-03-08 12:00] LABS: HEMATOCRIT 13 % (39-51); HEMOGLOBIN 4.6 g/dL (13.5-17.5); PLATELET COUNT (AUTO) 36 /CMM (150-450); WHITE BLOOD COUNT (AUTO) 1.9 K/uL (4.3-11.0)
[2017-03-08 13:57] LABS: LYMPHOCYTES % (MANUAL) 5 % (16-48); NEUTROPHILS % (MANUAL) 95 (42-76)
[2017-03-08 16:00] VITALS: BP 91/52
[2017-03-08 17:29] LABS: INR 1.84 (0.87-1.13); PROTHROMBIN TIME 20.5 SECS (9.5-12.7)
--- NOTE | 2017-03-08 19:00 | NUR ---
MS RN NOTE: NO ACUTE CHANGES DURING SHIFT. PATIENT REMAINED A&OX3, PAIN MANAGED ORDERED. ON 2LPM O2 VIA NC. PENDING RESULTS FOR SEROLOGY. ORDERS CARRIED OUT. ISOLATION PRECAUTION IN PLACE. BED LOW, LOCKED, X2 SIDERAILS UP WITH CALL LIGHT WITHIN REACH. WILL ENDORSE TO HIGHWAY MAINTENANCE WORKER NURSE FOR SUNNY.
--- NOTE | 2017-03-08 19:30 | NUR ---
RN NOTES RECEIVED PATIENT IN BED AWAKE, AO X 3, ABLE TO MAKE NEEDS KNOWN. NO ACUTE DISTRESS NOTED. MONITORED FOR PAIN. IV SITE PATENT, INTACT; FLUSHED. SAFETY REMINDERS GIVEN. ON LOW BED WITH BILATERAL UPPER SIDE RAILS UP. CALL LIGHT WITHIN EASY REACH. CONTACT ISOLATION MAINTAINED. WILL CONTINUE TO MONITOR.
[2017-03-08 20:00] VITALS: BP 84/50
[2017-03-08 21:00] VITALS: BP 95/54
--- NOTE | 2017-03-09 01:41 | NUR ---
RN NOTES PATIENT VS TEMP 98.5 HR 98 BP 86/53 SPO2 99% ON 2L NC. DR. MICHELE MADE AWARE OF VS AND THAT PATIENT TAKES DILAUDID FOR PAIN; WITH NO NEW ORDERS. WILL CONTINUE TO MONITOR PATIENT.
[2017-03-09 04:00] VITALS: BP 90/53
--- NOTE | 2017-03-09 06:06 | NUR ---
RN NOTES PATIENT AWAKE. RESPIRATIONS EVEN. NO SIGNS OF PAIN NOTED. DUE MEDS GIVEN WITH NO ASE NOTED. NEEDS ATTENDED. SAFETY PRECAUTIONS AND COMFORT MEASURES IN PLACE. WILL GIVE REPORT TO DAY SHIFT FOR CONTINUITY OF CARE.
--- NOTE | 2017-03-09 07:35 | NUR ---
AM RN NOTE Received patient sleeping comfortably in his bed, on O2 2L/min via NC resp even and non-labored. IV site intact and patent. Bed in low locked position. Patient refused labs this AM and labor economics professor will come around 1100 per shift superintendent RN. Call light with in reach.
[2017-03-09 08:00] VITALS: BP 83/44
--- NOTE | 2017-03-09 08:00 | NUR ---
SKYE RN NOTE Patient's care endorsed to Amara BASSETT per CN.
--- NOTE | 2017-03-09 10:45 | NUR ---
RN NOTE PT REFUSED TO RECEIVE BLOOD TRANSFUSION. RISKS AND BENEFITS EXPLAINED. STILL REFUSED. PT CO OF PAIN UNRELIEVED BY DILAUDID 0.5 MG.
[2017-03-09 15:10] LABS: BASOPHILS % (AUTO) 0.1 % (0.0-2.0); EOSINOPHILS % (AUTO) 0.1 % (0.0-6.0); LYMPHOCYTES # (AUTO) 0.1 /CMM (0.8-4.8); LYMPHOCYTES % (AUTO) 6.9 % (20.0-44.0); MEAN CORPUSCULAR HEMOGLOBIN 34 PG (26.0-33.0); MEAN CORPUSCULAR HGB CONC 34 g/dl (31.0-36.0); MEAN CORPUSCULAR VOLUME 100 fL (80-96); MONOCYTES % (AUTO) 1.3 % (2.0-12.0); NEUTROPHILS # (AUTO) 1.1 /CMM (1.8-8.9); NEUTROPHILS % (AUTO) 91.6 % (43.0-81.0); PLATELET COUNT (AUTO) 51 /CMM (150-450); RDW COEFFICIENT OF VARIATION 16.7 (11.5-15.0)
[2017-03-09 15:18] LABS: CALCIUM, SERUM 8.3 mg/dL (8.5-10.1); CREATININE 0.9 mg/dL (0.6-1.3); POTASSIUM 5.4 mmol/L (3.5-5.1)
[2017-03-09 15:22] LABS: HEMATOCRIT 12 % (39-51); RED BLOOD CELL COUNT(AUTO) 1.18 MIL/uL (4.5-6.0); WHITE BLOOD COUNT (AUTO) 1.2 K/uL (4.3-11.0)
[2017-03-09 16:00] VITALS: BP 104/66
[2017-03-09 18:01] LABS: BAND % (MANUAL) 8 % (0.0-5.0); LYMPHOCYTES % (MANUAL) 10 % (16-48); MONOCYTES % (MANUAL) 2 % (0-11.0); NEUTROPHILS % (MANUAL) 80 (42-76)
[2017-03-09 20:00] VITALS: BP 92/55
--- NOTE | 2017-03-09 20:00 | NUR ---
MS RN NOTE PT IN BED AWAKE. A/O X 4, NO SOB NOTED. C/O PAIN IN LOWER BACK /10, DILAUDID 0.5 MG IVP GIVEN. SILVIO MIDLINE INTACT AND PATENT. NO S/S OF INFILTRATION NOTED. SIDE RAILS UP X 2 AND CALL LIGHT WITHIN REACH. VSS. PT IS BEING EVALUATED FOR HOSPICE CARE. ALL NEEDS ATTENDED. CONTINUE TO MONITOR HER.
--- NOTE | 2017-03-09 23:10 | NUR ---
MS RN NOTE PT C/O PAIN IN LOWER BACK 01/30, DILAUDID 0.5 MG IV GIVEN ALSO WANTS SLEEPING MED, AMBIEN 5 MG PO GIVEN. PT REFUSED TO TAKE MORPHINE SULFATE IR 15 MG AND WANTS DILAUDID IVP INSTEAD.
[2017-03-10 04:00] VITALS: BP 100/63
--- NOTE | 2017-03-10 06:56 | NUR ---
MS RN NOTE PT IN BED ASLEEP, AROUSABLE. NO DISTRESS OR DISCOMFORT NOTED. PAIN SUBSIDED. PAIN MED DILAUDID 0.5 MG GIVEN Q3H PER PT REQUEST FOR PAIN IN LOWER BACK. ALL NEEDS ATTENDED. SIDE RAILS UP X 2 AND CALL LIGHT WITHIN REACH. WILL ENDORSE TO DAY SHIFT NURSE FOR CONTINUE TO CARE.
--- NOTE | 2017-03-10 07:30 | NUR ---
INITIAL NOTE RESTING IN BED, BREATHING WNL. 04/01 PAIN, GENERALIZED. PT. GENERAL DISPOSITION HOSTILE. DISCUSSING PLAN OF CARE, PATIENT PASSIVE/ REFUSING. OFFERED COMFORT MEASURES AND REPOSITIONING, PATIENT REFUSED. PATIENT REQUESTING DILAUDID, WILL ADMIN WHEN DUE. CALL LIGHT IN REACH.
[2017-03-10 08:00] VITALS: BP 98/61
--- NOTE | 2017-03-10 12:52 | NUR ---
RN NOTE SEEN AND EXAMINED BY RENE DOWNS. PATIENT REFUSED BLOOD TRANSFUSION
--- NOTE | 2017-03-10 12:54 | NUR ---
RN NOTE DISCUSSED PLAN OF CARE WITH TURNER SPLITTER MACHINE OPERATOR AND PATIENT. AGREED DNR STATUS- ORDERED BY NOEL. KHOURY IN CHART. PATIENT VERBALIZED UNDERSTANDING.
[2017-03-10 16:00] VITALS: BP 97/59
--- NOTE | 2017-03-10 18:57 | NUR ---
END OF SHIFT PATIENT RESTING IN BED, VERBALIZING NEEDS, BREATHING EVEN AND UNLABORED. PATIENT WAS SEEN BY HOSPICE PACS SPECIALIST HOWEVER PATIENT IS UNDECIDED. PACS SPECIALIST STATED HE WILL RETURN TOMORROW. INFORMED SEED PRODUCTION FIELD SUPERVISOR NURSE. CALL LIGHT IN REACH.
[2017-03-10 20:00] VITALS: BP 106/65
--- NOTE | 2017-03-10 21:24 | NUR ---
RN:M/S: PT RECEIVED IN BED COMPLAINING OF PAIN 04/01. PT MEDICATED FOR BREAK THROUGH PAIN WITH NORCO. PT COMPLAINING OF ITCHINESS AND PRN BENADRYL GIVEN. PT REQUESTING DILAUDID FOR PAIN. MEDICATION GIVEN PER MD ORDERS. PT STATING THAT THIS DOSE DOES NOT WORK. PT INSTRUCTED THAT HE IS LIKELY TO HAVE DEVELOPED TOLERANCE TO MEDICATION DUE TO FREQUENT ADMIN. NEXT PAIN MEDICATION DUE AT 2300. PATIENT EDUCATED REGARDING PAIN MEDICATION AND NEXT SCHEDULED MEDICATION, WELL OTHER ALTERNATIVE INTERVENTIONS WE COULD TRY TO ALLEVIATE HIS PAIN. PT REMAINS NONCOMPLIANT AND DEMANDING. PT CONTINUES TO REFUSE BLOOD DRAW AND BLOOD TRANSFUSION. ATTEMPTED TO EDUCATE PT REGARDING POC WITH OUT SUCCESS. WILL CONTINUE TO MONITOR CLOSELY.
[2017-03-11 04:00] VITALS: BP 100/59
--- NOTE | 2017-03-11 07:25 | NUR ---
RN NOTES RECV'D REPORT FROM NOC RN. PT A&OX4. REFUSING LABS. 2LNC 98% O2 SATS. NON LABORED RESP. MED SURG PT. ABLE TO TURN SELF. DNR HOSPICE PT. PLAN FOR DC TO [facility]... REFUSING BLOOD TRANFUSION. RECIEVES EPO AND GRANSINA. MRSA ISOLATION PRECAUTIONS. DRUG SEEKING. BED IN LOW LOCKED POSITION. CALL LIGHT IN REACH. WILL CONT TO MONITOR CLOSELY.
[2017-03-11 08:00] VITALS: BP 94/79
[2017-03-11 10:39] VITALS: BP 94/79
--- NOTE | 2017-03-11 12:00 | NUR ---
RN NOTES PT SITTING UP AWAKE EATING LUNCH. DILAUDID AND NORCO EFFECTIVE FOR PAIN RELIEF. CALL LIGHT IN REACH. WILL CONT TO MONITOR CLOSELY.
--- NOTE | 2017-03-11 12:46 | NUR ---
RN NOTES PT REFUSAL TO HAVE MIDLINE DRSG CHANGED. LAST CHANGED 03/04/17. CDI.
[2017-03-11 16:00] VITALS: BP 104/65
--- NOTE | 2017-03-11 16:01 | NUR ---
RN NOTES PT SLEEPING FOLLOWING SCHEDULED MORPHINE PO AND KLONIPIN PO FOR ANXIETY. 2LNC O2 SATS 98%. EATING WELL. [facility] HOSPICE EVAL DONE TODAY. PT REFUSED BLD TRF DISCUSSED W/ MD. REFUSED LABS THIS AM. AM LABS ORDERED FOR TOMORROW. PT HAS BEEN COMPLIANT W/ MEDS THIS SHIFT. CALL LIGHT IN REACH. WILL CONT TO MONITOR CLOSELY. MRSA AND NEUTROPENIC PRECAUTIONS IN PLACE.
[2017-03-11 16:06] VITALS: BP 94/55
--- NOTE | 2017-03-11 18:00 | NUR ---
RN NOTES PT SLEEPING AT PRESENT. EATING WELL. VOIDS SUFFICIENT AMOUNT. NO LABORED RESP. CALL LIGHT IN REACH. BED IN LOW LOCKED POSITION. WILL CONT TO MONITOR CLOSELY.
[2017-03-11 20:00] VITALS: BP 109/66
--- NOTE | 2017-03-11 20:30 | NUR ---
RN NOTES RECEIVED THE PATIENT AWAKE ON BED, A/O X4. ON 2L NASAL CANNULA, SATURATING WELL, NO S/S OF RESP DISTRESS. PATIENT IS COMPLAINING ABOUT BILATERAL KNEE PAIN AND IS DEMANDING HIS PAIN MEDICATIONS. CONTINENT, ABLE TO USE URINAL. RIGHT UPPER ARM MIDLINE IS DIFFICULT TO FLUSH BUT PATENT, NO S/S OF INFILTRATION/INFECTION, DRESSING CDI. BED LOW AND LOCKED, SIDERAILS UP, CALL LIGHT WITHIN REACH. WILL MONITOR
[2017-03-12 04:00] VITALS: BP 99/64
--- NOTE | 2017-03-12 06:30 | NUR ---
RN NOTES PT REMAINS STABLE OF THE MOMENT. ALL DUE MEDS GIVEN, AM CARE PROVIDED. WILL ENDORSE CONTINUITY OF CARE TO AM RN
--- NOTE | 2017-03-12 07:59 | NUR ---
RN NOTE: PATIENT RECEIVED IN STABLE CONDITION ALERT AWAKE OX4. ABLE TO MAKE NEEDS KNOWN. ON 2LPM O2 VIA NC, NO S/S OF BREATHING DISTRESSED NOTED. CONTINENT TO B/B MOVEMENT. IV SITE INTACT & DRY. ABLE TO FLUSH WITH DIFFICULTY. SAFETY MEASURES OBSERVED. CALL LIGHT WITH IN REACH. ALL NEEDS ATTENDED. WILL CONTINUE TO MONITOR.
[2017-03-12 08:00] VITALS: BP_SYST 101; BP_SYST 107; BP_DIAS 58
[2017-03-12 09:18] LABS: CMV, IgG >10.00 U/mL (0.00-0.59); CMV, IgM <30.0 AU/mL (0.0-29.9)
[2017-03-12 16:00] VITALS: BP 106/63
[2017-03-12 17:45] LABS: BASOPHILS % (AUTO) 0.1 % (0.0-2.0); EOSINOPHILS % (AUTO) 0.1 % (0.0-6.0); LYMPHOCYTES # (AUTO) 0.1 /CMM (0.8-4.8); LYMPHOCYTES % (AUTO) 7.4 % (20.0-44.0); MEAN CORPUSCULAR HEMOGLOBIN 35 PG (26.0-33.0); MEAN CORPUSCULAR HGB CONC 34 g/dl (31.0-36.0); MEAN CORPUSCULAR VOLUME 103 fL (80-96); MONOCYTES # (AUTO) 0.1 /CMM (0.1-1.30); NEUTROPHILS # (AUTO) 1.7 /CMM (1.8-8.9); NEUTROPHILS % (AUTO) 89.4 % (43.0-81.0); PLATELET COUNT (AUTO) 57 /CMM (150-450); RDW COEFFICIENT OF VARIATION 15.7 (11.5-15.0)
[2017-03-12 17:50] LABS: HEMATOCRIT 11 % (39-51); HEMOGLOBIN 3.7 g/dL (13.5-17.5); RED BLOOD CELL COUNT(AUTO) 1.04 MIL/uL (4.5-6.0); WHITE BLOOD COUNT (AUTO) 1.9 K/uL (4.3-11.0)
[2017-03-12 17:56] LABS: CALCIUM, SERUM 8.1 mg/dL (8.5-10.1); POTASSIUM 4.7 mmol/L (3.5-5.1)
--- NOTE | 2017-03-12 18:34 | NUR ---
RN NOTE: RECEIVED CRITICAL LAB VALUE LOW H/H, PLATELET, WBC , INFORMED DR. CENTENO. RECEIVED ORDERS TO DO TRANSFUSE 2 UNIT OF PRBC. PT REFUSED TO SIGN CONSENT OF BLOOD TRANSFUSION, BLOOD DRAW FOR TYPE & SCREEN. SAID WANTS TO TALK TO 1ST. CHARGE NURSE AWARE, CALLING TO RENE FOR PATIENT REQUEST. EXPLAINED RISK & BENEFITS. RESPECT PATIENT RIGHTS.
--- NOTE | 2017-03-12 18:37 | NUR ---
PRIMARY RN EXPLAIN TO PT NEED TO REPEAT TYPE AND SCREEN AND NEED TO SIGN CONSENT AGAIN FOR BLOOD TRANSFUSION PATIENT GOT UPSET AND INSISTED TO TALK TO PHYSICIAN AGAIN.NOTIFIED RENE DOWNS NP AND VERBALIZED HE ALREADY EXPLAINED TO THE PT. THE NEED FOR TRANSFUSION.WILL HOLD BLOOD TRANSFUSION AGAIN SINCE PATIENT CHANGE HIS MIND AGAIN AND UNDECIDED TO GET BLOOD,WILL CONTINUE TO MONITOR AND EXPLAINED RISK OF NOT HAVING BLOOD TRANSFUSION,WILL CONTINUE TO FF. UP..
[2017-03-12 18:52] LABS: BAND % (MANUAL) 12 % (0.0-5.0); LYMPHOCYTES % (MANUAL) 12 % (16-48); MONOCYTES % (MANUAL) 5 % (0-11.0); NEUTROPHILS % (MANUAL) 71 (42-76)
--- NOTE | 2017-03-12 19:05 | NUR ---
RN NOTE: DURING SHIFT PT NOTED WITH C/O ABDOMINAL CRAMPING & GENERALIZED PAIN, CONTINUE ON PAIN MANAGEMENT MEDICATION ORDERED.
[2017-03-12 20:00] VITALS: BP 106/61
--- NOTE | 2017-03-12 20:30 | NUR ---
RN NOTES RECEIVED PT AWAKE ON BED. AOX3 PALE LOOKING WARMTH TO TOUCH. WITH O2 2LPM VIA NC TOLERATED WELL SATING 99%. NO ACUTE RESP DISTRESS. B IV SITE ON SILVIO MIDLINE ABLE TO FLUSHED NO REDNESS NO SWELLING. AFEBRILE TEMP 97.9 DEG FAHRENHEIT. REFUSED TO SIGNED CONSENT FOR BLOOD TRANSFUSION AND TO DRAW TYPE AND SCREEN PER PREVIOUS NURSE. ENCOURAGED AND OFFERED CONSENT EXPLAINED RISK AND BENEFITS. PER PATIENT HE WANTS TO SEE THE DOCTOR AND EXPLAINED WHAT HAPPEN FOR WHAT HE SAID REGARDING CEDARS ABOUT [facility] THERAPY THAT HE WAS GETTING BEFORE. CALLED AND LEFT A MESSAGE TO [employer] MD. WILL WAIT TO CALL BACK.
--- NOTE | 2017-03-12 23:05 | NUR ---
RN NOTES CALLED AND SPOKE TO DR. HEREDIA THAT PATIENT REFUSED TO DO TYPE AND SCREEN OFFERED AND EXPLAINED THE RISK AND BENEFITS AND ABOUT BLOOD TRANSFUSION, TYPE SCREEN, AND EDUCATED REGARDING PLAN OF CARE BUT PATIENT STILL REFUSED AND WANTED TO SEE THE MD.
[2017-03-13] VITALS (8 sets, daily range): BP systolic 94–109; BP diastolic 52–63
--- NOTE | 2017-03-13 07:10 | NUR ---
RN NOTES RECEIVED PATIENT AOX3 , NOT IN ACUTE DISTRESS , DENIES SOB AT THIS TIME , WEAK AND LETHARGIC , ON 2LPM NC SPO2 OF 95% , SILVIO MIDLINE PATENT AND INTACT WITH NS @ TKO , ALL NEEDS ATTENDED , BED ON LOW AND LOCKED POSITION , SIDE RAILS X2 , CALL LIGHT WITHIN REACH , HOB @ 35 , WILL CONTINUE TO MONITOR .
--- NOTE | 2017-03-13 07:12 | NUR ---
RN NOTES PATIENT REMAINED ALERT ORIENTED X4 VERBALIZED NEEDS. CONSTANTLY COMPLAINING OF PAIN AT SCALE OF 8-9/10 SCALE. INCONTINENT CARE RENDERED FOR BOWEL. USED URINAL FOR BLADDER. MAINTAINED ADEQ. I/OS. STILL REFUSED FOR BLOOD TEST. NO SIGNIFICANT CHANGES NOTED. AFEBRILE. VS WNL. KEPT PT CLEAN AND DRY. ENDORSED IN AM SHIFT REGARDING PATIENT CONCERN TO HIS MEDICINE AND DIAGNOSIS. ENDORSED CONTINUITY OF CARE TO AM NURSE.
--- NOTE | 2017-03-13 07:59 | NUR ---
BAFFLE INSTALLER NOTES EXPLAINED TO THE PATIENT THAT HE NEEDS TO HAVE 2 UNITS BLOOD TRANSFUSION DUE TO LOW H/H , REFUSED TO OBTAIN TYPE AND SCREEN HE WANTS TO TALK TO THE DR REGARDING STEROID THERAPY THAT WAS DONE IN [facility] , EXPLAINED THE BENEFITS AND RISK OF BLOOD TRANSFUSION , VERBALIZED UNDERSTANDING STILL REFUSES .
--- NOTE | 2017-03-13 09:17 | NUR ---
RN NOTES COLACE 100MG HELD PT HAVING DIARRHEA .
--- NOTE | 2017-03-13 11:43 | NUR ---
VIDEO GAME CREATOR NOTES SEEN AND EVALUATE BY RENE , DISCUSSED LABS FROM YESTERDAY , NO LABS FOR TODAY , AFEBRILE , PT IS WEAK AND LETHARGIC , RENE EXPLAINED TO PT THAT HE NEEDS TO GET 2 UNITS PRBC H/H 3. , AFEBRILE , PT HAVING DIARRHEA , VERIFIED COLACE ORDER , PER MD DANIAL NESS . POLST VERIFIED WITH RENE , HE WILL PUT ORDER FOR CODE STATUS
--- NOTE | 2017-03-13 12:00 | NUR ---
MEDICAL TECH NOTES VERIFY WITH RENE WOODWORKING MACHINE OFFBEARER IF HE WANTS TO CHANGE BLOOD TRANSFUSION ORDER TO STAT , NO ACTIVE BLEEDING BUT H/H OS 3. , PER MD KEEP IT ROUTINE , CALLED LAB FOR TYPE AND SCREEN PT AGREES WITH BLOOD TRANSFUSION . WILL CONTINUE TO MONITOR
--- NOTE | 2017-03-13 14:18 | NUR ---
RN NOTES NOTIFIED RENE THAT PHARMACIST IS REQUESTING FOR A CBC FOR THEM TO RELEASE GRANIX TBO FILGRASTIM SQ , PER MD PUT AN ORDER FOR CBC STAT
[2017-03-13 14:28] LABS: BASOPHILS % (AUTO) 0.1 % (0.0-2.0); EOSINOPHILS % (AUTO) 0.2 % (0.0-6.0); LYMPHOCYTES # (AUTO) 0.2 /CMM (0.8-4.8); LYMPHOCYTES % (AUTO) 7.1 % (20.0-44.0); MEAN CORPUSCULAR HEMOGLOBIN 35 PG (26.0-33.0); MEAN CORPUSCULAR HGB CONC 34 g/dl (31.0-36.0); MEAN CORPUSCULAR VOLUME 103 fL (80-96); MONOCYTES # (AUTO) 0.1 /CMM (0.1-1.30); MONOCYTES % (AUTO) 3.3 % (2.0-12.0); NEUTROPHILS # (AUTO) 1.9 /CMM (1.8-8.9); NEUTROPHILS % (AUTO) 89.3 % (43.0-81.0); PLATELET COUNT (AUTO) 59 /CMM (150-450); RDW COEFFICIENT OF VARIATION 15.1 (11.5-15.0); WHITE BLOOD COUNT (AUTO) 2.1 K/uL (4.3-11.0)
[2017-03-13 14:29] LABS: RED BLOOD CELL COUNT(AUTO) 0.99 MIL/uL (4.5-6.0)
[2017-03-13 14:30] LABS: HEMOGLOBIN 3.5 g/dL (13.5-17.5)
[2017-03-13 14:31] LABS: HEMATOCRIT 10 % (39-51)
--- NOTE | 2017-03-13 15:18 | NUR ---
AFTER SCHOOL COUNSELOR NOTES MORPHINE SULFATE 15MG HELD PT REFUSES TO TAKE IT , PER PT VERBALIZATION HE WILL TAKE DILAUDID IV IT IS DUE @ [id number]
[2017-03-13 15:39] LABS: BAND % (MANUAL) 2 % (0.0-5.0); LYMPHOCYTES % (MANUAL) 4 % (16-48); NEUTROPHILS % (MANUAL) 92 (42-76)
[2017-03-13 15:40] LABS: MONOCYTES % (MANUAL) 2 % (0-11.0)
--- NOTE | 2017-03-13 16:11 | NUR ---
RN NOTES PT REFUSES TO TAKE BOOST , EXPLAINED THE BENEFITS OF IT , PT VERBALIZED UNDERSTANDING STILL REFUSES COLACE HELD DUE TO DIARRHEA
--- NOTE | 2017-03-13 19:22 | NUR ---
RN NOTES RECEIVED PT AWAKE ALERT ORIENTED X 3 ABLE TO MAKE KNOWN NEEDS. PAIN TOLERABLE AT THIS TIME. NO ACUTE RESP DISTRESS. AFEBRILE. INFECTION CONTROL TSERING INSIDE THE ROOM SPOKE TO PATIENT REGARDING HIV MEDS. AND PLAN OF CARE. PER TSERING TO FOLLOW UP IN AM THE HIV CLINIC/[facility] REGARDING THE PREVIOUS MEDICINE PER PATIENT. PATIENT AGREES TO HAVE BLOOD TRANSFUSION TODAY. WAITING FOR THE LAB. KEPT PT CLEAN AND DRY AND COMFORTABLE IN BED. CALL LIGHT KEPT WITHIN EASY REACH. WILL CONTINUE TO MONITOR. Addendum: 03/13/17 at 1929 by KRYS DUONG RN WRONG NURSE REPORTED/NOTES BY MOHINDER AVILEZ RN
--- NOTE | 2017-03-13 19:23 | NUR ---
RN NOTES RECEIVED PT AWAKE ALERT ORIENTED X 3 ABLE TO MAKE KNOWN NEEDS. PAIN TOLERABLE AT THIS TIME. NO ACUTE RESP DISTRESS. AFEBRILE. INFECTION CONTROL TSERING INSIDE THE ROOM SPOKE TO PATIENT REGARDING HIV MEDS. AND PLAN OF CARE. PER TSERING TO FOLLOW UP IN AM THE HIV CLINIC/[facility] REGARDING THE PREVIOUS MEDICINE PER PATIENT. PATIENT AGREES TO HAVE BLOOD TRANSFUSION TODAY. WAITING FOR THE LAB. KEPT PT CLEAN AND DRY AND COMFORTABLE IN BED. CALL LIGHT KEPT WITHIN EASY REACH. WILL CONTINUE TO MONITOR.
--- NOTE | 2017-03-13 20:14 | NUR ---
RN NOTES S/E BY DR. CENTENO SPOKE TO THE PATIENT BY THE BED WITH NEW ORDER ACKNOWLEDGED.
--- NOTE | 2017-03-13 20:54 | NUR ---
RN NOTES PATIENT REFUSED TO TAKE FLAGYL ATB PO PT STATED" LETS TRY WITHOUT THAT MEDICINE CAUSE IT GIVEN ME STOMACH ACHE". RISK AND BENEFITS EXPLAINED PATIENT IS AOX3 RATIONALIZING HIMSELF. PT STILL REFUSED.
[2017-03-14] VITALS (16 sets, daily range): BP systolic 104–124; BP diastolic 54–73
--- NOTE | 2017-03-14 01:35 | NUR ---
RN NOTES FIRST UNIT OF BT TOELRATED WELL WITHOYUT ANY S/S OF ALLERGIC REACTION , VS WNL. PT REMAINED AFEBRILE. SECOND UNIT OF BLOOD STARTED.
--- NOTE | 2017-03-14 04:21 | NUR ---
RN NOTES 2 UNIT OF BLOOD TRANSFUSION FINISH WITH NO ASE NOTED NO S/S OF ALLERGIC REACTION SHOWS. AFEBRILE LAST VS TAKEN WAS TEMP 98.2 RESP 18 PULSE 99 BP 108/73MMHG. SATING 99% ON 2LPM VIA NC. PT ASLEEP AT THIS TIME.
--- NOTE | 2017-03-14 06:54 | NUR ---
RN NOTES PATIENT CONSTANTLY ASKED FOR PAIN MEDICINE. GOT UPSET WHEN DIDN'T GIVE ON THE DOT EVEN IF IT IS NOT DUE YET. EXPLAINED THE RISK AND BENEFITS OF PAIN MEDICINE PT. IS AWARE AND STARTED TO CALM DOWN. BT TOLERATED WELL WITHOUT ASE NOTED. AFEBRILE. NON COMPLIANT WITH FLAGYL PER PT. HE WANTS TO TRY WITHOUT FLAGYL CAUSE HIS STOMACH STARTED TO GET UPSET/ACHE AFTER HE TOOK IT. RESPECT PT REQUEST. CALL LIGHT KEPT WITHIN EASY REACH. NEEDS ATTENDED PROMPTLY. KEPT PT CLEAN AND DRY. ENDORSED CONTINUITY OF CARE TO AM NURSE.
--- NOTE | 2017-03-14 07:10 | NUR ---
RN NOTES ENDORSED TO AM SHIFT TO FOLLOW UP HIV MEDICINE TO [facility] WHICH THEY GIVE A GOOD MEDICINE FOR HIS INFECTION.
--- NOTE | 2017-03-14 07:15 | NUR ---
RN NOTES RECEIVED PT ON BED, A/Ox3, RESPIRATION EVEN AND UNLABORED,NO ACUTE RESP DISTRESS. R UPPER ARM MID LINE SITE CDI, PT REQUESTING SPECIFIC FOOD FOR BREAK FAST, DIETARY NOTIFIED , KEPT PT CLEAN AND DRY AND COMFORTABLE IN BED. CALL LIGHT KEPT WITHIN EASY REACH. CONTINUE TO MONITOR PT CLOSELY AND NOTIFY MD FOR ANY SIGNIFICANT CHANGES
[2017-03-14 11:21] LABS: BASOPHILS % (AUTO) 0.1 % (0.0-2.0); LYMPHOCYTES # (AUTO) 0.2 /CMM (0.8-4.8); MEAN CORPUSCULAR HEMOGLOBIN 31 PG (26.0-33.0); MEAN CORPUSCULAR HGB CONC 33 g/dl (31.0-36.0); MEAN CORPUSCULAR VOLUME 93 fL (80-96); MONOCYTES # (AUTO) 0.1 /CMM (0.1-1.30); MONOCYTES % (AUTO) 2.2 % (2.0-12.0); NEUTROPHILS # (AUTO) 3.7 /CMM (1.8-8.9); NEUTROPHILS % (AUTO) 93.7 % (43.0-81.0); PLATELET COUNT (AUTO) 73 /CMM (150-450); RDW COEFFICIENT OF VARIATION 15.4 (11.5-15.0); WHITE BLOOD COUNT (AUTO) 3.9 K/uL (4.3-11.0)
[2017-03-14 11:57] LABS: RED BLOOD CELL COUNT(AUTO) 1.94 MIL/uL (4.5-6.0)
[2017-03-14 11:59] LABS: HEMATOCRIT 18 % (39-51)
--- NOTE | 2017-03-14 12:00 | NUR ---
RN NOTES RENE DOWNS WATCH ELECTRICIAN NOTIFIED REGARDING H/H 6.0 18. NEW ORDER GIVEN TO TRANSFUSE ONE UNIT ON PRBC'S . ALSO LEFT A MESSAGE FOR DR JITENDRA CASTILLO FOR PAIN MANAGEMENT PER RENE DOWNS'S ORDER .
[2017-03-14 12:24] LABS: BAND % (MANUAL) 2 % (0.0-5.0); LYMPHOCYTES % (MANUAL) 2 % (16-48); MONOCYTES % (MANUAL) 4 % (0-11.0); NEUTROPHILS % (MANUAL) 92 (42-76)
--- NOTE | 2017-03-14 17:00 | NUR ---
RN NOTES ONE UNIT OF PRBC TRANSFUSED , PT TOLERATED WELL, NO DISTRESS NOTED .
--- NOTE | 2017-03-14 18:00 | NUR ---
RN NOTES PATIENT CONSTANTLY ASKED FOR PAIN MEDICINE THROUG OUT THE SHIFT, GOT UPSET WHEN DIDN'T GIVE ON THE DOT EVEN IF IT IS NOT DUE YET. EXPLAINED THE RISK AND BENEFITS OF PAIN MEDICINE , R UPPER ARM MIDLINE CDI, PT REMAINS AFEBRILE , SR UP x3, CALL LIGHT WITHIN EASY REACH, WILL ENDORSE TO NET MANAGER NURSE FOR CONTINUITY OF CARE .
--- NOTE | 2017-03-14 19:30 | NUR ---
MS RN INITIAL NOTES RECEIVED PATIENT AWAKE, A/OX4, ABLE TO MAKE NEEDS KNOWN. C/O 8/10 BACK AND LEG PAIN. PATIENT AWARE WHEN NEXT PAIN MEDICATION IS DUE. NO RESPIRATORY DISTRESS NOTED ON RA. SKIN WARM AND DRY TO TOUCH. HOB ELEVATED. ISOLATION PRECAUTIONS. SIDE RAILS UP AND LOCKED. BED KEPT AT LOWEST POSITION. CALL LIGHT KEPT WITHIN EASY REACH. WILL CONTINUE TO MONITOR.
--- NOTE | 2017-03-14 21:17 | NUR ---
patient refused flagyl at this time, patient stated ever since he has been taking the medication it has been causing him diarrhea, patient understands the benefits of the medication, but would like to hold off on it at this time.
--- NOTE | 2017-03-15 02:39 | NUR ---
PATIENT C/O FREQUENT DIARRHEA, PATIENT REQUESTED FOR MEDICATION TO HELP WITH DIARRHEA. INFORMED DR. HEREDIA WITH ORDERS NOTED. WILL CONTINUE TO MONITOR. Addendum: 03/15/17 at 0743 by MALIKA FISH RN ADD NOTE: PATIENT ALSO C/O ACID REFLUX, MAALOX GIVEN ORDERED. WILL CONTINUE TO MONITOR.
--- NOTE | 2017-03-15 03:30 | NUR ---
MS RN NOTES PATIENT STATES HIS STOMACH FEELS BETTER. WILL CONTINUE TO MONITOR.
[2017-03-15 04:00] VITALS: BP 109/69
--- NOTE | 2017-03-15 05:00 | NUR ---
MS RN NOTES PATIENT REFUSED FLAGYL AT THIS TIME.
--- NOTE | 2017-03-15 07:38 | NUR ---
MS RN CLOSING NOTES NO SIGNIFICANT CHANGES OVERNIGHT. ALL NEEDS ANTICIPATED AND MET. PAIN MONITORED AND MANAGED NEEDED. NO RESPIRATORY DISTRESS NOTED. NO S/S OF BLEEDING NOTED. SKIN WARM AND DRY TO TOUCH. PATIENT STATES HIS STOMACH FEELS BETTER. PATIENT RESTING COMFORTABLY. HOB ELEVATED. SIDE RAILS UP AND LOCKED. BED KEPT AT LOWEST POSITION. CALL LIGHT KEPT WITHIN EASY REACH . CONTINUITY OF CARE ENDORSED TO AM NURSE.
[2017-03-15 08:00] VITALS: BP 102/68
--- NOTE | 2017-03-15 08:00 | NUR ---
RN NOTES: PT RECEIVED IN STABLE CONDITION ALERT AWAKE ORIENTEDX4. ON ROOM AIR, BREATHING PATTERN REGULAR & UNLABORED. IV SITE INTACT, DRY & CLEAN, ABLE TO FLUSH WITH DIFFICULTY, NO BLOOD RETURN. SAFETY MEASURES OBSERVED. CLEAN & DRY. CALL LIGHT WITHIN REACH. WILL CONTINUE TO MONITOR.
--- NOTE | 2017-03-15 08:43 | NUR ---
FF. UP WITH PHARMACY [facility] REQUEST REGARDING HIV MEDS,PER PHARMACIST PT. CLINIC/OUTSIDE PHARMACY NEED TO DELIVER MEDS IN [facility].PT. NO OTHER FAMILY MEMBER THAT CAN GET THE MEDS FROM HIS HIV CLINIC,MESSAGE LEFT ON [facility] REGARDING REQUEST FOR DELIVERING PT. HIV MEDS TO [facility].AWAITS RESPONSE ,WILL FF. UP.
[2017-03-15 16:00] VITALS: BP 108/69
--- NOTE | 2017-03-15 19:44 | NUR ---
RN MS INITIAL NOTES: PT RECEIVED IN STABLE CONDITION ALERT AWAKE ORIENTEDX4. ON ROOM AIR, BREATHING PATTERN REGULAR & UNLABORED, PAIN MEDICATION JUST GIVEN AT 1900. IV SITE INTACT, DRY & CLEAN, ABLE TO FLUSH WITH DIFFICULTY, NO BLOOD RETURN. SAFETY MEASURES OBSERVED. CLEAN & DRY. CALL LIGHT WITHIN REACH. WILL CONTINUE TO MONITOR
[2017-03-15 20:00] VITALS: BP 101/59
[2017-03-16 00:20] VITALS: BP 101/59
--- NOTE | 2017-03-16 06:46 | NUR ---
RN MS CLOSING NOTES: PT ENDORSED IN STABLE CONDITION ALERT AWAKE ORIENTEDX4. ON ROOM AIR, BREATHING PATTERN REGULAR & UNLABORED, PAIN MEDICATION JUST GIVEN AT 0700. IV SITE INTACT, DRY & CLEAN, ABLE TO FLUSH WITH DIFFICULTY, NO BLOOD RETURN. SAFETY MEASURES OBSERVED. CLEAN & DRY. CALL LIGHT WITHIN REACH. WILL CONTINUE TO MONITOR
--- NOTE | 2017-03-16 07:33 | NUR ---
RN NOTES RECEIVED PT IN STABLE CONDITION, A&OX3, ON ROOM AIR NO SOB OR DISTRESS NOTED. SILVIO MIDLINE DRY AND INTACT. SIDE RAILS UPX3, CALL LIGHT WITHIN REACH, BED LOCKED AND IN LOWEST POSITION WILL CONT TO MONITOR.
[2017-03-16 08:00] VITALS: BP 96/51
--- NOTE | 2017-03-16 10:59 | NUR ---
RN NOTES CT OF ABDOMEN ORDERED BUT PT REFUSES TO GO. RENE DOWNS AWARE.
[2017-03-16 14:00] VITALS: BP 98/57
[2017-03-16 16:00] VITALS: BP 98/57
--- NOTE | 2017-03-16 16:44 | NUR ---
RN NOTES PT REFUSES TO TAKE CERTAIN ANABIOTICS DUE TO DIARRHEA, PT STATES THEY ARE THE CAUSE OF HIS DIARRHEA. 2 LOOSE STOOLS ON MY SHIFT.
--- NOTE | 2017-03-16 18:28 | NUR ---
RN NOTES PT RESTING IN BED, NO SOB OR DISTRESS NOTED AT THIS TIME. NO FURTHER EPISODES OF DIARRHEA. STILL COMPLAINING OF PAIN IN ABDOMEN AND LEGS. CT OF ABDOMEN WAS CANCELED DUE TO PT REFUSED. NO SIGNIFICANT CHANGES THROUGHOUT MY SHIFT. WILL ENDORSE TO ONCOMING SHIFT.
[2017-03-16 20:00] VITALS: BP 92/48
--- NOTE | 2017-03-16 20:37 | NUR ---
Turning patient care over to DANYELLE Ashford,no problems
--- NOTE | 2017-03-16 20:40 | NUR ---
MS RN NOTE PT IN BED AWAKE. A/O X 4, NO SOB, NO DISTRESS OR DISCOMFORT NOTED. STATES "I RECEIVED PAIN MED EARLIER, PAIN IS SUBSIDING". 08/02. SILVIO MIDLINE INTACT AND PATENT, NO S/S OF INFILTRATION NOTED. SIDE RAILS UP X 2 AND CALL LIGHT WITHIN REACH. VSS. CONTINUE TO MONITOR HIM.
[2017-03-17] VITALS: BP 97/60
--- NOTE | 2017-03-17 02:25 | NUR ---
MS RN NOTE PT C/O DIARRHEA AND PAIN IN LT KNEE 01/30, IMODIUM 2MG PO FOR DIARRHEA AND DILAUDID 0.5 MG IVP GIVEN FOR PAIN.
--- NOTE | 2017-03-17 03:00 | NUR ---
MS RN NOTE DIARRHEA SUBSIDED. BUT PT WANTS THE MED EVERY 4HRS. WILL CONTINUE TO MONITOR HIM.
[2017-03-17 04:00] VITALS: BP 102/68
--- NOTE | 2017-03-17 06:37 | NUR ---
MS RN NOTE PT IN BED AWAKE. C/O OF DIARRHEA AND PAIN IN LT KNEE. IMODIUM 2 MG PO GIVEN FOR DIARRHEA AND DILAUDID 0.5 MG IVP GIVEN FOR PAIN. ALL NEEDS ATTENDED. SIDE RAILS UP X 2 AND CALL LIGHT WITHIN REACH. WILL ENDORSE TO DAY SHIFT NURSE FOR CONTINUE TO CARE.
[2017-03-17 06:39] LABS: EOSINOPHILS % (AUTO) 2.3 % (0.0-6.0); LYMPHOCYTES # (AUTO) 0.1 /CMM (0.8-4.8); LYMPHOCYTES % (AUTO) 8.4 % (20.0-44.0); MEAN CORPUSCULAR HEMOGLOBIN 34 PG (26.0-33.0); MEAN CORPUSCULAR HGB CONC 35 g/dl (31.0-36.0); MEAN CORPUSCULAR VOLUME 97 fL (80-96); MONOCYTES # (AUTO) 0.1 /CMM (0.1-1.30); NEUTROPHILS # (AUTO) 1.4 /CMM (1.8-8.9); NEUTROPHILS % (AUTO) 82.3 % (43.0-81.0); PLATELET COUNT (AUTO) 61 /CMM (150-450); RDW COEFFICIENT OF VARIATION 14.4 (11.5-15.0)
[2017-03-17 06:53] LABS: WHITE BLOOD COUNT (AUTO) 1.7 K/uL (4.3-11.0)
[2017-03-17 06:54] LABS: HEMATOCRIT 17 % (39-51); HEMOGLOBIN 5.8 g/dL (13.5-17.5)
--- NOTE | 2017-03-17 07:10 | NUR ---
MS RN NOTE CRITICAL LAB VALUE OF H/H RECEIVED FROM LAB TACH DAIN. RENE ORNAMENTAL BRONZE WORKER INFORMED. RECEIVED NEW ORDER OF 2 UNITS OF PRBC, BUT PT REFUSED THE BLOOD TRANSFUSION, INFORMED THE DAY SHIFT NURSE TO F/U.
[2017-03-17 08:00] VITALS: BP 98/63
[2017-03-17 10:11] LABS: BAND % (MANUAL) 2 % (0.0-5.0); EOSINOPHILS % (MANUAL) 2 % (0-4); LYMPHOCYTES % (MANUAL) 9 % (16-48); MONOCYTES % (MANUAL) 7 % (0-11.0); NEUTROPHILS % (MANUAL) 80 (42-76)
--- NOTE | 2017-03-17 11:11 | NUR ---
PATIENT CONTINUALLY REFUSING WHEN TRANSPORTER AND WELD TECHNICIAN COME TO ACCOUNTS RECEIVABLE REPRESENTATIVE FOR CT ABDOMEN PELVIS. WHEN TRANSPORTER LEAVES AND RN TALKS TO PATIENT, HE NO LONGER REFUSES PER RN. TRANSPORTER AND WELD TECHNICIAN HAVE TRIED 3 TIMES THIS MORNING.
[2017-03-17 16:00] VITALS: BP 100/62
--- NOTE | 2017-03-17 19:57 | NUR ---
MS RN NOTE PT IN BED AWAKE. C/O PAIN IN LT KNEE 01/30, DILAUDID 0.5 MG IVP GIVEN FOR PAIN. ALSO PT REFUSED TO TAKE ZITHROMAX 1250 MG DOSE. STATES "I WANT TO SEE MD FIRST AND THIS MEDICATION GIVES ME CRAMPS". REMINDED PT THE IMPORTANCE OF THE MEDS BUT PT COMPLETELY REFUSED TO TAKE, TRIED 3 X. MID LINE SILVIO INTACT AND PATENT. DIARRHEA ALSO SUBSIDING BUT PT WANTS THE IMODIUM EVERY 4 HRS WHICH IS HELPING ACCORDING TO HIM SIDE RAILS UP X 3 AND CALL LIGHT WITHIN REACH. VSS. CONTINUE TO MONITOR HIM.
[2017-03-17 20:00] VITALS: BP 101/59
--- NOTE | 2017-03-17 20:30 | NUR ---
MS RN NOTE PT WAS REFUSING TO BE DRAWN BLOOD FOR TYPE AND CROSS, STATES " I WILL LET THE LAB PEOPLE STICK NEEDLE ONLY ONE TIME THAT'S IT". LAB TACH UNABLE TO DRAW BLOOD FROM FIRST ATTEMPT. PT REFUSED FOR THE SECOND STICK.
--- NOTE | 2017-03-17 21:50 | NUR ---
MS RN NOTE CHARGE NURSE TALKED WITH DR HEREDIA REGARDING PT REFUSED TYPE AND CROSS. NO NEW ORDER GIVEN. MD WILL TALK TO PT IN AM.
[2017-03-18 04:00] VITALS: BP_SYST 103; BP_DIAS 64; BP_DIAS 69
--- NOTE | 2017-03-18 06:22 | NUR ---
MS RN NOTE PT IN BED ASLEEP, AROUSABLE. PAIN SUBSIDED 2/10. ALL NEEDS ATTENDED. SIDE RAILS UP X 2 AND CALL LIGHT WITHIN REACH. WILL ENDORSE TO DAY SHIFT NURSE FOR CONTINUE TO CARE.
--- NOTE | 2017-03-18 07:32 | NUR ---
MS/RN NOTES RECEIVED PATIENT RESTING IN BED AWAKE AND ORIENTED X4, NO FORM OF DISTRESS OR DISCOMFORT NOTED. ON ROOM AIR, RESPIRATIONS EVEN AND UNLABORED. PATIENT COMPLAINTS OF 5/10 GENERALIZED PAIN, MANAGED WITH DILAUDID 0.5MG EVERY 3 HOURS. LOW H/H. BLOOD DRAW TO BE DONE. PATIENT AGREED TO GET BLOOD TRANSFUSION. SAFETY MEASURES RENDERED, CALL LIGHT PLACED WITHIN REACH. WILL CONTINUE TO MONITOR.
[2017-03-18 08:00] VITALS: BP 100/61
[2017-03-18 11:13] VITALS: BP 100/61
--- NOTE | 2017-03-18 11:35 | NUR ---
MS/RN NOTES PATIENT'S PAIN MANAGED WITH DILAUDID 0.5MG EVERY 3 HOURS AROUND THE CLOCK.
--- NOTE | 2017-03-18 14:27 | NUR ---
MS/RN NOTES RECEIVED CALL FROM BLOOD BANK STATING PATIENT BLOOD PRESENTS WITH ANTIBODIES. WILL BE SENT TO [facility] [employer] FOR DETECTION. STAT ORDER PLACED. NOTIFIED
--- NOTE | 2017-03-18 14:50 | NUR ---
FF. UP AGAIN WITH HIV CLINIC REGARDING MEDS,LEFT MESSAGE AGAIN.
--- NOTE | 2017-03-18 15:05 | NUR ---
MS/RN NOTE PATIENT REFUSING MS 15MG 1500 SCHEDULED DOSE AND REQUESTS HIS DILAUDID. PATIENT ASKS FOR DILAUDID AROUND THE CLOCK AND REFUSES ALL OTHER FORMS OF PAIN MED. STATES THAT THE ONLY EFFECTIVE FORM OF PAIN MEDICATION IS DILAUDID AND INSISTS TO BE GIVEN THAT ONLY
--- NOTE | 2017-03-18 16:26 | NUR ---
ms/rn notes patient's diarrhea subsided. small formed bm noted.
--- NOTE | 2017-03-18 16:28 | NUR ---
ms/rn notes Klonopin given prior to ct abdomen. scheduled to be picked up at 1700
[2017-03-18 18:34] VITALS: BP 94/60
--- NOTE | 2017-03-18 19:24 | NUR ---
ms/rn notes pulled out dilaudid to administer to patient and noted it was administered by another nurse valentin. confrimed with Valentin that a dose was given. called pharmacy and notified. was told to waste the entire dose of dilaudid i had in my hand, witness while wasting
--- NOTE | 2017-03-18 19:26 | NUR ---
ms/rn notes patient remains stable no changes in condition. no blood transfusion d/t unavailability. awaiting on prbc from [facility]. riky nurse aware and notified. called blood bank and was told pending. patient remains on pain management
--- NOTE | 2017-03-18 19:30 | NUR ---
MS RN NOTE PT IN BED FALLING ASLEEP, AROUSABLE. A/O X 3, NO SOB, NO DISTRESS OR DISCOMFORT NOTED. DENIES PAIN. SILVIO MIDLINE INTACT AND PATENT. SIDE RAILS UP X 2 AND CALL LIGHT WITHIN REACH. VSS. CONTINUE TO MONITOR HIM.
[2017-03-18 20:00] VITALS: BP 105/61
--- NOTE | 2017-03-18 23:23 | NUR ---
MS RN NOTE PT REFUSED MS IR AND WANTS DILAUDID INSTEAD FOR PAIN. DILAUDID 0.5 MG IVP GIVEN FOR GENERALIZED PAIN 01/30. CONTINUE TO MONITOR.
[2017-03-19] VITALS (16 sets, daily range): BP systolic 92–111; BP diastolic 59–75
--- NOTE | 2017-03-19 | NUR ---
MS RN NOTE BLOOD BANK INFORMED ME THAT I UNIT OF PRBC IS READY. INFORMED PT. SILVIO MID LINE IS GETTING HARD TO FLUSH. REMINDED PT TO INSET NEW LINE. PT REFUSED. WILL TRY LATER TO CONVINCE HIM.
--- NOTE | 2017-03-19 01:55 | NUR ---
MS RN NOTE PT ASKING FOR SLEEPING MED. AMBIEN 5 MG PO GIVEN. CONTINUE TO MONITOR HIM.
--- NOTE | 2017-03-19 02:30 | NUR ---
MS RN NOTE CHARGE NURSE ATTEMPTED TO INSERT NEW LINE BUT PT REFUSED AGAIN.
--- NOTE | 2017-03-19 03:08 | NUR ---
MS RN NOTE PRBC 1 UNITS STARTED. NO A/R NOTED. CONTINUE TO MONITOR HIM. VSS.
--- NOTE | 2017-03-19 05:54 | NUR ---
MS RN NOTE BLOOD TRANSFUSION FINISHED. NO A/R NOTED. NO FLUID OVERLOAD NOTED. VSS.
--- NOTE | 2017-03-19 06:50 | NUR ---
MS RN NOTE PT IN BED ASLEEP, AROUSABLE. PAIN MEDS GIVEN DURING THE SHIFT, PAIN SUBSIDED 2/10. ALL NEEDS ATTENDED. SIDE RAILS UP X 2 AND CALL LIGHT WITHIN REACH. WILL ENDORSE TO DAY SHIFT NURSE FOR CONTINUE TO CARE.
--- NOTE | 2017-03-19 07:20 | NUR ---
MS RN NOTE RECEIVED PT AWAKE IN BED, A&O3, ON RA, RESPIRATIONS EVEN AND UNLABORED WITH NO SOB NOTED. SILVIO MIDLINE INTACT AND PATENT. ISOLATION PRECAUTIONS IN PLACE. BED LOW, LOCKED, X2 SIDE RAILS UP WITH CALL LIGHT WITHIN REACH. WILL CONT TO MONITOR.
[2017-03-19 07:52] LABS: CALCIUM, SERUM 7.7 mg/dL (8.5-10.1); CREATININE 0.6 mg/dL (0.6-1.3); POTASSIUM 4.3 mmol/L (3.5-5.1)
[2017-03-19 07:54] LABS: EOSINOPHILS # (AUTO) 0.1 /CMM (0.0-0.7); EOSINOPHILS % (AUTO) 1.7 % (0.0-6.0); LYMPHOCYTES # (AUTO) 0.3 /CMM (0.8-4.8); LYMPHOCYTES % (AUTO) 5.6 % (20.0-44.0); MEAN CORPUSCULAR HEMOGLOBIN 31 PG (26.0-33.0); MEAN CORPUSCULAR HGB CONC 34 g/dl (31.0-36.0); MEAN CORPUSCULAR VOLUME 92 fL (80-96); MONOCYTES # (AUTO) 0.2 /CMM (0.1-1.30); NEUTROPHILS % (AUTO) 87.7 % (43.0-81.0); PLATELET COUNT (AUTO) 60 /CMM (150-450); RDW COEFFICIENT OF VARIATION 14.6 (11.5-15.0); WHITE BLOOD COUNT (AUTO) 4.5 K/uL (4.3-11.0)
[2017-03-19 08:07] LABS: RED BLOOD CELL COUNT(AUTO) 1.98 MIL/uL (4.5-6.0)
[2017-03-19 08:08] LABS: HEMOGLOBIN 6.2 g/dL (13.5-17.5)
[2017-03-19 08:09] LABS: HEMATOCRIT 18 % (39-51)
[2017-03-19 11:09] LABS: BAND % (MANUAL) 1 % (0.0-5.0); LYMPHOCYTES % (MANUAL) 3 % (16-48); MONOCYTES % (MANUAL) 3 % (0-11.0); NEUTROPHILS % (MANUAL) 93 (42-76)
--- NOTE | 2017-03-19 19:00 | NUR ---
MS RN NOTE: NO ACUTE CHANGES DURING SHIFT. PT REMAINED A&OX3. PAIN MEDS GIVEN ORDERED. ORDERS CARRIED OUT. BED LOW, LOCKED, X2 SIDE RAILS UP WITH CALL LIGHT WITHIN REACH. ISOLATION PRECAUTIONS IN PLACE. WILL ENDORSE TO AEROPHYSICIST NURSE FOR SUNNY.
--- NOTE | 2017-03-19 19:20 | NUR ---
RN INITIAL NOTE RECEIVED PT IN NO ACUTE DISTRESS IN BED. PT IS A/O X 3 AND ABLE TO MAKE NEEDS KNOWN. PT IS C/O PAIN @ 8/. PAIN MANAGEMENT WAS INITIATED AND DILAUDID 0.25ML Q3H WAS GIVEN AN HOUR PRIOR TO ARRIVAL. PT NOTIFIED OF MEDICATION TIME. PT HAS 1 UNIT PRBC ORDERED AND AWAITING PATENTED HOGSHEAD ASSEMBLER. PT HAS SILVIO MIDLINE THAT IS CLEAN DRY AND INTACT. BED IN LOW LOCK POSITION WITH RIALS UP X 2. CALL LIGHT WITHIN REACH AND ALL SAFETY MEASURES ENSURED AND CARRIED OUT. WILL CONTINUE TO MONITOR PT.
--- NOTE | 2017-03-20 03:42 | NUR ---
RN NOTE PT REFUSED BLOOD DRAW FOR CBC. WILL TRY AGAIN LATER.
[2017-03-20 04:00] VITALS: BP 109/69
[2017-03-20 06:29] LABS: EOSINOPHILS # (AUTO) 0.1 /CMM (0.0-0.7); EOSINOPHILS % (AUTO) 0.6 % (0.0-6.0); HEMATOCRIT 23 % (39-51); HEMOGLOBIN 7.8 g/dL (13.5-17.5); LYMPHOCYTES # (AUTO) 0.3 /CMM (0.8-4.8); LYMPHOCYTES % (AUTO) 3.8 % (20.0-44.0); MEAN CORPUSCULAR HEMOGLOBIN 33 PG (26.0-33.0); MEAN CORPUSCULAR HGB CONC 34 g/dl (31.0-36.0); MEAN CORPUSCULAR VOLUME 96 fL (80-96); MONOCYTES # (AUTO) 0.5 /CMM (0.1-1.30); NEUTROPHILS # (AUTO) 8.1 /CMM (1.8-8.9); NEUTROPHILS % (AUTO) 89.6 % (43.0-81.0); PLATELET COUNT (AUTO) 56 /CMM (150-450); RDW COEFFICIENT OF VARIATION 14.7 (11.5-15.0); RED BLOOD CELL COUNT(AUTO) 2.39 MIL/uL (4.5-6.0)
--- NOTE | 2017-03-20 06:46 | NUR ---
RN CLOSING NOTE PT REMAINS IN NO ACUTE DISTRESS IN BED. PT DID NOT HAVE ANY SIGNIFICANT CHANGE IN CONDITION DURING SHIFT. ALL NEEDS MET ALL ORDERS CARRIED OUT. WILL ENDORSE CARE TO AM RN FOR CONTINUITY OF CARE.
[2017-03-20 06:50] LABS: CALCIUM, SERUM 8.2 mg/dL (8.5-10.1); CREATININE 0.7 mg/dL (0.6-1.3)
[2017-03-20 08:00] VITALS: BP 102/70
[2017-03-20 09:19] LABS: BAND % (MANUAL) 4 % (0.0-5.0); LYMPHOCYTES % (MANUAL) 4 % (16-48); MONOCYTES % (MANUAL) 10 % (0-11.0); NEUTROPHILS % (MANUAL) 82 (42-76)
--- NOTE | 2017-03-20 11:24 | NUR ---
SW contacted pt's case finisher Adrienne at [facility] [phone] requesting a call back in regards to discharge planning.
[2017-03-20 16:00] VITALS: BP 102/63
--- NOTE | 2017-03-20 19:10 | NUR ---
RN OPENING NOTES RECEIVED REPORT FROM AM RN. PATIENT IN BED, A/A/O X3, ABLE TO MAKE NEEDS KNOWN. BREATHING EVEN AND UNLABORED, ON ROOM AIR. DENIES SOB OR DIFFICULTY BREATHING. PULSES PRESENT. RIGHT UPPER ARM MIDLINE PATENT W/ DRESSING CDI, ON SL. C/O PAIN OF 8 ON 0-10 PAIN SCALE. PAIN MED TO BE GIVEN. SAFETY MEASURES IN PLACE W/ SIDE RAILS UP, BED LOCKED IN LOWEST POSITION, CALL LIGHT WITHIN REACH. WILL CONTINUE TO MONITOR.
--- NOTE | 2017-03-20 19:12 | NUR ---
pt in stable condition.no s/s of distress ,all m.d orders noted.safety precautions in place.bed in low and lock position.
[2017-03-20 20:00] VITALS: BP 98/60
[2017-03-21] VITALS (9 sets, daily range): BP systolic 94–108; BP diastolic 54–72
--- NOTE | 2017-03-21 07:10 | NUR ---
MS RN NOTE: RECEIVED PATIENT AWAKE IN BED, A&O3, ON RA, RESPIRATIONS EVEN AND UNLABORED WITH NO SOB NOTED. SILVIO MIDLINE INTACT AND PATENT. ISOLATION PRECAUTIONS IN PLACE. BED LOW, LOCKED, X2 SIDE RAILS UP WITH CALL LIGHT WITHIN REACH. WILL CONT TO MONITOR.
[2017-03-21 16:17] LABS: BASOPHILS % (AUTO) 0.1 % (0.0-2.0); EOSINOPHILS % (AUTO) 0.9 % (0.0-6.0); LYMPHOCYTES # (AUTO) 0.3 /CMM (0.8-4.8); LYMPHOCYTES % (AUTO) 11.8 % (20.0-44.0); MEAN CORPUSCULAR HEMOGLOBIN 30 PG (26.0-33.0); MEAN CORPUSCULAR HGB CONC 33 g/dl (31.0-36.0); MEAN CORPUSCULAR VOLUME 91 fL (80-96); MONOCYTES # (AUTO) 0.3 /CMM (0.1-1.30); MONOCYTES % (AUTO) 12.4 % (2.0-12.0); NEUTROPHILS # (AUTO) 1.7 /CMM (1.8-8.9); NEUTROPHILS % (AUTO) 74.8 % (43.0-81.0); RDW COEFFICIENT OF VARIATION 15.2 (11.5-15.0); RED BLOOD CELL COUNT(AUTO) 2.03 MIL/uL (4.5-6.0); WHITE BLOOD COUNT (AUTO) 2.3 K/uL (4.3-11.0)
[2017-03-21 16:22] LABS: HEMATOCRIT 18 % (39-51); HEMOGLOBIN 6.1 g/dL (13.5-17.5)
[2017-03-21 16:23] LABS: PLATELET COUNT (AUTO) 44 /CMM (150-450)
[2017-03-21 16:25] LABS: CALCIUM, SERUM 7.6 mg/dL (8.5-10.1); CREATININE 0.7 mg/dL (0.6-1.3); POTASSIUM 4.3 mmol/L (3.5-5.1)
--- NOTE | 2017-03-21 16:30 | NUR ---
MS RN NOTE: DR. CENTENO SEEN PT AT BEDSIDE. DR. CENTENO AWARE OF PRBC TO TRANSFUSE IF HGB <7.0. 03/21/17 HGB VALUE 6.1. ORDER ENTERED.
[2017-03-21 17:39] LABS: BAND % (MANUAL) 3 % (0.0-5.0); BASOPHILS % (MANUAL) 0 % (0.0-2.0); EOSINOPHILS % (MANUAL) 1 % (0-4); LYMPHOCYTES % (MANUAL) 10 % (16-48); MONOCYTES % (MANUAL) 13 % (0-11.0); NEUTROPHILS % (MANUAL) 73 (42-76)
[2017-03-21 18:22] LABS: FERRITIN 1755 ng/mL (8-388); IRON, SERUM 33 ug/dl (50-175)
--- NOTE | 2017-03-21 19:00 | NUR ---
MS RN NOTE: NO ACUTE CHANGES DURING SHIFT. PT A&OX3, PAIN MANAGED ORDERED. ORDERS CARRIED OUT. BED LOW, LOCKED, X2 SIDE RAILS UP AND CALL LIGHT WITHIN REACH. WILL ENDORSE TO FLIGHT OPERATIONS COORDINATOR NURSE FOR SUNNY.
[2017-03-22 01:25] VITALS: BP 109/67
--- NOTE | 2017-03-22 01:30 | NUR ---
RN NOTES; PT RECEIVED ONE UNIT OF BLOOD UPON THE READING OF Hgb OF 6.1 NO BLOOD REACTIONS.NO ACUTE DISTRESS NOTED. PT IS AWAKE ,ALERT,ORIENTED x4. VITAL SIGNS CHECKED FREQUENTLY. WILL CONTINUE TO MONITOR FOR ANY CHANGES.
[2017-03-22 04:00] VITALS: BP 99/64
--- NOTE | 2017-03-22 07:10 | NUR ---
MS RN NOTE: RECEIVED PT AWAKE IN BED, A&O3, ON RA, RESPIRATIONS EVEN AND UNLABORED WITH NO SOB NOTED. SILVIO MIDLINE INTACT AND PATENT. ISOLATION PRECAUTIONS IN PLACE. BED LOW, LOCKED, X2 SIDE RAILS UP WITH CALL LIGHT WITHIN REACH. WILL CONT TO MONITOR.
--- NOTE | 2017-03-22 07:20 | NUR ---
END OF SHIFT SUMMERY: PT IS A&O X 4. . ON ROOM AIR, SATURATING WELL. PT COMPLAINS OF CHRONIC BACK PAIN. RECEIVING DILAUDID, MORPHINE AND NORCO PRESCRIBED WITH RELIEF. PT RECEIVED ON UNIT OF BLOOD. NO REACTIONS OR ACUTE DISTRESS NOTED. WILL ENDORSE IT TO AM SHIFT NURSE TO FOLLOW UP.
[2017-03-22 08:00] VITALS: BP 106/59
--- NOTE | 2017-03-22 15:40 | NUR ---
MS RN NOTE: PT REFUSED BLOOD DRAW AND WAS VERBALLY AGGRESSIVE TOWARDS RN HOME HEALTH AND NURSE. PT ALSO REQUESTED TO HAVE URINE COLLECTION SPECIMEN CUP SET ASIDE.
--- NOTE | 2017-03-22 15:52 | NUR ---
MS RN NOTE: PT TEMPERATURE 101.1. TYLENOL 650MG PO TAB PRN FOR FEVER GIVEN ORDERED. COOLING MEASURES WITH ICE PACKS PROVIDED. CHARGE NURSE NOTIFIED. WILL RECHECK TEMP IN 15 MIN AND CONT TO MONITOR.
[2017-03-22 16:00] VITALS: BP 108/67
--- NOTE | 2017-03-22 16:47 | NUR ---
MS RN NOTE: TEMP RECHECK 98.8 POST COOLING MEASURES AND TYLENOL.
--- NOTE | 2017-03-22 19:00 | NUR ---
MS RN NOTE: NO ACUTE CHANGES DURING SHIFT. PT REMAINED A&OX3. ORDERS CARRIED OUT. BED LOW, LOCKED, X2 SIDERAILS UP AND CALL LIGHT WITHIN REACH. WILL ENDORSE TO TOP TRIMMER NURSE FOR SUNNY.
--- NOTE | 2017-03-22 19:15 | NUR ---
RN INITIAL NOTES PATIENT RECEIVED SITTING UP IN WHEELCHAIR, DOWN THE HALLWAY. PATIENT IS QUIET AT THIS TIME, NO DISTRESS. NO C/O PAIN AND DISCOMFORT. PATIENT STILL STRONGLY REFUSES LABS TO BE DRAWN. OBSERVED TO GET AGITATED AND HOSTILE WHEN INQUIRED WITH REGARDS TO COMPLIANCE WITH LAB DRAWS AND CARE. PER AM SHIFT NURSE, ARE AWARE OF THE PATIENT'S REFUSAL. WILL REATTEMPT TO CONVINCE PATIENT WITH TREATMENT COMPLIANCE NEEDED. WILL MONITOR.
[2017-03-22 20:00] VITALS: BP 105/71
--- NOTE | 2017-03-22 20:25 | NUR ---
RN NOTES CARE ENDORSED TO RNDEBORAH. PATIENT WITH NO DISTRESS. STILL NON-COMPLIANT AND AGGRESSIVE WITH STAFF.
[2017-03-23 04:00] VITALS: BP 97/63
--- NOTE | 2017-03-23 06:39 | NUR ---
Up most of the night requesting pain meds.
--- NOTE | 2017-03-23 07:55 | NUR ---
MS RN OPENING NOTE PATIENT IS ALERT AND ORIENTED x3. NO PAIN AT THIS TIME. NO SOB OR DISTRESS NOTED. CALL LIGHT WITHIN REACH. SAFETY MEASURES IMPLEMENTED. ABLE TO COMMUNICATE NEEDS. AMBULATES AND HAS HIS OWN WHEELCHAIR. HAS RIGHT UPPER MIDLINE INTACT AND PATENT NO REDNESS OR SWELLING NOTED. REFUSED MEDICATIONS LAST NIGHT AND LABS THIS MORNING. EXPLAINED RISKS AND BENEFITS OF REFUSING MEDICATIONS AND TREATMENT. WILL CONTINUE TO MONITOR THROUGHOUT SHIFT.
[2017-03-23 08:00] VITALS: BP 102/61
--- NOTE | 2017-03-23 11:49 | NUR ---
MS RN NOTE PATIENT REFUSING LABS AGAIN. WILL RETRY AGAIN LATER THIS AFTERNOON. CHARGE NURSE INFORMED.
[2017-03-23 12:00] LABS: BASOPHILS % (AUTO) 0.1 % (0.0-2.0); EOSINOPHILS % (AUTO) 0.8 % (0.0-6.0); HEMATOCRIT 22 % (39-51); HEMOGLOBIN 7.4 g/dL (13.5-17.5); LYMPHOCYTES # (AUTO) 0.2 /CMM (0.8-4.8); LYMPHOCYTES % (AUTO) 6.5 % (20.0-44.0); MEAN CORPUSCULAR HEMOGLOBIN 30 PG (26.0-33.0); MEAN CORPUSCULAR HGB CONC 33 g/dl (31.0-36.0); MEAN CORPUSCULAR VOLUME 92 fL (80-96); MONOCYTES # (AUTO) 0.2 /CMM (0.1-1.30); MONOCYTES % (AUTO) 7.7 % (2.0-12.0); NEUTROPHILS # (AUTO) 2.1 /CMM (1.8-8.9); NEUTROPHILS % (AUTO) 84.9 % (43.0-81.0); PLATELET COUNT (AUTO) 54 /CMM (150-450); RDW COEFFICIENT OF VARIATION 15.3 (11.5-15.0); RED BLOOD CELL COUNT(AUTO) 2.42 MIL/uL (4.5-6.0); WHITE BLOOD COUNT (AUTO) 2.5 K/uL (4.3-11.0)
[2017-03-23 12:07] LABS: CALCIUM, SERUM 7.9 mg/dL (8.5-10.1); CREATININE 0.8 mg/dL (0.6-1.3); POTASSIUM 4.3 mmol/L (3.5-5.1)
[2017-03-23 12:19] LABS: BAND % (MANUAL) 5 % (0.0-5.0); LYMPHOCYTES % (MANUAL) 9 % (16-48); MONOCYTES % (MANUAL) 5 % (0-11.0); NEUTROPHILS % (MANUAL) 81 (42-76)
--- NOTE | 2017-03-23 14:08 | NUR ---
MS RN NOTE NOTICED PATIENTS MIDLINE DRESSING IS COMING OFF FROM PATIENT PULLING ON DRESSING. I ASKED PATIENT IF I COULD CHANGE THE DRESSING, PATIENT STATED " I DONT WANT YOU OR ANYONE ELSE TO TOUCH IT OR REPLACE IT, LET THE PERSON WHO PUT IT IN DO IT THEY'RE THE PROFESSIONAL". INFORMED CHARGE NURSE AND NET MANAGER. WILL AWAITING FOR MIDLINE NURSE
[2017-03-23 16:00] VITALS: BP 99/63
[2017-03-23 17:00] VITALS: BP 99/63
--- NOTE | 2017-03-23 18:54 | NUR ---
MS RN CLOSING NOTE PATIENT IS ALERT AND ORIENTED x3. FORGETFUL AT TIMES. NO PAIN AT THIS TIME. NO SOB OR DISTRESS NOTED. CALL LIGHT WITHIN REACH AT ALL TIMES. SAFETY MEASURES IMPLEMENTED. ALL DUE MEDICATIONS GIVEN ORDERED. ABLE TO COMMUNICATE NEEDS. SILVIO MIDLINE IS PATENT, PATIENT PULLING ON DRESSING, ASKED PATIENT IF I CAN CHANGE THE DRESSING AND PATIENT REFUSED STATING "LET THE PROFESSIONAL DO IT, I WANT THE PERSON WHO INSERTED THIS THING NOT YOU". INFORMED CHARGE NURSE ABOUT PATIENT REFUSING ME TO CHANGE DRESSING. USES WHEELCHAIR. WILL ENDORSE TO [employer] EXTENSION EDUCATOR NURSE FOR SUNNY
[2017-03-23 20:00] VITALS: BP 101/54
[2017-03-24 04:00] VITALS: BP 100/65
--- NOTE | 2017-03-24 07:05 | NUR ---
Awake most of night c/o about something. often requesting pain med,even after being given
[2017-03-24 08:00] VITALS: BP 97/65
--- NOTE | 2017-03-24 11:16 | NUR ---
ZOEY left a voicemail message for pt's renal case manager Adrienne at [facility] x [phone] informing him that pt. is going to be discharged today from [facility] and to call back regarding his placement. Pt's only other alternative is senior care placement. Addendum: 03/24/17 at 1220 by LETICIA GREER ZOEY received a call back from Adrienne informing SW he has a place for the patient however pt. didn't want to go to a structured setting. ZOEY informed Adrienne, pt's only other option will be senior care placement if he refuses to go the placement that will be provided by renal case manager Adrienne. Adrienne informed ZOEY to have pt. contact him. ZOEY called pt's DANYELLE Gould x [phone] in [facility] and gave him the phone number for pt. to call his renal case manager Adrienne regarding placement.
[2017-03-24 18:19] LABS: BASOPHILS % (AUTO) 0.1 % (0.0-2.0); EOSINOPHILS % (AUTO) 0.1 % (0.0-6.0); HEMATOCRIT 21 % (39-51); LYMPHOCYTES # (AUTO) 0.2 /CMM (0.8-4.8); LYMPHOCYTES % (AUTO) 9.8 % (20.0-44.0); MEAN CORPUSCULAR HEMOGLOBIN 31 PG (26.0-33.0); MEAN CORPUSCULAR HGB CONC 33 g/dl (31.0-36.0); MEAN CORPUSCULAR VOLUME 92 fL (80-96); MONOCYTES # (AUTO) 0.2 /CMM (0.1-1.30); MONOCYTES % (AUTO) 7.6 % (2.0-12.0); NEUTROPHILS # (AUTO) 1.9 /CMM (1.8-8.9); NEUTROPHILS % (AUTO) 82.4 % (43.0-81.0); PLATELET COUNT (AUTO) 65 /CMM (150-450); RDW COEFFICIENT OF VARIATION 16.2 (11.5-15.0); RED BLOOD CELL COUNT(AUTO) 2.27 MIL/uL (4.5-6.0); WHITE BLOOD COUNT (AUTO) 2.3 K/uL (4.3-11.0)
[2017-03-24 19:58] LABS: BAND % (MANUAL) 23 % (0.0-5.0); LYMPHOCYTES % (MANUAL) 12 % (16-48); MONOCYTES % (MANUAL) 9 % (0-11.0); NEUTROPHILS % (MANUAL) 56 (42-76)
[2017-03-24 20:00] VITALS: BP 124/84
[2017-03-25 04:00] VITALS: BP_SYST 103; BP_DIAS 58; BP_DIAS 70
[2017-03-25 05:51] LABS: BASOPHILS % (AUTO) 0.5 % (0.0-2.0); EOSINOPHILS % (AUTO) 0.3 % (0.0-6.0); HEMATOCRIT 21 % (39-51); LYMPHOCYTES # (AUTO) 0.2 /CMM (0.8-4.8); LYMPHOCYTES % (AUTO) 11.4 % (20.0-44.0); MEAN CORPUSCULAR HEMOGLOBIN 31 PG (26.0-33.0); MEAN CORPUSCULAR HGB CONC 34 g/dl (31.0-36.0); MEAN CORPUSCULAR VOLUME 92 fL (80-96); MONOCYTES # (AUTO) 0.1 /CMM (0.1-1.30); MONOCYTES % (AUTO) 6.4 % (2.0-12.0); NEUTROPHILS # (AUTO) 1.7 /CMM (1.8-8.9); NEUTROPHILS % (AUTO) 81.4 % (43.0-81.0); PLATELET COUNT (AUTO) 68 /CMM (150-450); RDW COEFFICIENT OF VARIATION 16.1 (11.5-15.0); RED BLOOD CELL COUNT(AUTO) 2.27 MIL/uL (4.5-6.0); WHITE BLOOD COUNT (AUTO) 2.1 K/uL (4.3-11.0)
[2017-03-25 06:04] LABS: CALCIUM, SERUM 7.7 mg/dL (8.5-10.1); CREATININE 0.8 mg/dL (0.6-1.3); POTASSIUM 4.4 mmol/L (3.5-5.1)
--- NOTE | 2017-03-25 06:57 | NUR ---
Hardly slept in and out bed all night.Often requesting pain meds
[2017-03-25 07:27] LABS: BAND % (MANUAL) 3 % (0.0-5.0); EOSINOPHILS % (MANUAL) 1 % (0-4); LYMPHOCYTES % (MANUAL) 12 % (16-48); MONOCYTES % (MANUAL) 6 % (0-11.0); NEUTROPHILS % (MANUAL) 78 (42-76)
[2017-03-25 08:00] VITALS: BP 106/72
--- NOTE | 2017-03-25 08:46 | NUR ---
SW left a voicemail message for pt's mattress spring encaser Adrienne at [facility] x [phone] requesting a call back regarding placement.
--- NOTE | 2017-03-25 10:40 | NUR ---
ZOEY along with managing supervisor Malia Lopez met with pt. bedside to discuss discharge plan. ZOEY questioned pt. as to why he did not call his case preparer and liner Adrienne as SW had requested him to do so. Pt. comes across as very hostile and controlling in what is said and discussed. Pt. informed SW, he would like to speak to Adrienne with ZOEY and upper caser present during the meeting. ZOEY informed pt. she will contact Adrienne to schedule a meeting. ZOEY contacted Adrienne case preparer and liner at [facility] [phone] to schedule an in-person meeting with pt. to discuss discharge plan. Meeting is scheduled for today at 3:30PM. ZOEY informed upper caser Corey regarding the scheduled meeting.
[2017-03-25 16:00] VITALS: BP 111/65
--- NOTE | 2017-03-25 19:15 | NUR ---
RN INITIAL NOTES RECEIVED REPORT FROM PREVIOUS SHIFT OF HOW THE PATIENT GOT AGITATED AND HOSTILE RIGHT AFTER HE WAS TOLD THAT HIS IVP DILAUDID HAS BEEN DISCONTINUED. PATIENT IS IN HIS WHEELCHAIR, OUTSIDE HIS ROOM, REINFORCED ISOLATION PRECAUTION BY WHICH CONSTANT REINFORCEMENT WAS NEEDED FOR THE PATIENT TO COMPLY. PATIENT'S NEEDS ANTICIPATED AND MET. SAFETY AND COMFORT ENSURED. ON MONITORING.
[2017-03-25 20:00] VITALS: BP 125/70
--- NOTE | 2017-03-25 22:00 | NUR ---
RN NOTES PATIENT AGITATED WITH HOW HIS PAIN MEDICATION, PARTICULARLY THE PRN DILAUDID IVP, HAS BEEN DISCONTINUED TODAY. PATIENT VERBALLY ABUSIVE WHEN HE WAS VOICING OUT HIS CONCERN WITH REGARDS TO HOW HIS PAIN MEDICATIONS HAD BEEN DISCONTINUED AND REDUCED. HEALTH TEACHING PROVIDED FOR THE PATIENT, HOWEVER PATIENT IS OBSERVED TO BE INDIFFERENT. PATIENT WENT ON ABOUT HOW HE WANTS HIS METHADONE DOSAGE TO BE INCREASED AND THAT WHAT HE WAS PRESCRIBED WITH IS NOT A "THERAPEUTIC DOSE". INFORMED AND REVIEWED WITH PATIENT HIS CURRENT MEDICATION LIST PER REQUEST AND PATIENT MANAGED TO BE QUIET AND JUST INSISTED THAT HE WOULD WANT TO TALK TO THE DOCTORS IN THE MORNING AND INCREASE HIS METHADONE AND PAIN MEDICATIONS. HS MEDS GIVEN TO THE PATIENT ORDERED. NORCO GIVEN PER PATIENT'S REQUEST. PATIENT'S NEEDS ANTICIPATED AT THIS TIME, CALL LIGHT IN REACH.
--- NOTE | 2017-03-26 00:08 | NUR ---
RN NOTES PATIENT IN BED, SLEEPING COMFORTABLY. NO DISTRESS AT THIS TIME. ON CLOSE MONITORING.
--- NOTE | 2017-03-26 01:20 | NUR ---
RN NOTES PATIENT NOTED TO BE SCREAMING, DEMANDING TO KNOW WHEN HIS NEXT ANTIANXIETY MEDICATION IS DUE. PATIENT IS VERBALLY ABUSIVE, ATTEMPTING TO MANIPULATE STAFF. EXPLAINED IN GREAT DETAIL REGARDING CURRENT MEDICATION ORDERS, AND WHAT TIME THE NEXT DOSES WILL BE AVAILABLE FOR ADMINISTRATION. PATIENT VERBALIZES UNDERSTANDING, BUT STILL REMAINS VERBALLY ABUSIVE TO STAFF
--- NOTE | 2017-03-26 01:30 | NUR ---
RN NOTES PATIENT NOTED TO BE UTTERING PROFANITIES LOUDLY, HEARD THROUGH THE HALLWAY. PATIENT THEN SEEN WHEELING HIMSELF OUTSIDE OF HIS ROOM. EXPLAINED TO THE PATIENT AGAIN REGARDING THE ISOLATION PRECAUTIONS IN A CALM MANNER. PATIENT DEMANDED FOR HIS PAIN MEDICATIONS AND KLONOPIN. EXPLAINED TO THE PATIENT IN DETAIL, AGAIN, THE MEDICATIONS HE IS CURRENTLY PRESCRIBED WITH AND THE TIMES/FREQUENCIES. REASSURED PATIENT THAT HE WILL GET HIS NORCO PRN ORDERED. PATIENT CALMED DOWN, WHEELED HIMSELF BACK TO HIS ROOM. SECURITY WAS CALLED TO THE UNIT AT THIS TIME AND TALKED TO THE PATIENT WITH REGARDS TO THE ISOLATION PRECAUTION AND THAT HE CANNOT BE OUT OF HIS ROOM. PATIENT BECAME AGITATED AND VERBALLY ABUSIVE AND AGGRESSIVE AND EVEN THREATENED THE 2 SECURITY SAYING "I WILL GET MY BOYS AND HAVE THOSE BITCHES KICKED." WHEN THE 2 SECURITY FOLLOWED UP WITH THE PATIENT'S THREAT, PATIENT SAID HE SAID NOTHING. PATIENT THEN VERBALIZED UNDERSTANDING OF HIS ISOLATION.
[2017-03-26 04:00] VITALS: BP 112/70
--- NOTE | 2017-03-26 05:54 | NUR ---
RN NOTES PATIENT SCREAMING AND YELLING DOWN THE HALLWAY. PATIENT INSISTING AND DEMANDING FOR HIM TO BE DISCONNECTED FROM IV WITH ATB INFUSING SCHEDULED. ACCORDING TO THE PATIENT HE DOES NOT WANT ANYTHING ON HIS ARM AND THAT IT IS HURTING. ASSESSED SILVIO MIDLINE SITE AND NO ACUTE SIGNS OF INFECTION NOTED, MIDLINE FLUSHING WELL. PRIOR TO ADMINISTRATION OF THE ATB, MIDLINE DRESSING WAS REDRESSED D/T THE DRESSING WAS BEING DETACHED. DURING THE MIDLINE DRESSING PROCESS, PATIENT SAID TO THE NURSE "WHY ARE YOU BOTHERING TO FIX THAT THING, YOU MIGHT WELL REMOVE IT BECAUSE THERE IS NO USE FOR IT NOW." INFORMED PATIENT THAT HE IS STILL GETTING ATB AND IS STILL IN NEED OF THE IV SITE. RISKS AND BENEFITS EXPLAINED BUT PATIENT WAS INDIFFERENT. CN MADE AWARE. PATIENT REFUSING IV ATB, VERBAL AGGRESSIVENESS AND AGITATION OBSERVED.
[2017-03-26 06:31] LABS: EOSINOPHILS % (AUTO) 0.4 % (0.0-6.0); LYMPHOCYTES # (AUTO) 0.3 /CMM (0.8-4.8); LYMPHOCYTES % (AUTO) 17.9 % (20.0-44.0); MEAN CORPUSCULAR HEMOGLOBIN 32 PG (26.0-33.0); MEAN CORPUSCULAR HGB CONC 34 g/dl (31.0-36.0); MEAN CORPUSCULAR VOLUME 93 fL (80-96); MONOCYTES # (AUTO) 0.1 /CMM (0.1-1.30); MONOCYTES % (AUTO) 6.9 % (2.0-12.0); NEUTROPHILS # (AUTO) 1.2 /CMM (1.8-8.9); NEUTROPHILS % (AUTO) 74.8 % (43.0-81.0); PLATELET COUNT (AUTO) 70 /CMM (150-450); RDW COEFFICIENT OF VARIATION 16.5 (11.5-15.0)
[2017-03-26 06:51] LABS: CALCIUM, SERUM 7.5 mg/dL (8.5-10.1); CREATININE 0.9 mg/dL (0.6-1.3); MAGNESIUM 1.9 mg/dL (1.8-2.4); PHOSPHORUS 2.1 mg/dL (2.5-4.9); POTASSIUM 4.4 mmol/L (3.5-5.1)
--- NOTE | 2017-03-26 07:05 | NUR ---
RN INITIAL NOTE PATIENT RECEIVED IN BED RESTING. NO S/S OF PAIN OR DISCOMFORT. ABLE TO MAKE NEEDS KNOWN. RESPIRATIONS ARE EVEN AND UNLABORED. NO S/S OF SOB OR RESPIRATORY DISTRESS. SATING WELL ON ROOM AIR. SKIN IS WARM AND DRY TO TOUCH. IV SITE FLUSHED, PATENT. SAFETY PRECAUTIONS IMPLEMENTED, BED IN LOCKED, LOW POSITION WITH TWO SIDE RAILS UP. CALL LIGHT AND BELONGINGS WITHIN EASY REACH. WILL CONTINUE TO MONITOR.
[2017-03-26 07:41] LABS: RED BLOOD CELL COUNT(AUTO) 1.93 MIL/uL (4.5-6.0)
[2017-03-26 07:43] LABS: HEMATOCRIT 18 % (39-51); HEMOGLOBIN 6.1 g/dL (13.5-17.5); WHITE BLOOD COUNT (AUTO) 1.7 K/uL (4.3-11.0)
[2017-03-26 07:52] LABS: BAND % (MANUAL) 5 % (0.0-5.0); LYMPHOCYTES % (MANUAL) 18 % (16-48); MONOCYTES % (MANUAL) 5 % (0-11.0); NEUTROPHILS % (MANUAL) 72 (42-76)
[2017-03-26 08:00] VITALS: BP 96/68
--- NOTE | 2017-03-26 10:22 | NUR ---
ZOEY contacted Adrienne, home health care case manager at [facility] [phone] and left him a voicemail message stating that pt. is no longer in isolation and has no IV's or medications at this time. ZOEY informed Adrienne that pt. is going to be discharged today and to contact ZOEY if he has a board and care available for pt. if not pt. will be offered homeless retirement placement and resources upon discharge.
[2017-03-26 16:00] VITALS: BP 112/75
--- NOTE | 2017-03-26 19:08 | NUR ---
RN CLOSING NOTE CARRIED OUT ALL MD ORDERS, ANTICIPATED PATIENTS NEEDS. KEPT PATIENT CLEAN AND DRY. SAFETY PRECAUTIONS IN PLACE AT ALL TIMES. ISOLATION PRECAUTIONS OBSERVED ALWAYS. WILL GIVE REPORT TO PM RN FOR SUNNY
--- NOTE | 2017-03-26 19:30 | NUR ---
MS RN INITIAL NOTES RECEIVED PATIENT AWAKE, A/OX3, ABLE TO MAKE NEEDS KNOWN. PATIENT ON WHEELCHAIR, WHEELING AROUND HOSPITAL. DENIES SOB. WITH C/O PAIN 01/30. SKIN WARM AND DRY TOUCH. WILL CONTINUE TO MONITOR.
[2017-03-26 20:00] VITALS: BP 100/64
--- NOTE | 2017-03-26 23:45 | NUR ---
RN NOTES [id number] BLOOD BANK CALLED TO NOTIFY RN THAT BLOOD WILL BE ORDERED FROM [facility] DUE TO ANTIBODIES; MALIKA PRIMARY RN MADE AWARE
[2017-03-27] VITALS (7 sets, daily range): BP systolic 94–103; BP diastolic 59–67
[2017-03-27 06:42] LABS: BASOPHILS % (AUTO) 0.1 % (0.0-2.0); EOSINOPHILS % (AUTO) 0.6 % (0.0-6.0); LYMPHOCYTES # (AUTO) 0.4 /CMM (0.8-4.8); LYMPHOCYTES % (AUTO) 10.3 % (20.0-44.0); MEAN CORPUSCULAR HEMOGLOBIN 31 PG (26.0-33.0); MEAN CORPUSCULAR HGB CONC 34 g/dl (31.0-36.0); MEAN CORPUSCULAR VOLUME 94 fL (80-96); MONOCYTES # (AUTO) 0.1 /CMM (0.1-1.30); MONOCYTES % (AUTO) 2.7 % (2.0-12.0); NEUTROPHILS % (AUTO) 86.3 % (43.0-81.0); PLATELET COUNT (AUTO) 77 /CMM (150-450); RDW COEFFICIENT OF VARIATION 17.3 (11.5-15.0); WHITE BLOOD COUNT (AUTO) 3.4 K/uL (4.3-11.0)
[2017-03-27 06:54] LABS: CALCIUM, SERUM 7.7 mg/dL (8.5-10.1); CREATININE 0.7 mg/dL (0.6-1.3); MAGNESIUM 1.7 mg/dL (1.8-2.4); PHOSPHORUS 1.8 mg/dL (2.5-4.9); POTASSIUM 4.5 mmol/L (3.5-5.1)
[2017-03-27 07:11] LABS: HEMATOCRIT 20 % (39-51); HEMOGLOBIN 6.6 g/dL (13.5-17.5)
--- NOTE | 2017-03-27 07:11 | NUR ---
MS RN CLOSING NOTES NO SIGNIFICANT CHANGES OVERNIGHT. NO ACTIVE BLEEDING NOTED. PAIN MONITORED AND MANAGED NEEDED. DENIES SOB. ALL NEEDS ANTICIPATED AND MET. CALLED LAB TO F/U REGARDING BLOOD, PER BLOOD BANK, BLOOD IS STILL NOT READY. RECEIVED CALL FROM LAB REGARDING HGB 6.6, INCREASED FROM PREVIOUS. SKIN WARM AND DRY TO TOUCH. WITH SILVIO MIDLINE PATENT AND INTACT, TKO. PATIENT INDEPENDENT WITH ADLS. ASSISTED NEEDED. SIDE RAILS UP AND LOCKED. BED KEPT AT LOWEST POSITION. CALL LIGHT KEPT WITHIN EASY REACH. WILL ENDORSE CONTINUITY OF CARE TO AM NURSE.
--- NOTE | 2017-03-27 07:30 | NUR ---
RN NOTES RECEIVED PATIENT IN BED ALERT, AWAKE, ORIENTEDX3 WITH BREATHING NORMAL, EVEN AND UNLABORED. NO SOB NOTED. NO ACUTE DISTRESS NOTES. IV SILVIO MIDLINE IS PATENT AND INTACT, KEPT CLEAN, DRY AND COMFORTABLE. ALL NEEDS ATTENDED. CALL LIGHT WITH IN REACH. WILL CONT TO MONITOR.
[2017-03-27 08:44] LABS: BAND % (MANUAL) 7 % (0.0-5.0); LYMPHOCYTES % (MANUAL) 4 % (16-48); MONOCYTES % (MANUAL) 3 % (0-11.0); NEUTROPHILS % (MANUAL) 86 (42-76)
--- NOTE | 2017-03-27 12:00 | NUR ---
RN NOTES RECEIVED ORDER FROM DR CARRINGTON TO TRANSFUSE 1 UNIT PRBC, CALLED BLOOD BANK BY CHARGE NURSE SOON. WILL CONT TO MONITOR.
--- NOTE | 2017-03-27 15:00 | NUR ---
RN NOTES F/U WITH BLOOD BANK, STILL 1 UNIT PRBC NOT READY. WILL CONT TO MONITOR.
--- NOTE | 2017-03-27 18:30 | NUR ---
RN NOTES F/U WITH BLOOD BANK, SPOKE WITH DEJAN. PER DEJAN STILL 1 UNIT PRBC NOT READY. WILL ENDORSE TO NEXT SHIFT TO F/U.
--- NOTE | 2017-03-27 19:10 | NUR ---
RN OPENING NOTES RECEIVED REPORT FROM AM RN. PATIENT A/A/O X4, ABLE TO MAKE NEEDS KNOWN. BREATHING EVEN & UNLABORED, ON ROOM AIR. DENIES SOB OR DIFFICULTY BREATHING. PULSES PRESENT. RIGHT UPPER ARM MIDLINE PATENT W/ DRESSING CDI & ON SALINE LOCK. DENIES ANY PAIN OR DISCOMFORT @ THIS TIME. SAFETY MEASURES IN PLACE W/ SIDE RAILS UP, BED LOCKED IN LOWEST POSITION & CALL LIGHT WITHIN REACH.
--- NOTE | 2017-03-27 19:24 | NUR ---
RN NOTES: PATIENT ENDORSED TO NEXT SHIFT IN STABLE CONDITION WITH BREATHING NORMAL EVEN AND UNLABORED. NO SOB NOTED. NO ACUTE DISTRESS NOTED. KEPT CLEAN DRY AND COMFORTABLE. ALL NEEDS ATTENDED. SAFETY MEASURES OBSERVED. CALL LIGHT WITH IN REACH. WILL CONTINUE TO MONITOR.
--- NOTE | 2017-03-27 23:11 | NUR ---
RN NOTES PRBC CHECKED AND VERIFIED W/ SECOND RN. BLOOD TRANSFUSION STARTED. NO INITIAL ADVERSE EFFECTS NOTED. WILL CONTINUE TO MONITOR.
[2017-03-28] VITALS (8 sets, daily range): BP systolic 98–108; BP diastolic 58–75
--- NOTE | 2017-03-28 01:30 | NUR ---
RN NOTES PATIENT TOOK LIDOCAINE PATCH OFF BECAUSE HE WAS ANGRY THAT HE STILL FEELS PAIN ALL OVER HIS BODY AND STATED, "THE PATCH DOESN'T DO ANYTHING FOR ME." CONTINUES TO DEMAND NURSES TO CALL THE MD EVEN THOUGH ON-CALL MD, PAULINE STEPHENS WAS ALREADY CALLED & GAVE NEW ORDER FOR THE LIDOCAINE PATCH.
--- NOTE | 2017-03-28 02:19 | NUR ---
RN NOTES BLOOD TRANSFUSION ENDED W/ NO ADVERSE EFFECTS NOTED THROUGHOUT TRANSFUSION. PATIENT TOLERATED WELL.
[2017-03-28 06:30] LABS: EOSINOPHILS % (AUTO) 0.9 % (0.0-6.0); HEMATOCRIT 22 % (39-51); HEMOGLOBIN 7.2 g/dL (13.5-17.5); LYMPHOCYTES # (AUTO) 0.4 /CMM (0.8-4.8); LYMPHOCYTES % (AUTO) 8.5 % (20.0-44.0); MEAN CORPUSCULAR HEMOGLOBIN 31 PG (26.0-33.0); MEAN CORPUSCULAR HGB CONC 33 g/dl (31.0-36.0); MEAN CORPUSCULAR VOLUME 93 fL (80-96); MONOCYTES # (AUTO) 0.2 /CMM (0.1-1.30); MONOCYTES % (AUTO) 4.4 % (2.0-12.0); NEUTROPHILS # (AUTO) 3.7 /CMM (1.8-8.9); NEUTROPHILS % (AUTO) 86.2 % (43.0-81.0); PLATELET COUNT (AUTO) 94 /CMM (150-450); RDW COEFFICIENT OF VARIATION 16.5 (11.5-15.0); RED BLOOD CELL COUNT(AUTO) 2.37 MIL/uL (4.5-6.0); WHITE BLOOD COUNT (AUTO) 4.3 K/uL (4.3-11.0)
[2017-03-28 06:31] LABS: CALCIUM, SERUM 7.3 mg/dL (8.5-10.1); CREATININE 0.6 mg/dL (0.6-1.3); MAGNESIUM 1.5 mg/dL (1.8-2.4); PHOSPHORUS 1.4 mg/dL (2.5-4.9); POTASSIUM 4.2 mmol/L (3.5-5.1)
--- NOTE | 2017-03-28 07:15 | NUR ---
MS RN OPENING RECEIVED PATIENT A/OX4 AGITATED AND STATES PAIN ALL OVER BODY. UPDATED PATIENT ON MEDICATIONS THAT ARE AVAILABLE TO HIM AND PATIENT IS AGREEABLE TO TAKE NORCO IN THE AM. PATIENT STATES FRUSTRATION BEING IN HOSPITAL AND WANTS TO TALK TO CASE MANAGMENT; MESSAGE LEFT FOR CM. ALL NEEDS IN REACH. PATIENT IN WHEELCHAIR AT THIS TIME. WILL ROUND Q2H OR LESS PER NEEDS.
[2017-03-28 09:18] LABS: BAND % (MANUAL) 7 % (0.0-5.0); EOSINOPHILS % (MANUAL) 3 % (0-4); LYMPHOCYTES % (MANUAL) 6 % (16-48); MONOCYTES % (MANUAL) 4 % (0-11.0); NEUTROPHILS % (MANUAL) 80 (42-76)
--- NOTE | 2017-03-28 14:55 | NUR ---
ZOEY received a call from pt's RN Reuben informing ZOEY that pt. is interested in speaking to hospice now. Earlier pt. refused hospice, however he would like to speak with them now. ZOEY informed corrections caseworker Ashutosh regarding pt. wanting to speak with hospice agency. construction sales manager Ashutosh to follow up.
--- NOTE | 2017-03-28 18:39 | NUR ---
MS RN CLOSING PATIENT STABLE. PAIN CONTROLLED WITH PRN MEDICATIONS AND NON PHARM MEASURES. ALL DUE MEDS GIVEN PATIENT WILL TOLERATE. ALL NEEDS MET AND PATIENT IN WHEELCHAIR AT THIS TIME. CARE WILL BE ENDORSED TO RN FOR SUNNY
[2017-03-29 04:00] VITALS: BP 103/69
--- NOTE | 2017-03-29 06:25 | NUR ---
END OF SHIFT SUMMERY: PT IS A&O X3 . COMPLAINS OF CHRONIC PAIN THAT IS CONTROLLED WITH NORCO PRESCRIBED.PATIENT IS NOT COMPLIANT AND REINFORCEMENT OF EDUCATION IS NEEDED. NO ACUTE RESPIRATORY/CARDIAC DISTRESS NOTED. WILL CONTINUE TO MONITOR AND ENDORSE PATIENT TO NEXT NURSE TO CONTINUE THE CARE.
[2017-03-29 08:00] VITALS: BP 102/69
--- NOTE | 2017-03-29 08:15 | NUR ---
RN OPENING NOTES RECEIVED PATIENT RESTING COMFORTABLY IN BED WITH EYES CLOSED. EASILY AROUSABLE. PATIENT HAS CHRONIC PAIN AND IS CONTROLLED WITH NORCO. WILL IMPLEMENT PAIN CONTROL MEASURES. SILVIO MIDLINE PATENT AND INTACT. DENIES SOB AND CP. NO ACUTE DISTRESS NOTED. RESPIRATIONS EVEN AND UNLABORED. BED LOCKED IN THE LOWEST POSITION WITH SIDE RAILS UPX2. CALL LIGHT WITHIN REACH. WILL CONTINUE TO MONITOR, ASSESS AND EDUCATE PATIENT THROUGHOUT SHIFT.
--- NOTE | 2017-03-29 08:48 | NUR ---
RN NON ADMIN NOTES PT HAVING SEVERE DIARRHEA. COLACE HELD. PATIENT AWARE.
--- NOTE | 2017-03-29 10:05 | NUR ---
RN NON ADMIN NOTES PATIENT REFUSED TO TAKE MEPRON SUSPENSION, LIDOCAINE PATCH, AND FULL DOSE (200MG) OF FLUCONAZOLE. ONLY 100MG GIVEN. PHARMACY AWARE.
[2017-03-29 16:00] VITALS: BP 122/76
--- NOTE | 2017-03-29 16:52 | NUR ---
RN NOTES BLOOD DRAWN. LAB CALLED FOR BAND CUTTER. WILL WAIT FOR H/H RESULT BEFORE GIVING EPOGEN.
[2017-03-29 17:02] LABS: BASOPHILS % (AUTO) 0.3 % (0.0-2.0); EOSINOPHILS # (AUTO) 0.1 /CMM (0.0-0.7); EOSINOPHILS % (AUTO) 2.2 % (0.0-6.0); HEMATOCRIT 27 % (39-51); HEMOGLOBIN 8.7 g/dL (13.5-17.5); LYMPHOCYTES # (AUTO) 0.5 /CMM (0.8-4.8); LYMPHOCYTES % (AUTO) 9.4 % (20.0-44.0); MEAN CORPUSCULAR HEMOGLOBIN 31 PG (26.0-33.0); MEAN CORPUSCULAR HGB CONC 33 g/dl (31.0-36.0); MEAN CORPUSCULAR VOLUME 94 fL (80-96); MONOCYTES # (AUTO) 0.4 /CMM (0.1-1.30); MONOCYTES % (AUTO) 8.5 % (2.0-12.0); NEUTROPHILS # (AUTO) 3.9 /CMM (1.8-8.9); NEUTROPHILS % (AUTO) 79.6 % (43.0-81.0); PLATELET COUNT (AUTO) 146 /CMM (150-450); RDW COEFFICIENT OF VARIATION 18.9 (11.5-15.0); RED BLOOD CELL COUNT(AUTO) 2.82 MIL/uL (4.5-6.0); WHITE BLOOD COUNT (AUTO) 4.9 K/uL (4.3-11.0)
--- NOTE | 2017-03-29 17:30 | NUR ---
RN CLOSING NOTES PATIENT RESTING COMFORTABLY IN BED WITH EYES CLOSED. PATIENT HAS CHRONIC PAIN AND IS CONTROLLED WITH NORCO. SILVIO MIDLINE PATENT AND INTACT. DENIES SOB AND CP. NO ACUTE DISTRESS NOTED. RESPIRATIONS EVEN AND UNLABORED. DENIES CP. DENIES SOB. ALL NEEDS MET. ALL MEDS GIVEN APPROPRIATE. PATIENT HAS ISSUE WITH COMPLIANCE. CONDITION REMAINS UNCHANGED. WILL ENDORSE TO NIGHT RN FOR SUNNY.
--- NOTE | 2017-03-29 17:42 | NUR ---
RN NON ADMIN NOTES PATIENT HAS DIARRHEA. WILL HOLD COLACE. PATIENT AWARE.
[2017-03-29 18:12] LABS: CALCIUM, SERUM 8.5 mg/dL (8.5-10.1); CREATININE 0.8 mg/dL (0.6-1.3); MAGNESIUM 1.9 mg/dL (1.8-2.4); PHOSPHORUS 4.4 mg/dL (2.5-4.9)
[2017-03-29 20:00] VITALS: BP 112/77
[2017-03-29 21:59] LABS: BAND % (MANUAL) 3 % (0.0-5.0); EOSINOPHILS % (MANUAL) 1 % (0-4); LYMPHOCYTES % (MANUAL) 10 % (16-48); MONOCYTES % (MANUAL) 11 % (0-11.0); NEUTROPHILS % (MANUAL) 75 (42-76)
[2017-03-30 04:00] VITALS: BP 113/75
--- NOTE | 2017-03-30 06:33 | NUR ---
END OF SHIFT SUMMERY: PT IS A&O X3 . COMPLAINS OF CHRONIC PAIN THAT IS CONTROLLED WITH NORCO PRESCRIBED.PATIENT IS MORE CALM AND COMPLIANT WITH PAIN MEDICATION. NO ACUTE RESPIRATORY/CARDIAC DISTRESS NOTED. WILL CONTINUE TO MONITOR AND ENDORSE PATIENT TO NEXT NURSE TO CONTINUE THE CARE.
[2017-03-30 08:00] VITALS: BP 124/86
--- NOTE | 2017-03-30 08:10 | NUR ---
ms rn initial notes Received patient in bed, awake, head of bed elevated, no SOB or distress noted, on room air and tolerated well. SILVIO midline intact and patent. Alert and oriented x 3, verbally abusive to staff. Kept patient clean and comfortable in bed, call light with in patient reach, will continue to monitor accordingly.
[2017-03-30 09:40] LABS: EOSINOPHILS # (AUTO) 0.1 /CMM (0.0-0.7); EOSINOPHILS % (AUTO) 3.8 % (0.0-6.0); HEMATOCRIT 28 % (39-51); HEMOGLOBIN 8.9 g/dL (13.5-17.5); LYMPHOCYTES # (AUTO) 0.4 /CMM (0.8-4.8); LYMPHOCYTES % (AUTO) 12.6 % (20.0-44.0); MEAN CORPUSCULAR HEMOGLOBIN 30 PG (26.0-33.0); MEAN CORPUSCULAR HGB CONC 32 g/dl (31.0-36.0); MEAN CORPUSCULAR VOLUME 94 fL (80-96); MONOCYTES # (AUTO) 0.3 /CMM (0.1-1.30); MONOCYTES % (AUTO) 7.2 % (2.0-12.0); NEUTROPHILS # (AUTO) 2.7 /CMM (1.8-8.9); NEUTROPHILS % (AUTO) 76.4 % (43.0-81.0); PLATELET COUNT (AUTO) 144 /CMM (150-450); RDW COEFFICIENT OF VARIATION 20.1 (11.5-15.0); RED BLOOD CELL COUNT(AUTO) 2.92 MIL/uL (4.5-6.0); WHITE BLOOD COUNT (AUTO) 3.5 K/uL (4.3-11.0)
[2017-03-30 09:55] LABS: CALCIUM, SERUM 8.1 mg/dL (8.5-10.1); CREATININE 0.7 mg/dL (0.6-1.3); PHOSPHORUS 4.3 mg/dL (2.5-4.9); POTASSIUM 4.6 mmol/L (3.5-5.1)
[2017-03-30 16:00] VITALS: BP 116/78
--- NOTE | 2017-03-30 19:14 | NUR ---
ms rn closing notes All needs provided, attended, and anticipated. Kept patient clean and comfortable in bed, call light with in patient reach, will continue to monitor accordingly. Endorsed to next shift RN to continue care.
[2017-03-30 20:00] VITALS: BP 112/72
[2017-03-31 04:00] VITALS: BP 115/87
--- NOTE | 2017-03-31 06:32 | NUR ---
END OF SHIFT SUMMERY: PT IS A&O X3 . IN A STABLE CONDITION. COMPLAINS OF CHRONIC BACK PAIN THAT IS CONTROLLED WITH DILAUDID PO PRESCRIBED. NO ACUTE RESPIRATORY/CARDIAC DISTRESS NOTED. WILL CONTINUE TO MONITOR AND ENDORSE PATIENT TO NEXT NURSE TO CONTINUE THE CARE.
[2017-03-31 06:37] LABS: BASOPHILS % (AUTO) 0.3 % (0.0-2.0); EOSINOPHILS # (AUTO) 0.1 /CMM (0.0-0.7); EOSINOPHILS % (AUTO) 3.3 % (0.0-6.0); HEMATOCRIT 29 % (39-51); HEMOGLOBIN 9.5 g/dL (13.5-17.5); LYMPHOCYTES # (AUTO) 0.5 /CMM (0.8-4.8); LYMPHOCYTES % (AUTO) 13.9 % (20.0-44.0); MEAN CORPUSCULAR HEMOGLOBIN 31 PG (26.0-33.0); MEAN CORPUSCULAR HGB CONC 33 g/dl (31.0-36.0); MEAN CORPUSCULAR VOLUME 95 fL (80-96); MONOCYTES # (AUTO) 0.4 /CMM (0.1-1.30); MONOCYTES % (AUTO) 12.2 % (2.0-12.0); NEUTROPHILS # (AUTO) 2.5 /CMM (1.8-8.9); NEUTROPHILS % (AUTO) 70.3 % (43.0-81.0); PLATELET COUNT (AUTO) 146 /CMM (150-450); RDW COEFFICIENT OF VARIATION 19.4 (11.5-15.0); WHITE BLOOD COUNT (AUTO) 3.5 K/uL (4.3-11.0)
[2017-03-31 07:01] LABS: CALCIUM, SERUM 7.8 mg/dL (8.5-10.1); CREATININE 0.9 mg/dL (0.6-1.3); MAGNESIUM 1.9 mg/dL (1.8-2.4); PHOSPHORUS 4.1 mg/dL (2.5-4.9); POTASSIUM 4.4 mmol/L (3.5-5.1)
--- NOTE | 2017-03-31 07:12 | NUR ---
RN INITIAL NOTES: REC'D PT AWAKE ON BED, NOT IN ANY DISTRESS, A/O X3, ABLE TO MAKE NEEDS KNOWN. PT ON ROOM AIR, NO SOB. HAS SILVIO MIDLINE, SL, FLUSHED, PATENT & INTACT W/ NO S/SX OF INFECTION OR INFILTRATION NOTED. PROVIDED COMFORT & SAFETY MEASURES. BED KEPT LOW & IN LOCKED POS. CALL LIGHT W/IN REACH. WILL CONTINUE TO MONITOR AND ATTEND NEEDS OF THE PT.
[2017-03-31 08:00] VITALS: BP 103/73
--- NOTE | 2017-03-31 08:30 | NUR ---
RN NOTES: PT REFUSED SOME OF HIS MEDICATIONS. EXPLAINED RISK OF REFUSING MEDICATION BUT STILL INSIST, RESPECTED PT'S RIGHTS.
[2017-03-31 10:45] LABS: BAND % (MANUAL) 1 % (0.0-5.0); EOSINOPHILS % (MANUAL) 1 % (0-4); LYMPHOCYTES % (MANUAL) 18 % (16-48); MONOCYTES % (MANUAL) 8 % (0-11.0); NEUTROPHILS % (MANUAL) 72 (42-76)
--- NOTE | 2017-03-31 12:08 | NUR ---
ZOEY and case marva Boykin met with pt. bedside to discuss discharge plan. Pt. states that he is willing to look into hospice care. [facility] hospice will be coming to speak with pt. today.
[2017-03-31 16:00] VITALS: BP 112/73
--- NOTE | 2017-03-31 19:00 | NUR ---
RN CLOSING NOTES: NO ACUTE CHANGES NOTED W/IN SHIFT. PT TOLERATED ROOM AIR, NO SOB. SILVIO MIDLINE, KEPT PATENT & INTACT W/ NO S/SX OF INFECTION OR INFILTRATION NOTED. KEPT WELL RESTED. NEEDS ATTENDED. [facility] ABLE TO SPEAK W/ THE PT. BED KEPT LOW & IN LOCKED POS. CALL LIGHT W/IN REACH. ENDORSED TO PM RN FOR SUNNY.
--- NOTE | 2017-03-31 19:28 | NUR ---
RN MS INITIAL NOTE PT REMAINS IN NO ACUTE DISTRESS AT THIS TIME. WHEN ARRIVED IN PT ROOM HE WAS HANGING OFF OF THE BED AND POSTURE WAS FIXED WELL PLACED A GOWN ON HIM. PT WAS DROWSY WHILE SPEAKING TO HIM BUT ABLE TO MAKE NEEDS KNOWN. PT IS ABLE TO TRANSFER TO WHEELCHAIR IF NEEDED. SILVIO MIDLINE IS CLEAN DRY AND INTACT. COMFORT AND SAFETY MEASURES TO BE PLACED. WILL CONTINUE TO MONITOR FOR CHANGES.
[2017-03-31 20:00] VITALS: BP 127/86
[2017-04-01 04:00] VITALS: BP 124/83
--- NOTE | 2017-04-01 05:53 | NUR ---
RN MS CLOSING NOTE PT REMAINS IN NO ACUTE DISTRESS. AT TIMES DURING THE SHIFT HE DID SEEM CONFUSED/LETHARGIC BUT STATED THAT IS WHAT SOME OF THE PRN MEDICATIONS DO TO HIM WHEN TAKEN. ALL DUE MEDICATIONS GIVEN ORDERED. ALL VITALS WNL. PAIN ATTENDED TO WHEN BROUGHT UP. SAFETY AND COMFORT MEASURES ENSURED DURING THE SHIFT. WILL ENDORSE CARE TO AM NURSE.
[2017-04-01 05:58] LABS: BASOPHILS % (AUTO) 0.3 % (0.0-2.0); EOSINOPHILS # (AUTO) 0.2 /CMM (0.0-0.7); EOSINOPHILS % (AUTO) 4.2 % (0.0-6.0); HEMATOCRIT 31 % (39-51); HEMOGLOBIN 10.1 g/dL (13.5-17.5); LYMPHOCYTES # (AUTO) 0.6 /CMM (0.8-4.8); LYMPHOCYTES % (AUTO) 14.2 % (20.0-44.0); MEAN CORPUSCULAR HEMOGLOBIN 31 PG (26.0-33.0); MEAN CORPUSCULAR HGB CONC 33 g/dl (31.0-36.0); MEAN CORPUSCULAR VOLUME 94 fL (80-96); MONOCYTES # (AUTO) 0.7 /CMM (0.1-1.30); MONOCYTES % (AUTO) 18.1 % (2.0-12.0); NEUTROPHILS # (AUTO) 2.5 /CMM (1.8-8.9); NEUTROPHILS % (AUTO) 63.2 % (43.0-81.0); PLATELET COUNT (AUTO) 151 /CMM (150-450); RDW COEFFICIENT OF VARIATION 18.8 (11.5-15.0); RED BLOOD CELL COUNT(AUTO) 3.29 MIL/uL (4.5-6.0); WHITE BLOOD COUNT (AUTO) 3.9 K/uL (4.3-11.0)
[2017-04-01 06:30] LABS: BAND % (MANUAL) 8 % (0.0-5.0); EOSINOPHILS % (MANUAL) 2 % (0-4); LYMPHOCYTES % (MANUAL) 12 % (16-48); METAMYELOCYTES % 2 % (0-0); MONOCYTES % (MANUAL) 14 % (0-11.0); NEUTROPHILS % (MANUAL) 62 (42-76)
[2017-04-01 08:00] VITALS: BP 94/51
--- NOTE | 2017-04-01 12:04 | NUR ---
ZOEY contacted [facility] placement and spoke to Yelitza who informed ZOEY that they do have two male beds available at this time. Yelitza informed ZOEY that pt. would not have to pay for living there and laundry soap and toiletries will be provided for the client. Yelitza requested for SW to have the physician form, and other requested forms completed by physician and fax it to her at . ZOEY contacted pt's doctor Yeyo and informed him regarding the forms. ARCHIE Orona stated he will complete and sign the forms requested of him.
[2017-04-01 13:33] VITALS: BP 94/51
--- NOTE | 2017-04-01 14:25 | NUR ---
[facility] will not be able to consider pt. for another week. ZOEY along with case assistant Ashutosh and JUAN ANTONIO Kearns met with pt. bedside to discuss discharge plan. ZOEY offered pt. detention placement at [facility] located at [address] [place] [address] in [place] . ZOEY informed pt. they are open at 6PM until 7 AM daily. Pt. accepted detention placement and will be transported via taxi this evening. Pt. will receive an early dinner prior to discharge. ZOEY also gave pt. list of homeless resources, list of food resources for [facility], HIV clinics and resources and list of Methadone programs.
--- NOTE | 2017-04-01 18:22 | NUR ---
pt discharged to alf with all belongings and discharge instructions . mcduffie of 450 dollars given to patient.pt. in stable condition.
== END 2017-04-01 17:49 | disposition home or self-care (01) | DRG 890 ==
LOC: ER 00:22 → TELE-TD 06:05 → MEDSG1 02-27 09:03 → MED 03-05 08:51 → MEDSG1 03-05 21:32
PROVIDERS: ADMIT Internal Medicine; ATTEND Internal Medicine
PROC: 30233N1 Transfusion of Nonautologous Red Blood Cells into Peripheral Vein, Percutaneous Approach (ICD-10-PCS; principal; 2017-02-26)
PROC: 05H533Z Insertion of Infusion Device into Right Subclavian Vein, Percutaneous Approach (ICD-10-PCS; 2017-03-22)
PROC: 05H933Z Insertion of Infusion Device into Right Brachial Vein, Percutaneous Approach (ICD-10-PCS; 2017-03-26)
DX: A41.02 Sepsis due to Methicillin resistant Staphylococcus aureus (principal); B20 Human immunodeficiency virus [HIV] disease; F29 Unspecified psychosis not due to a substance or known physiological condition; E43 Unspecified severe protein-calorie malnutrition; J90 Pleural effusion, not elsewhere classified; R65.20 Severe sepsis without septic shock; M00.9 Pyogenic arthritis, unspecified; R64 Cachexia; D69.59 Other secondary thrombocytopenia; D63.8 Anemia in other chronic diseases classified elsewhere; G89.29 Other chronic pain; E78.5 Hyperlipidemia, unspecified; Z59.0 Homelessness; B19.20 Unspecified viral hepatitis C without hepatic coma; K21.9 Gastro-esophageal reflux disease without esophagitis; N13.9 Obstructive and reflux uropathy, unspecified; Z66 Do not resuscitate; Z85.89 Personal history of malignant neoplasm of other organs and systems; Z88.2 Allergy status to sulfonamides; Z92.21 Personal history of antineoplastic chemotherapy; Z91.19 Patient's noncompliance with other medical treatment and regimen; R73.9 Hyperglycemia, unspecified; R74.0 Nonspecific elevation of levels of transaminase and lactic acid dehydrogenase [LDH]; F11.20 Opioid dependence, uncomplicated; E03.9 Hypothyroidism, unspecified; Z22.322 Carrier or suspected carrier of Methicillin resistant Staphylococcus aureus; Z68.22 Body mass index [BMI] 22.0-22.9, adult; F19.90 Other psychoactive substance use, unspecified, uncomplicated; D59.9 Acquired hemolytic anemia, unspecified; Z86.61 Personal history of infections of the central nervous system; E88.09 Other disorders of plasma-protein metabolism, not elsewhere classified; A41.1 Sepsis due to other specified staphylococcus; D73.1 Hypersplenism; D53.9 Nutritional anemia, unspecified; B96.89 Other specified bacterial agents as the cause of diseases classified elsewhere; F17.210 Nicotine dependence, cigarettes, uncomplicated; F32.9 Major depressive disorder, single episode, unspecified; E27.40 Unspecified adrenocortical insufficiency; J98.11 Atelectasis; K40.90 Unilateral inguinal hernia, without obstruction or gangrene, not specified as recurrent; M51.36 Other intervertebral disc degeneration, lumbar region; M17.12 Unilateral primary osteoarthritis, left knee; R93.5 Abnormal findings on diagnostic imaging of other abdominal regions, including retroperitoneum
CPT/HCPCS: 36415; 36569; 71010-TC; 73562; 74000-TC; 80048-TC; 80053-TC; 80061-TC; 80076-TC; 80202-TC; 81000-TC; 82272-TC; 82306; 82668; 82728-TC; 82746; 83010; 83540-TC; 83605-TC; 83615-TC; 83735-TC; 84100-TC; 84443-TC; 84484-TC; 84550-TC; 85025-TC; 85027-TC; 85045-TC; 85385-TC; 85396; 85610-TC; 85652-TC; 85730-TC; 86360; 86644; 86645; 86706; 86803; 86850-TC; 86880-TC; 86921-TC; 87040-TC; 87081-TC; 87086-TC; 87177; 87186-TC; 87209; 87340; 93307-TC; 93970-TC; A4216; A4606; A6402; A6403; J0692; J0885; J1170; J1200; J1442; J2020; J2060; J2185; J2405; J2543; J2916; J2930; J3475; J3490; J7030; J7050; J7060; P9016-BL; Q0177; Z7610

== ENCOUNTER 2017-06-01 18:54 | Inpatient (IN) | payer MEDICAID, OTHER ==
[~2017-06-01] VITALS: Ht 180.3 cm; Wt 68.5 kg
[~2017-06-01 18:54] MED LIST changes: -AZIT600T2 PO; +DOCU-141 PO; -DOCU-25 PO; +OXYC-133 PO; -OXYC-34 PO; -ZOLP5TAB7 PO; +ZOLP5TAB8 PO
[2017-06-01] MEDS ORDERED: IV NS 0.9% 1,000 ML BAG IV ONE (20:00)
[2017-06-01 20:08] LABS: EOSINOPHILS # (AUTO) 0.1 /CMM (0.0-0.7); MONOCYTES # (AUTO) 0.2 /CMM (0.1-1.30); WHITE BLOOD COUNT (AUTO) 3.8 K/uL (4.3-11.0)
[2017-06-01 20:12] LABS: BASOPHILS # (AUTO) 0.1 /CMM (0.0-0.2); BASOPHILS % (AUTO) 1.9 % (0.0-2.0); EOSINOPHILS % (AUTO) 2.3 % (0.0-6.0); HEMATOCRIT 38 % (39-51); HEMOGLOBIN 12.3 g/dL (13.5-17.5); LYMPHOCYTES # (AUTO) 0.5 /CMM (0.8-4.8); LYMPHOCYTES % (AUTO) 12.2 % (20.0-44.0); MEAN CORPUSCULAR HEMOGLOBIN 31 PG (26.0-33.0); MEAN CORPUSCULAR HGB CONC 33 g/dl (31.0-36.0); MEAN CORPUSCULAR VOLUME 94 fL (80-96); MONOCYTES % (AUTO) 6.3 % (2.0-12.0); NEUTROPHILS # (AUTO) 2.9 /CMM (1.8-8.9); NEUTROPHILS % (AUTO) 77.3 % (43.0-81.0); PLATELET COUNT (AUTO) 150 /CMM (150-450); RDW COEFFICIENT OF VARIATION 13.1 (11.5-15.0); RED BLOOD CELL COUNT(AUTO) 4.01 MIL/uL (4.5-6.0)
--- NOTE | 2017-06-01 20:15 | NUR ---
C/O PASSING OUT 3X TODAY, NO INJURY, LEFT LEG SWELLING AND PAIN TODAY, NAD NOTED, VSS, PT PUT ON HOSPITAL GOWN AND MONITOR WAITING FOR MD CAMARGO.
[2017-06-01 20:19] LABS: CALCIUM, SERUM 9.2 mg/dL (8.5-10.1); CARBON DIOXIDE 26 mmol/L (21-32); CHLORIDE 103 mmol/L (98-107); CREATININE 0.8 mg/dL (0.6-1.3); GLUCOSE 82 mg/dL (74-106); POTASSIUM 3.9 mmol/L (3.5-5.1); SODIUM SERUM 141 mmol/L (136-145); UREA NITROGEN, BLOOD 17 mg/dL (7-18)
[2017-06-01 20:27] LABS: TROPONIN I < 0.017 ng/mL (0.00-0.056)
[2017-06-01 20:31] LABS: ALANINE AMINOTRANSFERASE 68 U/L (12-78); ALKALINE PHOSPHATASE 127 U/L (46-116); ASPARTATE AMINOTRANSFERASE 115 U/L (15-37); BILIRUBIN,DIRECT 1.6 mg/dL (0.0-0.2); BILIRUBIN,TOTAL 2.2 mg/dL (0.2-1.0); TOTAL PROTEIN, SERUM 8.6 g/dL (6.4-8.2)
[2017-06-01 21:00] LABS: INR 1.07 (0.87-1.13); PROTHROMBIN TIME 11.1 SECS (9.5-12.7)
[2017-06-01] MEDS ORDERED: MORPHINE SULFATE INJ 2 MG/ML DISP.SYRIN IV ONE (22:00)
[2017-06-01] MEDS ORDERED: MORPHINE SULFATE INJ 4 MG/ML DISP.SYRIN ONE (22:03)
--- NOTE | 2017-06-01 22:06 | NUR ---
REPORT GIVEN TO DANYELLE MARADIAGA. VSS FOR TRANSFER
[2017-06-01 22:30] VITALS: BP 98/57
--- NOTE | 2017-06-01 22:30 | NUR ---
MARBLE MACHINE TENDER OPENING NOTES: RECEIVED PT FROM ED. PT IS A/OX4. PT HAS IV ON R AC #18G AND IS PATENT AND INTACT. HAS BEEN FLUSHED. CURRENTLY S/L. CALL LIGHT WITHIN PT'S REACH. BED KEPT IN LOW, LOCKED POSITION, AND SIDE RAILS X 2UP. PROVIDED PT WITH URINAL. WILL CONTINUE TO MONITOR PT.
[2017-06-01 22:45] VITALS: BP 98/57
--- NOTE | 2017-06-01 22:51 | NUR ---
RETAIL SALES ASSOCIATE NOTE: SPOKE TO ARCHIE Salazar AND GOT ORDER FOR NORCO 5 PO Q6H PRN. ALSO, GOT ORDER FOR CARDIAC DIET.
[2017-06-01] MEDS ORDERED: Z GUARD REMEDY 2 OZ OINT TP PRN (23:00)
[2017-06-01] MEDS ORDERED: ZOLPIDEM TARTRATE 5 MG TABLET PO PRN (23:00)
[2017-06-01] MEDS ORDERED: ONDANSETRON HCL/PF 4 MG/2 ML VIAL IVP PRN (23:00)
[2017-06-01] MEDS ORDERED: MAGNESIUM HYDROXIDE 30 ML UDC PO PRN (23:00)
[2017-06-01] MEDS ORDERED: ACETAMINOPHEN 325 MG TABLET PO PRN (23:00)
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
[2017-06-02] MEDS ORDERED: HYDROCODONE/APAP 5/325MG 1 EACH TABLET ONE (00:10)
[2017-06-02] MEDS ORDERED: MORPHINE SULFATE INJ 2 MG/ML DISP.SYRIN ONE (01:48)
[2017-06-02] MEDS: MORPHINE SULFATE INJ 2 MG/ML DISP.SYRIN IV PRN ×5 (03:40→21:05)
[2017-06-02 04:00] VITALS: BP 97/55
[2017-06-02 07:04] LABS: BASOPHILS % (AUTO) 0.4 % (0.0-2.0); EOSINOPHILS # (AUTO) 0.2 /CMM (0.0-0.7); EOSINOPHILS % (AUTO) 11.6 % (0.0-6.0); HEMATOCRIT 31 % (39-51); HEMOGLOBIN 10.3 g/dL (13.5-17.5); LYMPHOCYTES # (AUTO) 0.4 /CMM (0.8-4.8); LYMPHOCYTES % (AUTO) 20.5 % (20.0-44.0); MEAN CORPUSCULAR HEMOGLOBIN 32 PG (26.0-33.0); MEAN CORPUSCULAR HGB CONC 34 g/dl (31.0-36.0); MEAN CORPUSCULAR VOLUME 96 fL (80-96); MONOCYTES # (AUTO) 0.2 /CMM (0.1-1.30); MONOCYTES % (AUTO) 11.9 % (2.0-12.0); NEUTROPHILS # (AUTO) 1.2 /CMM (1.8-8.9); NEUTROPHILS % (AUTO) 55.6 % (43.0-81.0); PLATELET COUNT (AUTO) 112 /CMM (150-450); RDW COEFFICIENT OF VARIATION 14.2 (11.5-15.0); RED BLOOD CELL COUNT(AUTO) 3.17 MIL/uL (4.5-6.0); WHITE BLOOD COUNT (AUTO) 2.1 K/uL (4.3-11.0)
--- NOTE | 2017-06-02 07:25 | NUR ---
NURSING ASSISTANT CLOSING NOTES: ALL NEEDS WERE ATTENDED AND ANTICIPATED FOR. PT IS A/OX4. PT AWAKE AND SITTING UP IN BED. PT HAS IV ON R AC #18G AND IS PATENT AND INTACT. CURRENTLY S/L. HAS BEEN FLUSHED. URINE COLLECTED. CALL LIGHT WITHIN PT'S REACH. PT ON TELE BOX AND IS SR 70S. BED KEPT IN LOW, LOCKED POSITION, AND SIDE RAILS X 2UP. URINAL AT BEDSIDE. WHEELCHAIR AT BEDSIDE. ENDORSED TO AM NURSE FOR SUNNY.
[2017-06-02 07:27] LABS: ALBUMIN 2.7 g/dL (3.4-5.0); BILIRUBIN,TOTAL 1.8 mg/dL (0.2-1.0); CALCIUM, SERUM 8.1 mg/dL (8.5-10.1); CREATININE 0.6 mg/dL (0.6-1.3); MAGNESIUM 1.9 mg/dL (1.8-2.4); POTASSIUM 3.5 mmol/L (3.5-5.1); THYROID STIMULATING HORMONE 1.243 uIU/mL (0.358-3.74); TOTAL PROTEIN, SERUM 6.2 g/dL (6.4-8.2)
[2017-06-02 08:00] VITALS: BP 98/60
--- NOTE | 2017-06-02 08:05 | NUR ---
STEEL LOADER NOTES PATIENT IN BED, AWAKE, A/O X4, APPEARS ANXIOUS AND WITH ANGRY BEHAVIOR. TOLERATING ROOM AIR, NO SOB. SINUS RHYTHM HR 76 IN THE MONITOR. BREAKFAST SERVED, CONSUMED 100% OF HIS MEAL. PLACE CALL LIGHT WITHIN REACH. WILL CONT TO MONITOR.
[2017-06-02 08:30] VITALS: BP_SYST 100; BP_SYST 105; BP_SYST 108; BP_DIAS 61; BP_DIAS 71
[2017-06-02] MEDS ORDERED: PREZCOBIX PO SCH ×2 (09:00→14:00)
[2017-06-02] MEDS ORDERED: Medication Not On Formulary EA (Emtricitabine/Tenofov Alafenam (Descovy 200-25 mg Tablet PO SCH (09:00)
[2017-06-02] MEDS ORDERED: DOLUTEGRAVIR SODIUM 50 MG PO SCH ×2 (09:00→14:00)
[2017-06-02 09:25] LABS: BAND % (MANUAL) 1 % (0.0-5.0); EOSINOPHILS % (MANUAL) 2 % (0-4); LYMPHOCYTES % (MANUAL) 11 % (16-48); MONOCYTES % (MANUAL) 9 % (0-11.0); NEUTROPHILS % (MANUAL) 77 (42-76)
[2017-06-02] MEDS ORDERED: BUPROPION XL 150 MG TAB.ER.24 PO SCH (09:28)
[2017-06-02] MEDS ORDERED: hydrOXYzine PAMOATE 25 MG CAPSULE PO PRN (09:30)
[2017-06-02] MEDS: PANTOPRAZOLE 40 MG TABLET.DR PO SCH (09:41)
[2017-06-02] MEDS: GABAPENTIN 300 MG CAPSULE PO SCH ×3 (09:41→16:43)
[2017-06-02] MEDS: FOLIC ACID 1 MG TABLET PO SCH (09:41)
[2017-06-02] MEDS: ZINC SULFATE 220 MG CAPSULE PO SCH (09:41)
[2017-06-02] MEDS: NICOTINE PATCH (21MG) 21 MG PATCH.TD24 TD SCH (09:43)
[2017-06-02] MEDS ORDERED: TRIMETHOPRIM 100 MG TABLET PO SCH (10:00)
[2017-06-02] MEDS: CALCIUM CARB 600MG /VIT D 1 EACH TABLET PO SCH (10:03)
[2017-06-02] MEDS: POTASSIUM CHLORIDE 20 MEQ TAB.PRT.SR PO SCH ×2 (10:04→12:20)
[2017-06-02] MEDS: CHOLECALCIFEROL 1,000 UNIT TABLET (VIT D3) PO SCH (10:04)
[2017-06-02] MEDS: ACYCLOVIR 200 MG CAPSULE PO SCH (10:04)
[2017-06-02] MEDS: IV NS 0.9% 1,000 ML IV SCH ×2 (10:13→15:21)
[2017-06-02] MEDS: ATOVAQUONE SUSP 750 MG/5 ML PACKET PO SCH (12:20)
[2017-06-02] MEDS: clonazePAM 1 MG TABLET PO PRN (13:08)
--- NOTE | 2017-06-02 15:01 | NUR ---
Social Service Consult requested by Dr. Maicol Kent for homelessness. darkroom worker met with the patient bedside. Patient was alert and oriented x3. States that he has been homeless for over a year and has been staying on the streets. Patient is denying suicidal/homicidal ideations as well as auditory/visual hallucinations. Patient states that he wants to be placed into a skilled nursing to address his medical issues. He states that he receives SSI ($847/month) and does not want to go to a [facility] if he can get into a skilled nursing. darkroom worker spoke to the patient's nurse Mikaela and informed her that the patient wants placement in a skilled nursing and stated she will follow up with case management. darkroom worker spoke to Lyla in case management and she stated that she will follow up with the patient.
[2017-06-02] MEDS: HYDROCODONE/APAP 5/325MG 1 EACH TABLET PO PRN ×2 (15:07→23:01)
[2017-06-02 15:28] LABS: APPEARANCE,URINE CLOUDY (CLEAR); BILIRUBIN,URINE 1+ (NEGATIVE); BLOOD, URINE NEGATIVE Ery/uL (NEGATIVE); COLOR,URINE YELLOW (YELLOW); KETONES,URINE NEGATIVE (NEGATIVE); LEUKOCYTE ESTERASE ,URINE NEGATIVE (NEGATIVE); NITRITE, URINE POSITIVE (NEGATIVE); PH,URINE 6.5 (5.0-8.0); PROTEIN,URINE NEGATIVE (NEGATIVE); UGLUCOSE NEGATIVE (NEGATIVE)
[2017-06-02 15:51] LABS: BACTERIA,URINE Few /HPF (None Seen); RBC,URINE 0-2 /HPF (0-2); SQUAMOUS EPITHELIAL CELL,UR Few /HPF (None Seen); URINE AMORPHOUS URATE Moderate /HPF (None Seen); WBC,URINE 0-2 /HPF (0-3)
[2017-06-02 16:00] VITALS: BP 108/64
[2017-06-02] MEDS ORDERED: diphenhydrAMINE HCL 25 MG CAPSULE PO PRN (16:00)
[2017-06-02] MEDS: hydrOXYzine PAMOATE 25 MG CAPSULE PO SCH (16:44)
--- NOTE | 2017-06-02 16:47 | NUR ---
PER PATIENT HIS BACK IS ITCHING A LOT AND HE'S TAKING BENADRYL FOR ITCHING. NOTIFIED DR. VANDANA WALDRON WITH NEW ORDERS GIVEN.
--- NOTE | 2017-06-02 16:51 | NUR ---
SPOKE TO THE PATIENT REGARDING PENDING MEDICATIONS PER PHARMACY. PATIENT STATED HE'S NO LONGER TAKING DESCOVY AND TRIMETHOPRIM. NOTIFIED MD, PHARMACY INFORMED AND DC MEDS.
--- NOTE | 2017-06-02 17:26 | NUR ---
ORTHOSTATIC BP TAKEN AND RECORDED, INFORMED DR. PHAM WITH RESULT.
--- NOTE | 2017-06-02 18:56 | NUR ---
MS RN CLOSING NOTES PATIENT IS A/O X4. IVC IN RIGHT AC G28 PATENT AND INTACT, IVF NS INFUSING AT 200ML/HR TO CONSUMED, ORDERED 2000MLS. PER LAND SURVEYING MANAGER, PATIENT REQUESTING TO STAY IN LONG TERM, CM TO SEE THE PATIENT. MEDICATED PATIENT WITH PRN PAIN MEDICATION DURING THE SHIFT. PLACE CALL LIGHT WITHIN REACH. WILL ENDORSE TO NEXT SHIFT RN FOR SUNNY.
--- NOTE | 2017-06-02 19:30 | NUR ---
MS RN OPENING NOTES: PATIENT IN BED, AOX3, ON ROOM AIR, BREATHING EVEN AND UNLABORED. APPEARS CALM, IN NO DISTRESS, BUT DOES COMPLAIN OF 7/10 PAIN OVER UPPER LEGS, LOWER BACK AND ELZA KNEES. EXPLAINED SCHEDULE OF PAIN MEDS. ASSISTED TO POSITION FOR COMFORT. PIV OVER RAC G 18 INTACT AND PATENT, INFUSING WELL WITH NS RUNNING AT 200 ML/HR. PROVIDED FOR COMFORT AND SAFETY. BED IN LOWEST AND LOCKED POSITION, SIDERAILS UP X 3. CALL LIGHT WITHIN REACH. WILL CONT TO MONITOR.
[2017-06-02 20:00] VITALS: BP 121/83
--- NOTE | 2017-06-02 21:05 | NUR ---
RN NOTES: PATIENT C/O 8/10 PAIN OVER LOWER BACK, UPPER LEGS AND ELZA KNEES. MORPHINE 2 MG IV ADMINISTERED. WILL CONT TO MONITOR.
--- NOTE | 2017-06-02 23:09 | NUR ---
RN NOTES: PATIENT C/O 7/10 PAIN OVER LOWER BACK, UPPER LEGS AND ELZA KNEES. NORCO 5-325 MG PO ADMINISTERED. GAVE SNACK WELL. WILL CONT TO MONITOR.
[2017-06-03] MEDS: MORPHINE SULFATE INJ 2 MG/ML DISP.SYRIN IV PRN ×3 (01:08→10:54)
[2017-06-03 02:00] VITALS: BP_SYST 103; BP_SYST 108; BP_DIAS 63; BP_DIAS 70; BP_DIAS 75
--- NOTE | 2017-06-03 02:00 | NUR ---
RN NOTES: PATIENT REQUESTED FOR KLONOPIN 1 MG PO FOR ANXIETY AND INABILITY TO SLEEP. CHECKED VS, STABLE AT THIS TIME. ADMINISTERED KLONOPIN 1 MG PO. PROVIDED FOR SAFETY.
[2017-06-03] MEDS: clonazePAM 1 MG TABLET PO PRN (02:06)
--- NOTE | 2017-06-03 06:22 | NUR ---
RN NOTES: PATIENT COMPLAINED OF 8/10 PAIN OVER LOWER BACK AND ELZA KNEES, ADMINISTERED MORPHINE 2 MG IV PRN. PROVIDED FOR COMFORT AND SAFETY. WILL CONT TO MONITOR.
--- NOTE | 2017-06-03 06:58 | NUR ---
MS RN CLOSING NOTES: PATIENT IN BED, AOX3, ON ROOM AIR, BREATHING EVEN AND UNLABORED. APPEARS CALM AND IN NO DISTRESS, BUT STILL COMPLAINS OF MILD PAIN OVER HIS LOWER BACK, ELZA KNEES AND LEGS. PROVIDED FOR COMFORT AND SAFETY. BED IN LOWEST AND LOCKED POSITION, SIDERAILS UP X3. ORTHOSTATIC BP CHECKED, STABLE AND NEGATIVE. PATIENT DID NOT C/O DIZZINESS OR HAD ANY SYNCOPAL EPISODE THROUGH SHIFT. NO ACUTE CHANGE IN CONDITION. WILL ENDORSE TO AM RN FOR SUNNY.
--- NOTE | 2017-06-03 07:50 | NUR ---
MS RN OPENING NOTE PATIENT IS ALERT AND ORIENTED x3. NO PAIN AT THIS TIME. NO SOB OR DISTRESS NOTED. CALL LIGHT WITHIN REACH. SAFETY MEASURES IMPLEMENTED. ABLE TO COMMUNICATE NEEDS. IV ON RIGHT AC INTACT AND INTACT. NO FLUIDS AT THIS TIME. WILL HAVE MRI OF BRAIN WITH OR WITHOUT CONTRAST TODAY. WILL CONTINUE TO MONITOR THROUGHOUT SHIFT
[2017-06-03 08:00] VITALS: BP 92/57
[2017-06-03 08:18] LABS: ALBUMIN 2.6 g/dL (3.4-5.0); BILIRUBIN,TOTAL 0.9 mg/dL (0.2-1.0); CALCIUM, SERUM 8.1 mg/dL (8.5-10.1); CREATININE 0.6 mg/dL (0.6-1.3); MAGNESIUM 1.5 mg/dL (1.8-2.4); PHOSPHORUS 2.2 mg/dL (2.5-4.9); POTASSIUM 4.3 mmol/L (3.5-5.1); TOTAL PROTEIN, SERUM 6.1 g/dL (6.4-8.2)
[2017-06-03 08:19] LABS: TROPONIN I 0.004 ng/mL (0.00-0.056)
[2017-06-03 08:22] LABS: BASOPHILS % (AUTO) 0.1 % (0.0-2.0); EOSINOPHILS # (AUTO) 0.2 /CMM (0.0-0.7); EOSINOPHILS % (AUTO) 16.3 % (0.0-6.0); HEMATOCRIT 30 % (39-51); HEMOGLOBIN 9.7 g/dL (13.5-17.5); LYMPHOCYTES # (AUTO) 0.2 /CMM (0.8-4.8); LYMPHOCYTES % (AUTO) 21.3 % (20.0-44.0); MEAN CORPUSCULAR HEMOGLOBIN 32 PG (26.0-33.0); MEAN CORPUSCULAR HGB CONC 33 g/dl (31.0-36.0); MEAN CORPUSCULAR VOLUME 99 fL (80-96); MONOCYTES # (AUTO) 0.1 /CMM (0.1-1.30); MONOCYTES % (AUTO) 13.8 % (2.0-12.0); NEUTROPHILS # (AUTO) 0.5 /CMM (1.8-8.9); NEUTROPHILS % (AUTO) 48.5 % (43.0-81.0); PLATELET COUNT (AUTO) 86 /CMM (150-450); RDW COEFFICIENT OF VARIATION 14.1 (11.5-15.0); RED BLOOD CELL COUNT(AUTO) 2.99 MIL/uL (4.5-6.0)
[2017-06-03] MEDS: HYDROCODONE/APAP 5/325MG 1 EACH TABLET PO PRN (08:27)
[2017-06-03 08:39] LABS: WHITE BLOOD COUNT (AUTO) 1.1 K/uL (4.3-11.0)
[2017-06-03] MEDS: CHOLECALCIFEROL 1,000 UNIT TABLET (VIT D3) PO SCH (09:55)
[2017-06-03] MEDS: GABAPENTIN 300 MG CAPSULE PO SCH ×2 (09:55→14:10)
[2017-06-03] MEDS: FOLIC ACID 1 MG TABLET PO SCH (09:55)
[2017-06-03] MEDS: ZINC SULFATE 220 MG CAPSULE PO SCH (09:55)
[2017-06-03] MEDS: ATOVAQUONE SUSP 750 MG/5 ML PACKET PO SCH (09:56)
[2017-06-03] MEDS: ACYCLOVIR 200 MG CAPSULE PO SCH (09:56)
[2017-06-03] MEDS: CALCIUM CARB 600MG /VIT D 1 EACH TABLET PO SCH (09:56)
[2017-06-03] MEDS: PANTOPRAZOLE 40 MG TABLET.DR PO SCH (09:56)
[2017-06-03] MEDS: hydrOXYzine PAMOATE 25 MG CAPSULE PO SCH (09:56)
[2017-06-03] MEDS: NICOTINE PATCH (21MG) 21 MG PATCH.TD24 TD SCH (09:57)
--- NOTE | 2017-06-03 10:30 | NUR ---
MS RN NOTE PATIENT REFUSED MAGNESIUM IV PATIENT STATED "YOU'RE TRYING TO KILL ME WITH THAT POISON". INFORMED PHARMACY AND MD WELL CHARGE NURSE.
[2017-06-03] MEDS: Magnesium 1GM/D5W 100ML PREMIX 100 ML IV SCH ×3 (10:36→11:36)
[2017-06-03] MEDS ORDERED: LORAZEPAM 1 MG TABLET PO ONE (11:30)
--- NOTE | 2017-06-03 11:48 | NUR ---
WOUND CARE CONSULT: PT OFF UNIT AT THIS TIME.
[2017-06-03] MEDS ORDERED: MORPHINE SULFATE SR 15 MG TABLET.SA PO SCH (12:00)
[2017-06-03] MEDS ORDERED: oxyCODONE/APAP (5/325 MG) 1 UDTAB TABLET PO PRN (12:00)
[2017-06-03] MEDS ORDERED: K PHOS NEUTRAL 250 MG TABLET PO ONE (13:30)
--- NOTE | 2017-06-03 15:58 | NUR ---
ZOEY met with pt. to follow up regarding discharge plan. ZOEY informed pt. that since no skilled needs are required a longterm facility is not an option and his insurance has declined placement at this time. ZOEY informed pt. his option is the winter long-term at [facility] and informed pt. that the long-term has several pharmacy picking tech times during the evening. Pt. inquired about hospice. ZOEY explained to pt. that during a previous admission Hospice did come to evaluate him, however pt. refused several times. ZOEY reiterated to pt. that at this time his only option is long-term placement. ZOEY will follow up with pt. once he is medically cleared to discuss his discharge plan.
[2017-06-03] MEDS ORDERED: BOOST FOOD- BERRY 237 ML BOX PO SCH (17:00)
--- NOTE | 2017-06-03 18:21 | NUR ---
MS CARD GRADER NOTE PATIENT IS ALERT AND ORIENTED x3. NO PAIN AT THIS TIME. NO SOB OR DISTRESS NOTED. CALL LIGHT WITHIN REACH AT ALL TIMES. SAFETY MEASURES IMPLEMENTED. ABLE TO COMMUNICATE NEEDS. PATIENT REFUSED TO HAVE SKIN PICTURES DONE UPON DISCHARGE. ALL BELONGINGS ACCOUNTED FOR AND WITH PATIENT AT DISCHARGE. ALL DISCHARGE INSTRUCTIONS GIVEN TO PATIENT AND PATIENT GAVE VERBAL UNDERSTANDING BACK. PATIENT WILL BE GOING TO [facility] [place]. IV REMOVED SKIN INTACT
[2017-06-04] MEDS ORDERED: ASCORBIC ACID 500 MG TABLET PO SCH (09:00)
== END 2017-06-03 18:15 | disposition home or self-care (01) | DRG 48 ==
LOC: ER 19:06 → TELE 21:53 → MED 06-02 08:42
PROVIDERS: ADMIT Nurse Practitioner Acute Care; ATTEND Internal Medicine
DX: G90.8 Other disorders of autonomic nervous system (principal); D61.818 Other pancytopenia; D68.9 Coagulation defect, unspecified; B20 Human immunodeficiency virus [HIV] disease; I95.9 Hypotension, unspecified; F11.20 Opioid dependence, uncomplicated; E27.40 Unspecified adrenocortical insufficiency; D64.9 Anemia, unspecified; F17.210 Nicotine dependence, cigarettes, uncomplicated; E78.5 Hyperlipidemia, unspecified; F41.9 Anxiety disorder, unspecified; G89.29 Other chronic pain; I10 Essential (primary) hypertension; K21.9 Gastro-esophageal reflux disease without esophagitis; E80.6 Other disorders of bilirubin metabolism; Z59.0 Homelessness; Z88.2 Allergy status to sulfonamides; R74.0 Nonspecific elevation of levels of transaminase and lactic acid dehydrogenase [LDH]; Z86.19 Personal history of other infectious and parasitic diseases; F19.11 Other psychoactive substance abuse, in remission; K52.9 Noninfective gastroenteritis and colitis, unspecified; Z79.899 Other long term (current) drug therapy
CPT/HCPCS: 36415; 70450-TC; 70551-TC; 71010-TC; 73564-TC; 80048-TC; 80053-TC; 80061-TC; 80076-TC; 81000-TC; 82533; 83735-TC; 84100-TC; 84443-TC; 84484-TC; 85025-TC; 85730-TC; 87081-TC; 87086-TC; 93971-TC; 95819-TC; A4606; J2270; J3475; J7030; Q0163; Q0177; Z7610

== ENCOUNTER 2017-06-19 22:23 | Emergency (ER) | payer OTHER ==
--- NOTE | 2017-06-19 22:30 | NUR ---
PATIENT CALLED IN FOR TRIAGE AND HE SAID, HE "WANTS TO BE THE LAST WHEN EVERYBODY IS FINISH." NAD NOTED.
--- NOTE | 2017-06-20 00:42 | NUR ---
CALLED FOR TRIAGED, NO ANSWER
--- NOTE | 2017-06-20 02:00 | NUR ---
CALLED IN FOR TRIAGE, NO ANSWER
--- NOTE | 2017-06-20 03:21 | NUR ---
CALLED IN FOR TRIAGE, NO ANSWER. PATIENT LEFT WITHOUT BEING TRIAGE.
== END 2017-06-20 03:22 | disposition left against medical advice (07) ==
LOC: ER 22:25
DX: Z53.21 Procedure and treatment not carried out due to patient leaving prior to being seen by health care provider (principal)
CPT/HCPCS: A4606; Z7610

== ENCOUNTER 2017-07-16 01:47 | Emergency (ER) | payer OTHER ==
[~2017-07-16] VITALS: Ht 167.6 cm; Wt 68.0 kg
--- NOTE | 2017-07-16 01:58 | NUR ---
PT WANTED MEDICATION REFILL. MD CABALLERO REFUSED TO REFILL PAIN MEDICATIONS REQUESTED. PT LEFT WITHOUT BEING SEEN TO GO TO [facility]. PT IS IN STABLE CONDITION A/OX4 NAD
--- NOTE | 2017-07-16 04:08 | NUR ---
PT BACK FOR SAME REASON REGARDING REFILL OF MEDICATIONS. MD CABALLERO HAS REFUSED AND PT UNDERSTANDS REASONS WHY. STABLE CONDITION VSS
[2017-07-16 04:11] VITALS: BP 125/60
== END 2017-07-16 04:10 | disposition left against medical advice (07) ==
LOC: ER 01:47
DX: Z00.8 Encounter for other general examination (principal); K21.9 Gastro-esophageal reflux disease without esophagitis; M00.9 Pyogenic arthritis, unspecified; Z88.2 Allergy status to sulfonamides; Z88.1 Allergy status to other antibiotic agents; Z88.8 Allergy status to other drugs, medicaments and biological substances
CPT/HCPCS: A4606; Z7502; Z7610